=== PATIENT | female | born 1960 | race African-American/Black ===

== ENCOUNTER 2017-02-04 23:01 | Emergency (ER) | payer SELFPAY ==
[2017-02-04 23:57] LABS: #Eosinphils 0.3 thou/uL (0.0-0.7); #Monocytes 0.8 thou/uL (0.11-0.59); #Neutrophils 3.6 thou/uL (1.40-6.50); %Basophils 0.6 % (0.0-1.0); %Eosinophils 3.5 % (0.0-10.0); %Lymphocytes 38.4 % (21.0-51.0); %Monocytes 10.3 % (0.0-10.0); Mean Platelet Volume 7.1 fL (7.4-10.4); Red Blood Cell (RBC) Count 4.17 mill/uL (4.20-5.40); White Blood Cell (WBC) Count 7.7 thou/uL (4.8-10.8)
[2017-02-05] LABS: ALT (SGPT) 12 U/L (8-55); AST (SGOT) 11 U/L (5-34); Alkaline Phosphatase 71 U/L (40-150); Anion Gap 9 mmol/L (10-20); BUN (Urea Nitrogen) 7 mg/dL (9.8-20.1); Bilirubin, Total 0.2 mg/dL (0.2-1.2); Calc. Creatinine Clearance 0 mL/min (70-130); Calcium 9.9 mg/dL (7.8-10.44); Carbon Dioxide 29 mmol/L (22-29); Chloride 104 mmol/L (98-107); Estimated GFR-MDRD 73; Globulin 3.8 g/dL (2.4-3.5); Protein, Total 7.6 g/dL (6.0-8.3)
== END 2017-02-04 23:45 | disposition home or self-care (01) ==
LOC: ERS 23:01
DX: I10 Essential (primary) hypertension (principal); E78.5 Hyperlipidemia, unspecified; J44.9 Chronic obstructive pulmonary disease, unspecified; E11.9 Type 2 diabetes mellitus without complications; F25.0 Schizoaffective disorder, bipolar type; Z87.891 Personal history of nicotine dependence; Z79.82 Long term (current) use of aspirin; Z79.4 Long term (current) use of insulin; Z79.899 Other long term (current) drug therapy
CPT/HCPCS: 36415; 80053; 85025; 99283

== ENCOUNTER 2017-02-24 10:50 | Inpatient (IN) | payer OTHER, SELFPAY ==
[2017-02-24 11:37] LABS: Hematocrit 34.1 % (36.0-47.0); Mean Platelet Volume 7.1 fL (7.4-10.4); Red Blood Cell (RBC) Count 3.75 mill/uL (4.20-5.40); White Blood Cell (WBC) Count 8.3 thou/uL (4.8-10.8)
[2017-02-24 12:01] LABS: ALT (SGPT) 30 U/L (8-55); AST (SGOT) 27 U/L (5-34); Alkaline Phosphatase 70 U/L (40-150); Anion Gap 12 mmol/L (10-20); BUN (Urea Nitrogen) 9 mg/dL (9.8-20.1); Bilirubin, Total 0.6 mg/dL (0.2-1.2); Calc. Creatinine Clearance 0 mL/min (70-130); Calcium 9.9 mg/dL (7.8-10.44); Carbon Dioxide 24 mmol/L (22-29); Chloride 88 mmol/L (98-107); Estimated GFR-MDRD 83; Globulin 3.7 g/dL (2.4-3.5); Metamyelocyte 1 % (0-0); Neutrophil 51 % (42-75); Protein, Total 7.7 g/dL (6.0-8.3); Reactive Lymphocytes 1 % (0-10)
[2017-02-24 14:11] LABS: Bilirubin Negative (Negative); Blood, Urine Negative (Negative); Glucose, Urine (Dipstick) Negative (Negative); Ketone, Urine Negative (Negative); Nitrite Negative (Negative); Protein, Urine (Dipstick) Negative (Neg-Trace); Urobilinogen 0.2 mg/dL (0.2-1.0)
[2017-02-24 14:12] LABS: Bacteria/HPF Rare-Few HPF (None Seen); Hyaline Casts/LPF 0-3 HYALINE CAST LPF (0-3 Hyaline); RBC/HPF 0-3 HPF (0-3); Squamous Epithelial None Seen HPF (0-3); WBC/HPF None Seen HPF (0-3)
[2017-02-24] MEDS ORDERED: Dextrose 50% Abboject 50 ML SYRINGE SLOW IVP PRN (15:13)
[2017-02-24] MEDS ORDERED: Dextrose 5% in Water 1,000 ML IV PRN (15:13)
[2017-02-24] MEDS ORDERED: Sodium Chloride 0.9% 1,000 ML IV SCH (15:13)
[2017-02-24 15:38] LABS: Osmolality, Urine 149 mOsm/kg (300-900)
[2017-02-24 15:49] LABS: Sodium, Urine 32 mmol/L (Not Available); Urea Nitrogen, Random Urine 135 mg/dl
[2017-02-24 16:02] VITALS: BMI 36.4
[2017-02-24] MEDS: Atorvastatin Calcium 10 MG TAB PO SCH (16:26)
[2017-02-24] MEDS: Gabapentin 300 MG CAP PO SCH ×2 (16:27→20:40)
[2017-02-24] MEDS: cloNIDine 0.1 MG TAB PO SCH ×2 (16:27→20:40)
[2017-02-24] MEDS ORDERED: FLU VACC QS2017-18 36 mo. & older 0.5 ML SYRINGE IM ONE (17:00)
--- NOTE | 2017-02-24 17:22 | HP-2 ---
DATE OF SERVICE: 02/24/2017 TIME: 1400 hours. CODE STATUS: FULL. PRIMARY CARE PHYSICIAN: [facility]. ATTENDING PHYSICIAN: Armando Castro M.D. RESIDENT: Kervin Dash D.O. HISTORIAN: Patient. SPECIALIST: FADI. CHIEF COMPLAINT: Lightheadedness. HISTORY OF PRESENT ILLNESS: A 56-year-old female here with a complaint of dizziness that started this morning. She had similar symptoms in November where she was diagnosed with hyponatremia which was associated with hydrochlorothiazide. Since her previous discharge, she had been off of HCTZ; however, within the last week she was restarted on the medication by her PCP. In the emergency room, she has sodium of 120. Dr. Rosas was consulted in the emergency room and it was recommended that she will be started on 75 mL per hour normal saline and be admitted. PAST MEDICAL HISTORY: Hypertension, COPD, type 2 diabetes, bipolar disorder, and schizophrenia. PAST SURGICAL HISTORY: Bilateral knee replacement, right shoulder replacement, and hysterectomy. ALLERGIES: IODINE. MEDICATIONS: Lisinopril 40 mg daily, iron 325 mg daily, ASA 81 mg daily, folic acid 400 mcg daily, hydrochlorothiazide 25 mg daily, carvedilol 25 mg b.i.d., lovastatin 20 mg daily, gabapentin 300 mg 2 tabs t.i.d., amlodipine 50 mg daily , clonidine 0.1 mg t.i.d., amitriptyline 25 mg at bedtime p.r.n. for sleep, insulin 70/30, 30 units daily, and Invega Sustenna injection. FAMILY HISTORY: Maternal lung cancer, paternal CVA and CAD. SOCIAL HISTORY: Tobacco 2 packs per day. She quit within the last 10 years a 48-[id number]-gkfs history. ETOH: None. Drugs: None. REVIEW OF SYSTEMS: GENERAL: Denies fever, chills, change in appetite, weight loss, no night sweats , or fatigue. HEENT: Denies vision changes or eye pain. ENT: Nasal congestion or rhinorrhea. RESPIRATORY: Admits to cough at night and shortness of breath that she associates with COPD. CARDIOVASCULAR: Denies any chest pain, palpitations or edema. GASTROINTESTINAL: Denies any nausea, vomiting, or diarrhea. GENITOURINARY: Denies any dysuria or polyuria. SKIN: Denies any rashes or lesions. MUSCULOSKELETAL: Denies any pain or tenderness. NEUROLOGIC: Denies any weakness or numbness. Admits to presyncope. PSYCHIATRIC: Denies any anxiety or depression. PHYSICAL EXAMINATION: VITAL SIGNS: Blood pressure 136/91, pulse 79, respiratory rate 20, T-max 98.5, pulse oximetry 97% on room air, current weight is 90.72 kilograms. GENERAL: The patient is alert and oriented x3 in no apparent distress. HEENT: PERRLA, EOMI. NECK: Supple, without lymphadenopathy. CARDIAC: Regular rate and rhythm without murmur or gallops. RESPIRATORY: There is normal effort. CTA bilaterally. No retractions. SKIN: Warm and dry. ABDOMEN: Soft and nontender, bowel sounds in all 4 quadrants without mass or distention. EXTREMITIES: There is no cyanosis or edema. MUSCULOSKELETAL: Tone is within normal limits. NEUROLOGICAL: No focal neurological deficits and cranial nerves II-XII are grossly intact. LABORATORY DATA: CBC: Hemoglobin 11.9, hematocrit 34.1, white count 8.3, platelets 219, MCV is 91, 51% neutrophils. CMP: Sodium 120, potassium 4.4, chloride 88, bicarbonate 24, BUN is 9, creatinine is 0.85, glucose is 143, calcium is 9.9, total serum protein 7.7, albumin is 4.0. AST 27, ALT 30, alkaline phosphatase 70, total bilirubin 0.6, GFR is 83. EKG shows ST abnormalities in leads I, II, aVF, V5 and V6. These are consistent with previous EKG changes. ASSESSMENT AND PLAN: This is a 56-year-old female with symptomatic hyponatremia. 1. Hyponatremia, we will run normal saline at 75 mL per hour per Nephrology recommendations. We will do BMP q.2 x3 and then check BMP daily with a goal to raise sodium no more than 12 mL per liter within the first 24 hours. Stop hydrochlorothiazide. Monitor orthostatic vitals. 2. Anemia. The patient is asymptomatic. Hemoglobin is in a range that is normal for her. According to previous record, she is typically in the mid to high 11's, low to mid 13's. We will follow CBC and morning labs. 3. Hypertension. Restart lisinopril, Coreg, amlodipine, hold hydrochlorothiazide as above. 4. Chronic obstructive pulmonary disease. The patient currently does not have any increased O2 need and is satting well on room air. Monitor O2 sat with her finals and provide oxygen support p.r.n. 5. Type 2 diabetes. We will restart her home 70/30 and metformin. Accu-Cheks a.c. and at bedtime, consistent carb diet. 6. Bipolar disorder. The patient is stable. She is on Invega injection and is currently not due. 7. Schizophrenia, stable as above. 8. Tobacco use, counseled cessation of this. YUMIKOD
[2017-02-24] MEDS: HumaLOG 300 UNITS/3 ML VIAL SC PRN (17:26)
[2017-02-24 17:47] LABS: Anion Gap 13 mmol/L (10-20); BUN (Urea Nitrogen) 9 mg/dL (9.8-20.1); Calc. Creatinine Clearance 99 mL/min (70-130); Calcium 9.9 mg/dL (7.8-10.44); Carbon Dioxide 24 mmol/L (22-29); Chloride 91 mmol/L (98-107); Estimated GFR-MDRD 81
[2017-02-24] MEDS: Sodium Chloride 0.9% 1,000 ML IV SCH (18:57)
[2017-02-24 20:05] LABS: Anion Gap 10 mmol/L (10-20); BUN (Urea Nitrogen) 9 mg/dL (9.8-20.1); Calc. Creatinine Clearance 77 mL/min (70-130); Calcium 9.5 mg/dL (7.8-10.44); Carbon Dioxide 26 mmol/L (22-29); Chloride 92 mmol/L (98-107); Estimated GFR-MDRD 61
[2017-02-24] MEDS: Amitriptyline HCl 25 MG TAB PO SCH (20:40)
[2017-02-24] MEDS: Carvedilol 25 MG TAB PO SCH (20:40)
[2017-02-24] MEDS: Insulin NPH/Reg Insulin Hm 300 UNITS/3 ML VIAL SC SCH (20:41)
[2017-02-24] MEDS: HYDROcodone/Acetaminophen 10/325 mg Tablet PO PRN (22:04)
[2017-02-24 23:23] LABS: Anion Gap 9 mmol/L (10-20); BUN (Urea Nitrogen) 11 mg/dL (9.8-20.1); Calc. Creatinine Clearance 88 mL/min (70-130); Calcium 9.4 mg/dL (7.8-10.44); Carbon Dioxide 28 mmol/L (22-29); Chloride 93 mmol/L (98-107); Estimated GFR-MDRD 72
[2017-02-25 02:11] LABS: Hematocrit 33.3 % (36.0-47.0); Mean Platelet Volume 6.6 fL (7.4-10.4); Red Blood Cell (RBC) Count 3.66 mill/uL (4.20-5.40); White Blood Cell (WBC) Count 6.9 thou/uL (4.8-10.8)
[2017-02-25 02:24] LABS: Neutrophil 51 % (42-75)
[2017-02-25 02:39] LABS: Anion Gap 10 mmol/L (10-20); BUN (Urea Nitrogen) 13 mg/dL (9.8-20.1); Calc. Creatinine Clearance 79 mL/min (70-130); Calcium 9.2 mg/dL (7.8-10.44); Carbon Dioxide 26 mmol/L (22-29); Chloride 91 mmol/L (98-107); Estimated GFR-MDRD 63
[2017-02-25] MEDS: Sodium Chloride 0.9% 1,000 ML IV SCH ×2 (05:43→09:07)
--- NOTE | 2017-02-25 06:10 | CON ---
DATE OF CONSULTATION: 02/24/2017 CONSULTING PHYSICIAN: Dr. Castro. REASON FOR CONSULTATION: Hyponatremia. REASON FOR ADMISSION: Lightheadedness. HISTORY OF PRESENT ILLNESS: A 56-year-old female with history of hypertension, COPD, type 2 diabete s who came to the hospital with lightheadedness and was found to have a sodium level of 120. Carl aleman does have a history of hyponatremia, but sodium level was normal. The patient was recently restar yasmin on hydrochlorothiazide. No fever or chills, no nausea, vomiting, diarrhea reported. PAST MEDICAL HISTORY: Positive for hypertension, COPD, type 2 diabetes, bipolar disorder, schizophr enia. PAST SURGICAL HISTORY: Bilateral knee replacement, right shoulder repair, hysterectomy. HOME MEDICATIONS: Lisinopril, iron, aspirin, folic acid, hydrochlorothiazide, carvedilol, lovastati n, gabapentin, amlodipine, clonidine, amitriptyline, insulin 70/30, Invega. FAMILY HISTORY: No history of any kidney disease. SOCIAL HISTORY: Smokes 2 packs per day. No alcohol or illicit drug abuse. REVIEW OF SYSTEMS: The following complete review of systems was negative, unless otherwise mentione d in the HPI or below: Constitutional: Weight loss or gain, ability to conduct usual activities. Skin: Rash, itching. Eyes: Double vision, pain. ENT/Mouth: Nose bleeding, neck stiffness, pain, tenderness. Cardiovascular: Palpitations, dyspnea on exertion, orthopnea. Respiratory: Shortness of breath, wheezing, cough, hemoptysis, fever or night sweats. Gastrointestinal: Poor appetite, abdominal pain, heartburn, nausea, vomiting, constipation, or diar esperanza. Genitourinary: Urgency, frequency, dysuria, nocturia. Musculoskeletal: Pain, swelling. Neurologic/Psychiatric: Anxiety, depression. Allergy/Immunologic: Skin rash, bleeding tendency. ALLERGIES: IODINE. PHYSICAL EXAMINATION: GENERAL: Well-built female in no apparent distress. VITAL SIGNS: Temperature 98.2, pulse 82, respirations 20, blood pressure 137/76. HEENT: Atraumatic, normocephalic. Oral mucosa is moist. NECK: Supple, no masses. CARDIOVASCULAR: S1 and S2 heard. Rate and rhythm regular. RESPIRATORY: Clear. ABDOMEN: Soft. MUSCULOSKELETAL: No tenderness. No edema. DERMATOLOGIC: No skin rash. NEUROLOGIC: Alert, awake. PSYCHIATRIC: Mood and affect normal. LABORATORY DATA: Hemoglobin is 11.9, potassium is 4.2, BUN is 9, creatinine is 0.8, sodium is 124 f rom 120, it was 138 on 02/04/2017. ASSESSMENT AND PLAN: 1. Hyponatremia. Urine studies suggest possible volume depletion and sodium level is better with I V fluids. Patient was on normal saline at 75 mL per hour, reduced to 50 mL per hour. Check sodium q.6 hours x4 and orders placed. Hold IV fluids if sodium level more than 128 mEq not more nahomy n 18 in 48 hours. 2. Hypochloremia. 3. Hypertension. Hold hydrochlorothiazide for now and continue other medications and up titrate ot her medications. 4. History of bipolar disorder. Plan is to go on IV fluids, hold hydrochlorothiazide and monitor sodium closely and we will follow. Thank you for the consultation.
--- NOTE | 2017-02-25 08:55 | PDOC.FM ---
- Subjective Subjective: Patient reports that she is feeling a little bit better this AM. She does not have as much dizziness or lightheadedness. She does report that she is still feeling muscle aches/cramps and that her skin hurts. She denies any seizures, chest pain, SOB. She had some nausea after eating last night and reports that she has chronic constipation and has not had a BM in about 2 weeks. - Objective MAR Reviewed: Yes Vital Signs & Weight: Vital Signs (12 hours) Temp Pulse Resp BP Pulse Ox 02/25/17 04:00 98.5 F 80 16 109/56 L 95 02/25/17 00:00 75 16 101/51 L Weight Weight 87.362 kg I&O: 02/24/17 02/25/17 02/26/17 06:59 06:59 06:59 Intake Total 1739 Output Total 1900 Balance -161 Result Diagrams: 02/25/17 02:01 02/25/17 02:01 Phys Exam - Physical Examination Constitutional: NAD HEENT: moist MMs Respiratory: no wheezing, no rales, no rhonchi, clear to auscultation bilateral Cardiovascular: RRR, no significant murmur, no rub, gallop Gastrointestinal: soft, non-tender, positive bowel sounds Musculoskeletal: no edema, pulses present Neurological: non-focal, moves all 4 limbs Psychiatric: normal affect, A&O x 3 Dx/Plan (1) Hyponatremia with extracellular fluid depletion Code(s): E87.1 - HYPO-OSMOLALITY AND HYPONATREMIA Status: Acute Plan: Thiazide-induced hyponatremia, pt was restarted on her HCTZ about 6 days ago and has a history of thiazide induced hyponatremia about 2 months ago which resolved with discontinuation of the thiazide and light fluids. At the time she also had hyperkalemia, but she was also on spironolactone, so that was also discontinued. -d/c HCTZ -NS @ 50 mL/hr -Vasudev with Nephrology was consulted, appreciate recs -Monitor BMP, do not want Na to increase > 8-12 in 24 hours -Encourage PO intake (2) Diabetes mellitus Code(s): E11.9 - TYPE 2 DIABETES MELLITUS WITHOUT COMPLICATIONS Status: Chronic Qualifiers: Diabetes mellitus type: type 2 Diabetes mellitus complication status: with unspecified complications Diabetes mellitus termite control servicer insulin use: with termite control servicer use Qualified Code(s): E11.8 - Type 2 diabetes mellitus with unspecified complications; Z79.4 - [facility] (current) use of insulin; Z79.4 - ad terminal makeup operator ( current) use of insulin; Z79.4 - ad terminal makeup operator (current) use of insulin; Z79.4 - [facility] (current) use of insulin Plan: Pt on 70/30 at home for her diabetes -Diabetic diet -Accuchecks ACHS -70/30 BID -SSI (3) Hypertension Code(s): I10 - ESSENTIAL (PRIMARY) HYPERTENSION Status: Chronic Qualifiers: Hypertension type: essential hypertension Qualified Code(s): I10 - Essential (primary) hypertension Plan: Pt has HTN and is on several home medications. -Will continue all medications except HCTZ 2/2 hyponatremia (4) Constipation Code(s): K59.00 - CONSTIPATION, UNSPECIFIED Status: Acute Qualifiers: Constipation type: unspecified constipation type Qualified Code(s): K59.00 - Constipation, unspecified Plan: Pt has chronic constipation and has not had a BM in about 2-3 weeks. -Will give stool softener and laxative (5) COPD (chronic obstructive pulmonary disease) Status: Chronic Qualifiers: COPD type: unspecified COPD Plan: Patient has COPD, not in an acute exacerbation -Duonebs prn -O2 prn (6) Bipolar 1 disorder Code(s): F31.9 - BIPOLAR DISORDER, UNSPECIFIED Status: Chronic Plan: Stable, Pt gets Invega
[2017-02-25] MEDS ORDERED: Bisacodyl 5 MG TAB PO PRN (09:06)
[2017-02-25] MEDS ORDERED: Ondansetron ODT 8 MG TAB SL PRN (09:06)
--- NOTE | 2017-02-25 09:34 | PRG ---
DATE OF SERVICE: 02/25/2017 SUBJECTIVE: Patient was seen and examined at bedside and overnight events noted. Patient denies an y shortness of breath or chest pain or palpitation. No history of nausea or vomiting or diarrhea or fever or chills or cramps. OBJECTIVE: GENERAL: This is a well built female in no apparent distress. VITAL SIGNS: Temperature 98.5, pulse 80, respiratory rate 16, blood pressure 109/56. HEENT: Atraumatic, normocephalic. Oral mucosa is moist. NECK: Supple. CARDIOVASCULAR: S1 and S2 heard, rate and rhythm regular. RESPIRATORY: Clear to auscultation. GASTROINTESTINAL: Abdomen is soft. MUSCULOSKELETAL: No tenderness, no edema. DERMATOLOGIC: No skin rash. NEUROLOGIC: Alert and awake and oriented X3. No focal neurologic deficits. Moving all the extremi ties. PSYCHIATRIC: Mood and affect normal. LABORATORY DATA: Potassium is 3.9, sodium is 123, goes up to 126, BUN 13, creatinine is 1.08. ASSESSMENT AND PLAN: 1. Hyponatremia. Sodium level is better from admission. We will continue slow correction of sodiu m with close monitoring. We will continue on intravenous fluids for now. The patient is feeling be tter. 2. Acute kidney injury. Creatinine is also better with IV fluids. 3. Continue to hold hydrochlorothiazide. 4. Hypochloremia. 5. Hypertension, stable. 6. History of bipolar disorder. 7. Sodium is responding to IV fluids. We will continue slow correction with close monitoring of so dium. Plan is to check sodium at 3:00 p.m. and 8:00 p.m. today and then a.m. labs. We will also ch bg TSH and cortisol level in the a.m. We will follow.
[2017-02-25] MEDS ORDERED: Senokot S 8.6-50 MG TAB PO SCH ×3 (09:45→21:00)
[2017-02-25] MEDS: Gabapentin 300 MG CAP PO SCH ×3 (09:55→20:23)
[2017-02-25] MEDS: Aspirin 81 mg Enteric Coated Tablet PO SCH (09:55)
[2017-02-25] MEDS: Ferrous Sulfate 325 MG TAB PO SCH (09:55)
[2017-02-25] MEDS: Folic Acid 1 MG TAB PO SCH (09:56)
[2017-02-25] MEDS: Cyanocobalamin (Vitamin B-12) 1,000 MCG TAB PO SCH (09:56)
[2017-02-25] MEDS: Carvedilol 25 MG TAB PO SCH ×2 (09:56→20:24)
[2017-02-25] MEDS: Insulin NPH/Reg Insulin Hm 300 UNITS/3 ML VIAL SC SCH ×2 (09:57→20:22)
[2017-02-25] MEDS: Enoxaparin Sodium 40 MG/0.4 ML SYRINGE SC SCH (09:59)
[2017-02-25] MEDS: cloNIDine 0.1 MG TAB PO SCH ×3 (10:49→20:23)
[2017-02-25] MEDS: Lisinopril 20 MG TAB PO SCH (12:04)
[2017-02-25] MEDS: HumaLOG 300 UNITS/3 ML VIAL SC PRN (12:05)
--- NOTE | 2017-02-25 13:08 | ADD-PRG ---
ADDENDUM: To the note of Dr. Anjelica Starkey. Ms. Quinteros is a pleasant 56-year-old female patient who was restarted on hydrochlorothiazide diureti c for hypertension, which had previously been discontinued, because of hyponatremia. She presented feeling sort of lightheaded and dizzy, in the ER was noted to have a serum sodium level of 120. Her urine and serum osmolality studies and sodium studies are consistent with hyponatremia secondary to thiazide diuretic. Dr. Rosas has also been consulted and has started a saline drip, which is alr elise correcting her sodium level. This morning, she is awake, alert, in no distress, complaining on ly of some heartburn, which she has a long history. We will continue the saline infusion monitoring her BMPs.
[2017-02-25] MEDS: Atorvastatin Calcium 10 MG TAB PO SCH (18:16)
[2017-02-25] MEDS: HYDROcodone/Acetaminophen 10/325 mg Tablet PO PRN (18:16)
[2017-02-25] MEDS: Amitriptyline HCl 25 MG TAB PO SCH (20:23)
[2017-02-25] MEDS: Acetaminophen 325 MG TAB PO PRN (20:24)
[2017-02-26] MEDS: Sodium Chloride 0.9% 1,000 ML IV SCH (03:52)
[2017-02-26 05:35] LABS: Anion Gap 11 mmol/L (10-20); BUN (Urea Nitrogen) 16 mg/dL (9.8-20.1); Calc. Creatinine Clearance 86 mL/min (70-130); Calcium 9.4 mg/dL (7.8-10.44); Carbon Dioxide 25 mmol/L (22-29); Chloride 99 mmol/L (98-107); Estimated GFR-MDRD 70
[2017-02-26 05:41] LABS: Hematocrit 34.5 % (36.0-47.0); Mean Platelet Volume 7.6 fL (7.4-10.4); Red Blood Cell (RBC) Count 3.72 mill/uL (4.20-5.40); White Blood Cell (WBC) Count 5.4 thou/uL (4.8-10.8)
[2017-02-26 05:42] LABS: Band 4 % (5-11); Neutrophil 59 % (42-75)
--- NOTE | 2017-02-26 08:24 | PDOC.FM ---
- Subjective Subjective: The patient reports having 4 runny bowel movements yesterday after being given the laxative, but she states that her abdominal pain has improved since then and she is not having any more nausea or runny BM's. She reports that she felt really hot all over yesterday afternoon and achy. She denies any increased cough , SOB, sore throat, chest pain, abdominal pain. She does report a small amount of dysuria and states that she was recently treated for a UTI with abx. - Objective MAR Reviewed: Yes Vital Signs & Weight: Vital Signs (12 hours) Temp Pulse Resp BP BP Pulse Ox 02/26/17 04:00 100.2 F H 86 16 110/59 L 94 L 02/25/17 23:30 99.8 F H 02/25/17 20:23 135/62 Weight Weight 86.636 kg I&O: 02/25/17 02/26/17 02/27/17 06:59 06:59 06:59 Intake Total 1739 1495 Output Total 1900 Balance -161 1495 Result Diagrams: 02/26/17 04:31 02/26/17 04:31 Additional Labs: TSH 0.0091, Free T4 1.14, AM Cortisol 14.2 Fecal Lactoferrin negative, C. diff negative Phys Exam - Physical Examination Constitutional: NAD HEENT: moist MMs Respiratory: no wheezing, no rales, no rhonchi, clear to auscultation bilateral Cardiovascular: RRR, no significant murmur, no rub, gallop Gastrointestinal: soft, non-tender, no distention, positive bowel sounds Musculoskeletal: no edema, pulses present Neurological: non-focal, moves all 4 limbs Psychiatric: normal affect, A&O x 3 Dx/Plan (1) Hyponatremia with extracellular fluid depletion Code(s): E87.1 - HYPO-OSMOLALITY AND HYPONATREMIA Status: Acute Plan: Thiazide-induced hyponatremia, pt was restarted on her HCTZ about 6 days prior to admission and has a history of thiazide-induced hyponatremia about 2 months ago which resolved with discontinuation of the thiazide and light fluids. At the time she also had hyperkalemia, but she was also on spironolactone, so that was also discontinued. Na has improved from 120 to 131 over about 36 hours with light fluids -d/c HCTZ -Vasudev with Nephrology was consulted, appreciate recs -Monitor Na, do not want Na to increase > 8-12 in 24 hours -Encourage PO intake (2) Diabetes mellitus Code(s): E11.9 - TYPE 2 DIABETES MELLITUS WITHOUT COMPLICATIONS Status: Chronic Qualifiers: Diabetes mellitus type: type 2 Diabetes mellitus complication status: with unspecified complications Diabetes mellitus detention insulin use: with terminal operator use Qualified Code(s): E11.8 - Type 2 diabetes mellitus with unspecified complications; Z79.4 - long-term (current) use of insulin; Z79.4 - long-term ( current) use of insulin; Z79.4 - intermediate school teacher (current) use of insulin; Z79.4 - long-term (current) use of insulin Plan: Pt on 70/30 at home for her diabetes -Diabetic diet -Accuchecks ACHS -70/30 BID -SSI (3) Hypertension Code(s): I10 - ESSENTIAL (PRIMARY) HYPERTENSION Status: Chronic Qualifiers: Hypertension type: essential hypertension Qualified Code(s): I10 - Essential (primary) hypertension Plan: Pt has HTN and is on several home medications. -Will continue all medications except HCTZ 2/2 hyponatremia (4) Constipation Code(s): K59.00 - CONSTIPATION, UNSPECIFIED Status: Resolved Qualifiers: Constipation type: unspecified constipation type Qualified Code(s): K59.00 - Constipation, unspecified Plan: Pt has chronic constipation and has not had a BM in about 2-3 weeks. Gave stool softener and laxative - Pt had several BM's after this. She is now feeling much better from this standpoint. (5) COPD (chronic obstructive pulmonary disease) Status: Chronic Qualifiers: COPD type: unspecified COPD Plan: Patient has COPD, not in an acute exacerbation -Duonebs prn -O2 prn (6) Bipolar 1 disorder Code(s): F31.9 - BIPOLAR DISORDER, UNSPECIFIED Status: Chronic Plan: Stable, Pt gets Invega
[2017-02-26] MEDS: cloNIDine 0.1 MG TAB PO SCH ×3 (08:42→21:40)
[2017-02-26] MEDS: Cyanocobalamin (Vitamin B-12) 1,000 MCG TAB PO SCH (08:42)
[2017-02-26] MEDS: Acetaminophen 325 MG TAB PO PRN ×2 (08:42→16:45)
[2017-02-26] MEDS: Folic Acid 1 MG TAB PO SCH (08:42)
[2017-02-26] MEDS: Ferrous Sulfate 325 MG TAB PO SCH (08:42)
[2017-02-26] MEDS: Lisinopril 20 MG TAB PO SCH (08:42)
[2017-02-26] MEDS: Aspirin 81 mg Enteric Coated Tablet PO SCH (08:43)
[2017-02-26] MEDS: HumaLOG 300 UNITS/3 ML VIAL SC PRN ×2 (08:43→16:45)
[2017-02-26] MEDS: Insulin NPH/Reg Insulin Hm 300 UNITS/3 ML VIAL SC SCH ×2 (08:43→21:41)
[2017-02-26] MEDS: Gabapentin 300 MG CAP PO SCH ×3 (08:43→21:41)
[2017-02-26] MEDS: Carvedilol 25 MG TAB PO SCH ×2 (08:43→21:41)
[2017-02-26] MEDS: Enoxaparin Sodium 40 MG/0.4 ML SYRINGE SC SCH (08:44)
--- NOTE | 2017-02-26 11:18 | ADD-PRG ---
This is an addendum to the note of Dr. Anjelica Starkey. Ms. Quinteros feels fine this morning except for some vague nausea. She had a low grade fever last nig ht, but is currently afebrile other than nausea asymptomatic for illness. She was found to have a l ow TSH, but a normal free T4. This could represent euthyroid sick syndrome or an early subclinical hyperthyroidism. This needs to be followed as an outpatient. We will go ahead and order a TSH rece ptor antibody to consider the possibility of early Graves' disease. In the event, she has no sympto ms of hyperthyroidism and her free T4 is normal.
[2017-02-26 16:26] LABS: Hematocrit 37.1 % (36.0-47.0); Mean Platelet Volume 7.6 fL (7.4-10.4); Red Blood Cell (RBC) Count 4.01 mill/uL (4.20-5.40); White Blood Cell (WBC) Count 3.7 thou/uL (4.8-10.8)
[2017-02-26] MEDS: Atorvastatin Calcium 10 MG TAB PO SCH (16:45)
[2017-02-26 17:14] LABS: Band 5 % (5-11); Metamyelocyte 1 % (0-0); Myelocyte 1 % (0-0); Neutrophil 39 % (42-75); Ovalocytes SLIGHT = 2-5 cells (100X) (0-1/hpf); Polychromasia SLIGHT = 2-3 cells (100X) (0-2/hpf); Reactive Lymphocytes 3 % (0-10)
[2017-02-26] MEDS ORDERED: Sodium Chloride 0.9% 500 ML IV SCH (17:30)
--- NOTE | 2017-02-26 18:44 | RAD ---
TWO VIEW CHEST: 02/26/17 COMPARISON: 12/29/16 INDICATION: Fever, nocturnal cough. FINDINGS: There is extensive artifact overlying the chest limiting detail. No consolidation, effusion, or pneu mothorax. The cardiac silhouette is accentuated by portable technique. The convexity curvature cente red at the low thoracic spine. No additional significant interval change. IMPRESSION: No lobar consolidation. POS: [facility]
--- NOTE | 2017-02-26 19:46 | PRG ---
DATE OF SERVICE: 02/26/2017 SUBJECTIVE: Patient was seen and examined at bedside and overnight events noted. Patient denies an y shortness of breath or chest pain or palpitation. No history of nausea or vomiting or diarrhea or fever or chills or cramps. OBJECTIVE: GENERAL: This is a well-built female, in no apparent distress. VITAL SIGNS: Temperature . HEENT: Atraumatic, normocephalic, oral mucosa is moist. NECK: Supple. CARDIOVASCULAR: S1, S2 heard, rate and rhythm regular. RESPIRATORY: Clear to auscultation. GASTROINTESTINAL: Abdomen is soft. MUSCULOSKELETAL: No tenderness, no edema. DERMATOLOGIC: No skin rash. NEUROLOGIC: Alert and awake and oriented x3, no focal neurologic deficits. Moving all the extremit ies. PSYCHIATRIC: Mood and affect normal. LABORATORY DATA: Sodium is 131, BUN 16, creatinine 0.9. Cortisol is 14.2, TSH is 0.79. Free T3 an d T4 level is normal. ASSESSMENT AND PLAN: 1. Hyponatremia, most likely volume depletion. IV fluids. TSH level is low, but free T3 and T4 le mendy appears to be normal. 2. clinical. 3. Hypothyroidism. 4. Acute kidney injury, stable. 5. Continue to hold hydrochlorothiazide. 6. Hypertension, stable. 7. Bipolar disorder. After her blood pressure medicines as needed. Currently, blood pressure is stable and follow up thy roid studies and continue IV fluids as tolerated, we will follow. Sodium level is much better.
[2017-02-26 20:14] LABS: Bilirubin Negative (Negative); Blood, Urine Negative (Negative); Glucose, Urine (Dipstick) Negative (Negative); Ketone, Urine Negative (Negative); Nitrite Negative (Negative); Protein, Urine (Dipstick) Negative (Neg-Trace)
[2017-02-26 20:31] LABS: Bacteria/HPF None Seen HPF (None Seen); RBC/HPF 0-3 HPF (0-3); Squamous Epithelial 0-3 HPF (0-3)
[2017-02-26 20:32] LABS: Hyaline Casts/LPF NONE SEEN LPF (0-3 Hyaline)
[2017-02-26] MEDS: Amitriptyline HCl 25 MG TAB PO SCH (21:40)
[2017-02-27 05:31] LABS: Anion Gap 14 mmol/L (10-20); BUN (Urea Nitrogen) 16 mg/dL (9.8-20.1); Calc. Creatinine Clearance 90 mL/min (70-130); Carbon Dioxide 21 mmol/L (22-29); Chloride 105 mmol/L (98-107); Estimated GFR-MDRD 75
[2017-02-27 06:01] LABS: Band 2 % (5-11); Mean Platelet Volume 7.3 fL (7.4-10.4); Metamyelocyte 1 % (0-0); Neutrophil 37 % (42-75); Red Blood Cell (RBC) Count 3.79 mill/uL (4.20-5.40); White Blood Cell (WBC) Count 3.9 thou/uL (4.8-10.8)
--- NOTE | 2017-02-27 08:06 | PDOC.FM ---
- Subjective Subjective: The patient reports that she ate dinner last night and feels much better. She denies any fevers, chills, nausea, vomiting, diarrhea, constipation, abdominal pain, chest pain, SOB, dysuria. Her muscle cramps are better and her dizziness is gone. She overall is feeling back at her baseline and slept great last night. - Objective MAR Reviewed: Yes Vital Signs & Weight: Vital Signs (12 hours) Temp Pulse Resp BP BP Pulse Ox 02/27/17 04:00 99.5 F 69 18 107/56 L 93 L 02/27/17 00:00 98.4 F 02/26/17 21:40 121/58 L Weight Weight 85.094 kg I&O: 02/26/17 02/27/17 02/28/17 06:59 06:59 06:59 Intake Total 1495 1620 Output Total 1150 Balance 1495 470 Result Diagrams: 02/27/17 04:38 02/27/17 04:38 Phys Exam - Physical Examination Constitutional: NAD HEENT: moist MMs Respiratory: no wheezing, no rales, no rhonchi, clear to auscultation bilateral Cardiovascular: RRR, no significant murmur, no rub, gallop Gastrointestinal: soft, non-tender, no distention, positive bowel sounds Musculoskeletal: no edema, pulses present Neurological: non-focal, moves all 4 limbs Psychiatric: normal affect, A&O x 3 Dx/Plan (1) Hyponatremia with extracellular fluid depletion Code(s): E87.1 - HYPO-OSMOLALITY AND HYPONATREMIA Status: Resolved Plan: Thiazide-induced hyponatremia, pt was restarted on her HCTZ about 6 days prior to admission and has a history of thiazide-induced hyponatremia about 2 months ago which resolved with discontinuation of the thiazide and light fluids. At the time she also had hyperkalemia, but she was also on spironolactone, so that was also discontinued. Na has improved from 120 to 139 over 48 hours with light fluids -d/c HCTZ -Vasudev with Nephrology was consulted, appreciate recs -Encourage PO intake (2) Diabetes mellitus Code(s): E11.9 - TYPE 2 DIABETES MELLITUS WITHOUT COMPLICATIONS Status: Chronic Qualifiers: Diabetes mellitus type: type 2 Diabetes mellitus complication status: with unspecified complications Diabetes mellitus middle or intermediate school principal insulin use: with retirement use Qualified Code(s): E11.8 - Type 2 diabetes mellitus with unspecified complications; Z79.4 - longterm (current) use of insulin; Z79.4 - ferry terminal supervisor ( current) use of insulin; Z79.4 - ferry terminal supervisor (current) use of insulin; Z79.4 - ferry terminal supervisor (current) use of insulin Plan: Pt on 70/30 at home for her diabetes -Diabetic diet -Accuchecks ACHS -70/30 BID -SSI (3) Hypertension Code(s): I10 - ESSENTIAL (PRIMARY) HYPERTENSION Status: Chronic Qualifiers: Hypertension type: essential hypertension Qualified Code(s): I10 - Essential (primary) hypertension Plan: Pt has HTN and is on several home medications. Her BP dropped to 90/55 yesterday , gave her a 500mL bolus of NS, which improved her to 121/58. -Will continue all medications except HCTZ 2/2 hyponatremia (4) Constipation Code(s): K59.00 - CONSTIPATION, UNSPECIFIED Status: Resolved Qualifiers: Constipation type: unspecified constipation type Qualified Code(s): K59.00 - Constipation, unspecified Plan: Pt has chronic constipation and has not had a BM in about 2-3 weeks. Gave stool softener and laxative - Pt had several BM's after this. She is now feeling much better from this standpoint. (5) COPD (chronic obstructive pulmonary disease) Status: Chronic Qualifiers: COPD type: unspecified COPD Plan: Patient has COPD, not in an acute exacerbation -Duonebs prn -O2 prn (6) Bipolar 1 disorder Code(s): F31.9 - BIPOLAR DISORDER, UNSPECIFIED Status: Chronic Plan: Stable, Pt gets Invega
[2017-02-27] MEDS: Aspirin 81 mg Enteric Coated Tablet PO SCH (08:56)
[2017-02-27] MEDS: Cyanocobalamin (Vitamin B-12) 1,000 MCG TAB PO SCH (08:57)
[2017-02-27] MEDS: cloNIDine 0.1 MG TAB PO SCH (08:57)
[2017-02-27] MEDS: Carvedilol 25 MG TAB PO SCH (08:57)
[2017-02-27] MEDS: Folic Acid 1 MG TAB PO SCH (08:58)
[2017-02-27] MEDS: Ferrous Sulfate 325 MG TAB PO SCH (08:58)
[2017-02-27] MEDS: Enoxaparin Sodium 40 MG/0.4 ML SYRINGE SC SCH (08:58)
[2017-02-27] MEDS: Insulin NPH/Reg Insulin Hm 300 UNITS/3 ML VIAL SC SCH (08:59)
[2017-02-27] MEDS: Gabapentin 300 MG CAP PO SCH (08:59)
[2017-02-27] MEDS: Lisinopril 20 MG TAB PO SCH (09:01)
[2017-02-27 11:27] VITALS: BP 144/67; TEMP 98.7
--- NOTE | 2017-02-27 12:03 | ADD-PRG ---
DATE OF SERVICE: 02/27/2017 This is an addendum to the note of Dr. Anjelica Starkey. Ms. Quinteros feels much better this morning. She is normotensive with a blood pressure 120/60. Yeste rday she became slightly hypotensive, but responded well to a half liter bolus of normal saline. Sh e states she is feeling back to her baseline and is eating normally. Her sodium is now back up to 1 39. She has been instructed again to not take hydrochlorothiazide. She will be discharged today. We will continue her workup for possible subclinical hyperthyroidism or thyroiditis as an outpatient .
--- NOTE | 2017-02-27 15:00 | PRG ---
DATE OF SERVICE: 02/27/2017 SUBJECTIVE: Patient was seen and examined at bedside and overnight events noted. Patient denies an y shortness of breath or chest pain or palpitation. No history of nausea or vomiting or diarrhea or fever or chills or cramps. OBJECTIVE: GENERAL: This is a well-built female in no apparent distress. VITAL SIGNS: Temperature 97, pulse 73, respiratory rate 16, blood pressure 144/67. HEENT: Atraumatic, normocephalic. Oral mucosa is moist. NECK: Supple. CARDIOVASCULAR: S1 and S2 heard, rate and rhythm regular. RESPIRATORY: Clear to auscultation. GASTROINTESTINAL: Abdomen is soft. MUSCULOSKELETAL: No tenderness, no edema. DERMATOLOGIC: No skin rash. NEUROLOGIC: Alert and awake and oriented X3. No focal neurologic deficits. Moving all the extremi ties. PSYCHIATRIC: Mood and affect normal. LABORATORY DATA: Potassium is 4.0. Sodium is 136. Creatinine is 0.9. ASSESSMENT AND PLAN: 1. Hyponatremia, most likely volume depletion, much better. Sodium level is back to normal. 2. Acute kidney injury, stable. 3. Hypertension. 4. Bipolar disorder. 5. The patient was advised to follow up with clinic in 1 week. Okay to discharge home.
== END 2017-02-27 11:42 | disposition home or self-care (01) | DRG 641 ==
LOC: ERS 10:50 → 2NO 15:50
PROVIDERS: ADMIT Family Medicine; ATTEND Family Medicine
DX: E87.1 Hypo-osmolality and hyponatremia (principal); N17.9 Acute kidney failure, unspecified; E11.8 Type 2 diabetes mellitus with unspecified complications; F20.9 Schizophrenia, unspecified; D64.9 Anemia, unspecified; J44.9 Chronic obstructive pulmonary disease, unspecified; I10 Essential (primary) hypertension; Z79.4 Long term (current) use of insulin; F31.9 Bipolar disorder, unspecified; F17.210 Nicotine dependence, cigarettes, uncomplicated; Z23 Encounter for immunization; Z96.653 Presence of artificial knee joint, bilateral; Z96.611 Presence of right artificial shoulder joint; Z90.710 Acquired absence of both cervix and uterus; E86.9 Volume depletion, unspecified; E87.8 Other disorders of electrolyte and fluid balance, not elsewhere classified; T50.2X5A Adverse effect of carbonic-anhydrase inhibitors, benzothiadiazides and other diuretics, initial encounter; K59.00 Constipation, unspecified; Z88.8 Allergy status to other drugs, medicaments and biological substances
CPT/HCPCS: 36415; 36416; 71020; 80048; 80053; 81003; 81015; 82533; 82570; 83605; 83630; 83930; 83935; 84238; 84300; 84439; 84443; 84481; 84540; 85025; 87040; 87077; 87086; 87149; 87324; 87449; 90471; 90682; 90732; 93005; 96360; A4216; G0008; G0009; J1650; Q2036

== ENCOUNTER 2017-03-10 15:17 | Inpatient (IN) | payer OTHER, SELFPAY ==
[2017-03-10 17:28] LABS: #Basophils 0.1 thou/uL (0.0-0.2); #Eosinphils 0.4 thou/uL (0.0-0.7); #Lymphocytes 3.5 thou/uL (1.20-3.40); #Monocytes 1.1 thou/uL (0.11-0.59); #Neutrophils 5.8 thou/uL (1.40-6.50); %Basophils 0.8 % (0.0-1.0); %Eosinophils 3.3 % (0.0-10.0); %Lymphocytes 32.6 % (21.0-51.0); %Monocytes 9.7 % (0.0-10.0); Hematocrit 35.3 % (36.0-47.0); Mean Platelet Volume 6.6 fL (7.4-10.4); Red Blood Cell (RBC) Count 3.85 mill/uL (4.20-5.40); White Blood Cell (WBC) Count 10.8 thou/uL (4.8-10.8)
[2017-03-10 17:49] LABS: ALT (SGPT) 18 U/L (8-55); AST (SGOT) 18 U/L (5-34); Alkaline Phosphatase 64 U/L (40-150); Anion Gap 15 mmol/L (10-20); BUN (Urea Nitrogen) 9 mg/dL (9.8-20.1); Bilirubin, Total 0.4 mg/dL (0.2-1.2); CK (CPK) 85 U/L (29-168); Calc. Creatinine Clearance 0 mL/min (70-130); Calcium 9.3 mg/dL (7.8-10.44); Carbon Dioxide 21 mmol/L (22-29); Chloride 96 mmol/L (98-107); Estimated GFR-MDRD 89; Globulin 3.9 g/dL (2.4-3.5); Protein, Total 7.9 g/dL (6.0-8.3)
[2017-03-10 17:53] LABS: Troponin I Less than 0.010 ng/mL (< 0.028)
[2017-03-10] MEDS ORDERED: Sodium Chloride 0.9% 1,000 ML IV SCH (20:48)
[2017-03-10] MEDS ORDERED: Ondansetron HCl/PF 4 MG/2 ML Vial IVP PRN (21:02)
[2017-03-10] MEDS ORDERED: Ondansetron ODT 4 MG TAB SL PRN (21:02)
[2017-03-10] MEDS ORDERED: HYDROcodone/Acetaminophen 5/325 mg Tablet PO PRN ×2 (21:02)
[2017-03-10] MEDS ORDERED: Acetaminophen 325 MG TAB PO PRN (21:02)
[2017-03-10] MEDS ORDERED: Meclizine HCl 25 MG TAB PO PRN (21:55)
[2017-03-10] MEDS ORDERED: Insulin NPH/Reg Insulin Hm 300 UNITS/3 ML VIAL SC PRN (21:55)
[2017-03-10] MEDS ORDERED: HYDROcodone/Acetaminophen 10/325 mg Tablet PO PRN (21:55)
[2017-03-10] MEDS ORDERED: Dextrose 5% in Water 1,000 ML IV PRN (21:56)
[2017-03-10] MEDS ORDERED: Dextrose 50% Abboject 50 ML SYRINGE SLOW IVP PRN (21:56)
[2017-03-10] MEDS ORDERED: Insulin Regular 300 UNITS/3 ML VIAL SC PRN (21:56)
[2017-03-10 22:18] LABS: Bilirubin Negative (Negative); Blood, Urine Negative (Negative); Glucose, Urine (Dipstick) Negative (Negative); Ketone, Urine Negative (Negative); Nitrite Negative (Negative); Protein, Urine (Dipstick) Negative (Neg-Trace); Urobilinogen 0.2 mg/dL (0.2-1.0)
[2017-03-10 22:22] LABS: Bacteria/HPF None Seen HPF (None Seen); Hyaline Casts/LPF 0-3 HYALINE CAST LPF (0-3 Hyaline); RBC/HPF 0-3 HPF (0-3); Squamous Epithelial 0-3 HPF (0-3); WBC/HPF 0-3 HPF (0-3)
[2017-03-10 22:30] LABS: Osmolality, Urine 77 mOsm/kg (300-900)
[2017-03-10 22:58] LABS: Sodium, Urine 22 mmol/L (Not Available); Urea Nitrogen, Random Urine 71 mg/dl
[2017-03-10 23:02] LABS: Amphetamine Not Detected (NotDetected); Methadone Not Detected (NotDetected); Methamphetamine Not Detected (NotDetected)
[2017-03-10 23:08] LABS: Free T3 3.15 pg/mL (1.71-3.71)
[2017-03-10 23:18] LABS: IRF 0.356 Ratio (0.163-0.362); Reticulocyte Count 5.1 % (0.5-1.5)
[2017-03-10 23:31] LABS: Iron 61 ug/dL (50-170)
[2017-03-11 05:15] LABS: #Eosinphils 0.3 thou/uL (0.0-0.7); #Lymphocytes 2.9 thou/uL (1.20-3.40); #Neutrophils 5.5 thou/uL (1.40-6.50); %Basophils 0.4 % (0.0-1.0); %Eosinophils 2.8 % (0.0-10.0); %Lymphocytes 30.3 % (21.0-51.0); %Monocytes 9.9 % (0.0-10.0); Hematocrit 36.6 % (36.0-47.0); Mean Platelet Volume 7.1 fL (7.4-10.4); Red Blood Cell (RBC) Count 3.92 mill/uL (4.20-5.40); White Blood Cell (WBC) Count 9.7 thou/uL (4.8-10.8)
[2017-03-11 05:34] LABS: Anion Gap 12 mmol/L (10-20); BUN (Urea Nitrogen) 8 mg/dL (9.8-20.1); Calc. Creatinine Clearance 105 mL/min (70-130); Calcium 9.9 mg/dL (7.8-10.44); Carbon Dioxide 22 mmol/L (22-29); Chloride 105 mmol/L (98-107); Estimated GFR-MDRD 89
--- NOTE | 2017-03-11 06:58 | HP-2 ---
CODE STATUS: FULL. PRIMARY CARE PHYSICIAN: [facility] call. ATTENDING: Dr. Salvador Chavez RESIDENT: Sudhakar Steen M.D. HISTORIAN: The patient. CHIEF COMPLAINT: Dizziness and muscle cramps. HISTORY OF PRESENT ILLNESS: Jennifer Quinteros is a 56-year-old female with past medical history of rheu matoid arthritis, hypertension, COPD, type 2 diabetes, bipolar disorder, and schizophrenia who prese nts with dizziness and muscle cramps. She was recently admitted for hyponatremia. During her admis trini, her hydrochlorothiazide was discontinued and she states that she has not taken it since discha rge. She started experiencing the dizziness and full body cramps the day of admission at about 11:0 0 a.m. She states that this was the same feeling that she had before the last admission, so she deci ded to come to the ED. She also states that she has been drinking more water and urinating more nahomy n normal and also experiencing some dysuria. She denies any other new symptoms since discharge from previous admission. PAST MEDICAL HISTORY: 1. Hypertension. 2. Chronic obstructive pulmonary disease. 3. Type 2 diabetes. 4. Bipolar disorder. 5. Schizophrenia. PAST SURGICAL HISTORY: 1. Bilateral knee replacement. 2. Right shoulder replacement. 3. Hysterectomy. ALLERGIES: IODINE. MEDICATIONS: 1. Lisinopril 40 mg daily. 2. Amlodipine 5 mg p.o. daily. 3. Amitriptyline 50 mg p.o. at bedtime. 4. [place] 10/325 two p.o. b.i.d. p.r.n. 5. Gabapentin 600 mg p.o. t.i.d. 6. Folic acid 0.4 mg p.o. daily. 7. Vitamin B12 1000 mcg p.o. daily. 8. Carvedilol 25 mg p.o. b.i.d. 9. Aspirin 81 mg p.o. daily. 10. Ferrous sulfate 325 mg p.o. daily. 11. Pantoprazole 40 mg p.o. daily p.r.n. 12. Clonidine 0.1 mg p.o. t.i.d. 13. Lovastatin 20 mg p.o. at bedtime. 14. Meclizine 25 mg p.o. daily. 15. Novolin 70/30, 30 units b.i.d. SOCIAL HISTORY: The patient used to smoke 2 packs per day for 60 years, but quit smoking a year ago . She denies any alcohol or drug use. REVIEW OF SYSTEMS: Twelve point review of systems including general, eyes, ENT, respiratory, CV, GI , , skin, musculoskeletal, neuro and psych reviewed and were negative with the exception of dizzin ess and muscle cramps, dysuria and depression which is chronic. PHYSICAL EXAMINATION: VITAL SIGNS: Blood pressure 150/90, pulse 72, respiratory rate 20, T-max 98.5, pulse ox 98% on room air, current weight 87 kilograms. GENERAL: The patient is alert and oriented x4, in no acute distress, well-developed, well-nourished , and appropriately interactive. EYES: Pupils equal, round, reactive to light and accommodation. Extraocular muscles intact. Conju nctiva within normal limits. ENT: Tympanic membranes pearly baez without bulging or erythema. Nasal mucosa and oropharynx withi n normal limits. NECK: Supple, without lymphadenopathy or thyromegaly. CARDIOVASCULAR: Regular rate and rhythm. No murmurs or gallops. Radial pulses and pedal pulses pr esent and equal bilaterally. RESPIRATORY: Normal effort, no retractions. LUNGS: Clear to auscultation bilaterally. SKIN: Warm and dry without cyanosis or lesions. ABDOMEN: Soft, nontender. Bowel sounds x4. No mass or distention. EXTREMITIES: Club no clubbing, cyanosis or edema. MUSCULOSKELETAL: Structure and tone within normal limits. Full range of motion. NEUROLOGIC: No focal deficits. Sensation within normal limits. Cranial nerves II-XII grossly inta ct. PSYCHIATRIC: Appropriate. LABORATORY DATA: White blood cell count 10.8, hemoglobin 11.7, hematocrit 35.3, platelets 243. Sod ium 128, potassium 4.1, chloride 96, bicarbonate 21, BUN 9, creatinine 0.8, glucose 87, calcium 9.3, total protein 7.9, albumin 4.0, AST 18, ALT 18, alkaline phosphatase 64, total bilirubin 0.4, CK 85 , CK-MB 1.1, troponin less than 0.01. ASSESSMENT AND PLAN: A 56-year-old female with symptomatic hyponatremia. 1. Symptomatic hyponatremia. Hydrochlorothiazide was discontinued after last admission which was t hought to be the cause of the decreased sodium. Sodium today is 128. Recheck BMP in the morning. Continue home meds, continue to monitor sodium. Consider consulting Nephrology in the morning. [place] ck UDS, free T4, T3 and TSH. Check urine sodium osmolality and urine nitrogen. 2. Anemia. MCV of 91.7, hemoglobin of 11.7. The patient is asymptomatic. This seems to be a manager radio tahir anemia. Continue to monitor. Anemia could likely be worked up outpatient. 3. Hypertension. Continue home medications. 4. Chronic obstructive pulmonary disease, stable, not currently having any increased need for O2. 5. Type 2 diabetes. Restart home 70/30 and metformin. Accu-Cheks a.c. and at bedtime, consistent carbohydrate diet. 6. Bipolar and schizophrenia, stable. Continue home medications. 7. Prophylaxis. Lovenox. DISPOSITION AND LENGTH OF HOSPITAL STAY: 1-2 days. Symptomatic medications will be provided. History and physical exam as well as management discussed with Dr. Chavez.
--- NOTE | 2017-03-11 07:25 | HP ---
DATE OF ADMISSION: 03/10/2017 CHIEF COMPLAINT: Dizziness. HISTORY OF PRESENT ILLNESS: This is a 56-year-old female with multiple comorbidities, who presents with dizziness and unsteadiness that started around 1:00 this afternoon. She has recent admission for hyponatremia, which was felt to be due to hydrochlorothiazide and after giving saline and medications discontinued, her sodium was up to 136, upon which time she was discharged. She was normal until today when she had recurrence of symptoms including the dizziness and cramping and decided to come back in. In the ED, she was found to again be hyponatremic of 128, admitted to our service and bounce back. Other than that, she has stable musculoskeletal complaints from her multiple joint replacements. REVIEW OF SYSTEMS: Other systems reviewed and are negative. 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 PAST SURGICAL HISTORY: Bilateral knees, bilateral hips, and right shoulder repair, hysterectomy. HOME MEDICATIONS: Include amlodipine, amitriptyline, [place], gabapentin, folic acid, ferrous sulfate, vitamin B12, Coreg, aspirin, Novolin, meclizine, lovastatin, clonidine, pantoprazole, and lisinopril. ALLERGIES: She is allergic to IODINATED CONTRAST. SOCIAL HISTORY: History of tobacco use. Denies any history of ethanol or drug abuse. FAMILY HISTORY: Noncontributory. PHYSICAL EXAMINATION: VITAL SIGNS: Included temperature of 98.1, pulse 75, respirations 16, O2 sat 96 %, blood pressure 141/77. GENERAL: She is in no acute distress, resting comfortably in bed. She has eaten some tonight. HEENT: No icterus or injection. Pupils are equal, round, and reactive to light. Moist mucous membranes with poor dentition. Normal pinna. Patent nares. Unable to assess her left TM, was not able to find an otoscope at this time. CARDIOVASCULAR: Regular rate and rhythm. She has a 3/6 systolic ejection murmur that cannot radiate throughout the precordium, heard loudest in the right upper sternal border. LUNGS: Clear to auscultation bilaterally without wheeze, rales, rhonchi or increased work of breathing. ABDOMEN: Bowel sounds positive. Nontender to palpation. Unable to palpate any organomegaly limited by habitus. : Deferred. MUSCULOSKELETAL: No deformity or contracture seen. SKIN: No obvious skin lesion or wound. NEUROLOGIC: Cranial nerves II-XII intact and symmetric. Motor 5/5 throughout. Sensation intact to light touch in the upper and lower extremities. PSYCHIATRIC: Mood and affect are appropriate for current medical condition. Alert and oriented x3. No AVH, SIHI, or paranoid ideation. LABORATORY DATA: Significant for white count 2.8, hemoglobin 11.7, MCV 91, platelets 243. Sodium 128, potassium 4.1, chloride 96, bicarbonate 21, anion gap 15, BUN 9, creatinine 0.8. Last A1c in 2015, it was 6.1. Last TFTs included TSH of 0.0091, free T3 of 4.61, free T4 of 1.14. Fibrous effect to that was consistent with F2 to F4. IMAGING: None this admission. She does not have assessment of her liver in the past. ASSESSMENT AND PLAN: 1. Hyponatremia. I think this is multifactorial and hydrochlorothiazide easily could have been contributing, but she has a history of what sounds like hypothyroidism, which has not been rechecked and she had negative receptor antibodies, but she also has a history of cirrhosis by noninvasive testing. We will go ahead and order right upper quadrant ultrasound as this could be contributing to her hyponatremia. In light of her current status, we will hold fluids and continue to monitor. Repeat urine electrolytes, urine osm. Also could be a component of course of SIADH related to her amitriptyline or other medications. Rare case reports of lisinopril causing hyponatremia as well. 2. Heart murmur, I believe this is new. We will go ahead and order a TTE to evaluate as this could be contributing the cause of her hyponatremia, even though she appears to be clinically relatively euvolemic. 3. Anemia. This is stable. We will go ahead and send a workup for this. 4. Hyperglycemia. Repeat A1c and a lipid panel in the morning. Repeat a tox screen. Recheck sodium in 4-6 hours and we will discuss with Nephrology in the morning. 5. Deep venous thrombosis prophylaxis with Lovenox. 6. Gastrointestinal prophylaxis with diet. MTDD
--- NOTE | 2017-03-11 08:52 | ULT ---
RIGHT UPPER QUADRANT ULTRASOUND: Date: 03-11-17 Comparison: None. History: Hepatitis. Technique: Multiplanar grayscale sonographic imaging of the right upper quadrant obtained. FINDINGS: Imaged pancreatic parenchyma is unremarkable. The distal body and tail obscured by bowel gas. No focal liver lesion or intrahepatic biliary dilatation is seen. The CBD measures 2 mm, within norm al limits. No gallbladder wall thickening or pericholecystic fluid. No gallstones are seen. The sonographic reports a negative Mcdonald's sign. Left kidney measures 9 cm in craniocaudal dimension and demonstrates no evidence for stone, hydronep hrosis or mass lesion. IMPRESSION: Unremarkable right upper quadrant ultrasound. POS: [facility]
[2017-03-11] MEDS: Lisinopril 20 MG TAB PO SCH (09:01)
[2017-03-11] MEDS: Gabapentin 300 MG CAP PO SCH ×3 (09:01→20:40)
[2017-03-11] MEDS: Cyanocobalamin (Vitamin B-12) 1,000 MCG TAB PO SCH (09:01)
[2017-03-11] MEDS: Aspirin 81 mg Enteric Coated Tablet PO SCH (09:01)
[2017-03-11] MEDS: Carvedilol 25 MG TAB PO SCH ×2 (09:02→20:40)
[2017-03-11] MEDS: Ferrous Sulfate 325 MG TAB PO SCH (09:02)
[2017-03-11] MEDS: Amlodipine 5 MG TAB PO SCH (09:02)
[2017-03-11] MEDS: cloNIDine 0.1 MG TAB PO SCH ×3 (09:03→20:40)
--- NOTE | 2017-03-11 09:07 | PDOC.FM ---
- Subjective Subjective: No acute events overnight. Pt reports her dizziness and cramps have improved. Denies swelling, cp, sob, nvdc. Reports her fluid intake has been approx 7-8 bottles of water daily. H/o of hypothyroid, but tsh only slightly elevated compared to last visit. - Objective Vital Signs & Weight: Vital Signs (12 hours) Temp Pulse Resp BP BP Pulse Ox 03/11/17 09:03 170/77 H 03/11/17 09:02 85 170/77 H 03/11/17 09:01 170/77 H 03/11/17 04:00 98.5 F 85 16 164/78 H 96 Weight Weight 85.411 kg I&O: 03/10/17 03/11/17 03/12/17 06:59 06:59 06:59 Intake Total 390 Output Total 1350 Balance -960 Result Diagrams: 03/11/17 04:42 03/11/17 04:42 <Rafy Tolliver - Last Filed: 03/11/17 09:06> - Objective Vital Signs & Weight: Vital Signs (12 hours) Temp Pulse Resp BP BP BP BP 03/11/17 10:32 98.8 F 90 17 148/78 H 169/113 H 03/11/17 09:03 170/77 H 03/11/17 09:02 85 170/77 H 03/11/17 09:01 170/77 H 03/11/17 08:00 98.5 F 85 18 03/11/17 04:00 98.5 F 85 16 164/78 H BP Pulse Ox 03/11/17 10:32 125/71 96 03/11/17 09:03 03/11/17 09:02 03/11/17 09:01 03/11/17 08:00 03/11/17 04:00 96 Weight Weight 85.411 kg I&O: 03/10/17 03/11/17 03/12/17 06:59 06:59 06:59 Intake Total 390 Output Total 1350 Balance -960 Result Diagrams: 03/11/17 04:42 03/11/17 04:42 <Bakari Almazan - Last Filed: 03/11/17 11:54> Phys Exam - Physical Examination Constitutional: NAD HEENT: PERRLA, moist MMs, sclera anicteric, oral pharynx no lesions Neck: no nodes, no JVD Respiratory: no wheezing, no rales, no rhonchi, clear to auscultation bilateral Cardiovascular: RRR, no rub 1-2/6 NED Gastrointestinal: soft, non-tender, no distention, positive bowel sounds Musculoskeletal: no edema, pulses present Neurological: non-focal, normal sensation, moves all 4 limbs Psychiatric: normal affect Skin: no rash, normal turgor, cap refill <2 seconds <Rafy Tolliver - Last Filed: 03/11/17 09:06> Dx/Plan (1) Hyponatremia Code(s): E87.1 - HYPO-OSMOLALITY AND HYPONATREMIA Status: Acute (2) Diabetes mellitus Code(s): E11.9 - TYPE 2 DIABETES MELLITUS WITHOUT COMPLICATIONS Status: Chronic Qualifiers: Diabetes mellitus type: type 2 Diabetes mellitus complication status: with unspecified complications Diabetes mellitus manager terminal insulin use: with prison use Qualified Code(s): E11.8 - Type 2 diabetes mellitus with unspecified complications; Z79.4 - computer terminal operator (current) use of insulin; Z79.4 - computer terminal operator ( current) use of insulin; Z79.4 - computer terminal operator (current) use of insulin; Z79.4 - [facility] (current) use of insulin (3) Hyperlipidemia Code(s): E78.5 - HYPERLIPIDEMIA, UNSPECIFIED Status: Chronic Qualifiers: Hyperlipidemia type: unspecified Qualified Code(s): E78.5 - Hyperlipidemia , unspecified (4) Hypertension Code(s): I10 - ESSENTIAL (PRIMARY) HYPERTENSION Status: Chronic Qualifiers: Hypertension type: essential hypertension Qualified Code(s): I10 - Essential (primary) hypertension (5) Macrocytic anemia Code(s): D53.9 - NUTRITIONAL ANEMIA, UNSPECIFIED Status: Chronic - Plan Plan: pts sodium increased with IVF, recheck bmp q4-6 hrs will check orthostatics possibly hypovolemic hyponatremia; serum osmoles 258, urine osms 77, urine sodium 22 beer potomania, tea toast diet or mild hyovolemic hyponatremia remain possibility tsh mildly elevated, improved from prior visit pt has ned 2/6 tte ordered, results pending anemia, normocytic iron studies normal continue home medications for DMII, htn, hld apparent h/o of cirrhosis, no evidence of acute disease on RUQ US <Rafy Tolliver - Last Filed: 03/11/17 09:06> Attending Addendum - Attending Addendum I personally evaluated the patient and discussed the management with Dr. Tolliver. I agree with the History, Examination, Assessment and Plan documented above with any addition or exceptions noted below. Patients symptoms resolved after correction of her sodium level. It is now currently within normal range, obtained after 1 L NS infusion. She has history of medication induced hypoNa, and we will evaluate her med list thoroughly to ensure that is not continuing. Her serum and urine labs seem more consistent with polydipsia vs. potomania vs. poor dietary intake. Will mildly fluid restrict and monitor values to ensure it stays at normal range. Counselling on need to decrease free water intake if not eating much solid food throughout the day. <Bakari Almazan - Last Filed: 03/11/17 11:54>
[2017-03-11] MEDS: Folic Acid 1 MG TAB PO SCH (11:28)
[2017-03-11 16:34] LABS: Anion Gap 13 mmol/L (10-20); BUN (Urea Nitrogen) 11 mg/dL (9.8-20.1); Calc. Creatinine Clearance 72 mL/min (70-130); Calcium 9.8 mg/dL (7.8-10.44); Carbon Dioxide 25 mmol/L (22-29); Chloride 103 mmol/L (98-107); Estimated GFR-MDRD 58
[2017-03-11] MEDS ORDERED: Amitriptyline HCl 25 MG TAB PO SCH (21:00)
[2017-03-11] MEDS ORDERED: Lovastatin 20 MG TAB PO SCH (21:00)
[2017-03-12 05:34] LABS: Anion Gap 13 mmol/L (10-20); BUN (Urea Nitrogen) 21 mg/dL (9.8-20.1); Calc. Creatinine Clearance 50 mL/min (70-130); Calcium 9.3 mg/dL (7.8-10.44); Carbon Dioxide 23 mmol/L (22-29); Chloride 103 mmol/L (98-107); Estimated GFR-MDRD 38
[2017-03-12 05:57] VITALS: BMI 35.9
[2017-03-12] MEDS ORDERED: Sodium Chloride 0.9% 1,000 ML IV SCH (07:15)
[2017-03-12] MEDS: Gabapentin 300 MG CAP PO SCH ×2 (08:26→16:00)
[2017-03-12] MEDS: Folic Acid 1 MG TAB PO SCH (08:26)
[2017-03-12] MEDS: Cyanocobalamin (Vitamin B-12) 1,000 MCG TAB PO SCH (08:27)
[2017-03-12] MEDS: Ferrous Sulfate 325 MG TAB PO SCH (08:27)
[2017-03-12] MEDS: Carvedilol 25 MG TAB PO SCH (08:27)
[2017-03-12] MEDS: Aspirin 81 mg Enteric Coated Tablet PO SCH (08:28)
[2017-03-12] MEDS: Amlodipine 5 MG TAB PO SCH (08:28)
[2017-03-12] MEDS: Lisinopril 20 MG TAB PO SCH (08:28)
[2017-03-12] MEDS: cloNIDine 0.1 MG TAB PO SCH ×2 (08:28→16:01)
--- NOTE | 2017-03-12 08:42 | PDOC.FM ---
- Subjective Subjective: No acute events overnight. Pt reports she is feeling better and denies dizziness , lightheadedness, NVDC, CP, SOB. - Objective Vital Signs & Weight: Vital Signs (12 hours) Temp Pulse Resp BP BP BP Pulse Ox 03/12/17 08:28 75 140/73 03/12/17 07:39 97.6 F 75 16 94 L 03/12/17 07:00 97.6 F 75 16 140/73 94 L 03/12/17 04:42 97.7 F 59 L 20 115/64 93 L 03/12/17 00:00 98.1 F 75 20 120/65 92 L Weight Weight 86.409 kg I&O: 03/11/17 03/12/17 03/13/17 06:59 06:59 06:59 Intake Total 390 620 Output Total 1350 Balance -960 620 Result Diagrams: 03/11/17 04:42 03/12/17 04:44 <Rafy Tolliver - Last Filed: 03/12/17 08:40> - Objective Vital Signs & Weight: Vital Signs (12 hours) Temp Pulse Resp BP BP BP Pulse Ox 03/12/17 08:28 75 140/73 03/12/17 07:39 97.6 F 75 16 94 L 03/12/17 07:00 97.6 F 75 16 140/73 94 L 03/12/17 04:42 97.7 F 59 L 20 115/64 93 L Weight Weight 86.409 kg I&O: 03/11/17 03/12/17 03/13/17 06:59 06:59 06:59 Intake Total 390 620 Output Total 1350 Balance -960 620 Result Diagrams: 03/11/17 04:42 03/12/17 10:00 <Bakari Almazan - Last Filed: 03/12/17 15:30> Phys Exam - Physical Examination Constitutional: NAD HEENT: PERRLA, sclera anicteric Neck: no nodes, no JVD Respiratory: no wheezing, no rales, no rhonchi, clear to auscultation bilateral Cardiovascular: RRR, no rub 2/6 NED Gastrointestinal: soft, non-tender, no distention, positive bowel sounds Musculoskeletal: no edema, pulses present Neurological: non-focal, normal sensation <Rafy Tolliver - Last Filed: 03/12/17 08:40> Dx/Plan (1) Hyponatremia Code(s): E87.1 - HYPO-OSMOLALITY AND HYPONATREMIA Status: Acute (2) Diabetes mellitus Code(s): E11.9 - TYPE 2 DIABETES MELLITUS WITHOUT COMPLICATIONS Status: Chronic QualifierTitle: Diabetes mellitus type: type 2 Diabetes mellitus complication status: with unspecified complications Diabetes mellitus long-term insulin use: with terminal supervisor use Qualified Code(s): E11.8 - Type 2 diabetes mellitus with unspecified complications; Z79.4 - buttermaker (current) use of insulin; Z79.4 - jail (current) use of insulin; Z79.4 - jail ( current) use of insulin; Z79.4 - jail (current) use of insulin (3) Hyperlipidemia Code(s): E78.5 - HYPERLIPIDEMIA, UNSPECIFIED Status: Chronic QualifierTitle: Hyperlipidemia type: unspecified Qualified Code(s): E78.5 - Hyperlipidemia, unspecified (4) Hypertension Code(s): I10 - ESSENTIAL (PRIMARY) HYPERTENSION Status: Chronic QualifierTitle: Hypertension type: essential hypertension Qualified Code( s): I10 - Essential (primary) hypertension (5) Macrocytic anemia Code(s): D53.9 - NUTRITIONAL ANEMIA, UNSPECIFIED Status: Chronic - Plan Plan: hyponatremia improved, slight increase in bun creatinine will start gentle IVF hydration with NS @ 75mls/hr VSS urine Na <40 and urine osms <100, likely mild hypovolemia with elevated bun/cr, vs decreased po salt intake latest Na 134 repeat bmp, dc today <Rafy Tolliver - Last Filed: 03/12/17 08:40> Attending Addendum - Attending Addendum I personally evaluated the patient and discussed the management with Dr. Tolliver. I agree with the History, Examination, Assessment and Plan documented above with any addition or exceptions noted below. Patient back to baseline and reports no symptoms. Her Na level has corrected nicely with NS infusion as well as decrease in free water intake. It is likely her issue was caused by combination of decreased dietary intake, and mild polydipsia. She has been counselled on eating regularly and decreasing her water intake specifically. Ok to discharge home, will need outpatient follow up on Na levels in 1-2 weeks. <Bakari Almazan - Last Filed: 03/12/17 15:30>
[2017-03-12 11:54] LABS: Anion Gap 12 mmol/L (10-20); BUN (Urea Nitrogen) 20 mg/dL (9.8-20.1); Calc. Creatinine Clearance 62 mL/min (70-130); Calcium 9.1 mg/dL (7.8-10.44); Carbon Dioxide 25 mmol/L (22-29); Chloride 102 mmol/L (98-107); Estimated GFR-MDRD 48
[2017-03-12 14:25] LABS: Folate,Hemolysate 584.6 ng/mL (Not Estab.); Hematocrit 32.9 % (34.0-46.6); RBC Folate Test Component 1777 ng/mL (>498)
[2017-03-12 16:01] VITALS: BP 99/57
[2017-03-12 16:11] VITALS: TEMP 98.3
[2017-03-12] MEDS ORDERED: Clopidogrel Bisulfate 75 MG TAB ONE (16:36)
--- NOTE | 2017-03-14 10:27 | DIS-2 ---
DATE OF ADMISSION: 03/10/2017 DATE OF DISCHARGE: 03/12/2017 LOCATION: [facility] in [place], [place]. DATE OF DISCHARGE: 03/12/2017 COSIGNER: Bakari Almazan M.D. ADMITTING ATTENDING: Salvador Chavez MD DISCHARGE ATTENDING: Bakari Almazan MD RESIDENT: Rafy Tolliver DO CONSULTS: None. PROCEDURES: Abdominal ultrasound on 03/11/2017 showed unremarkable right upper quadrant ultrasound. PRIMARY DIAGNOSIS: Hyponatremia. SECONDARY DIAGNOSES: 1. Hypertension. 2. COPD. 3. Type 2 diabetes. 4. Bipolar disorder. 5. Schizophrenia. DISCHARGE MEDICATIONS: 1. Coreg 25 mg b.i.d. 2. Aspirin 81 mg daily. 3. Amlodipine 5 mg daily. 4. Amitriptyline 50 mg nightly. 5. Clonidine 0.1 mg t.i.d. 6. Protonix 40 mg daily. 7. Meclizine 25 mg daily. 8. Lovastatin 20 mg nightly. 9. Lisinopril 40 mg daily. 10. Insulin Novolin 70/30, 30 units subcu b.i.d. 11. [place] 10/325 two tabs each p.o. b.i.d. 12. Gabapentin 600 mg t.i.d. 13. Folic acid 0.4 mg p.o. daily. 14. Ferrous sulfate 325 mg p.o. daily. 15. Vitamin B12 1000 mcg daily. DISCONTINUED MEDICATIONS: None. HISTORY OF PRESENT ILLNESS/HOSPITAL COURSE: The patient is a 56-year-old female with past medical history of rheumatoid arthritis, hypertension, COPD, type 2 diabetes, and schizophrenia, who presented with dizziness and muscle cramps. She was recently admitted for hyponatremia and after the last admission , her hydrochlorothiazide was discontinued, said she has not been taking it since. She stated that the dizziness and full body cramps started the day prior to admission and that she had the same feeling the last time she was admitted for hyponatremia. She also states that she has been drinking more water and urinating more than normal, also experiencing some dysuria. The patient was placed on fluid restriction. I's and O's were monitored and her sodium continued to improve. She was also given normal saline infusion in addition to the decreased free water intake. It was thought that her issue was caused by a a combination of decreased dietary intake as well as mild polydipsia. She was counseled on eating a regular diet or more consistent regular diet and additionally to decrease her free water intake. Her sodium on admission was 128, which subsequently corrected after the previously stated interventions to 136 and stayed between 134-136. Discharge sodium level was 135. The patient's urine osmolality was 77, urine sodium was 22, urine urea nitrogen was 71. Creatinine on admission was 0.80 and creatinine on discharge was 1.27. Serum osmolality on admission was 263. DISPOSITION: 1. The patient left the hospital in stable condition. 2. Location: The patient was discharged to home. 3. Diet: The patient was placed on a fluid restriction diet. 4. Activity: Ad sivakumar. 4. Followup: Follow up in 1-2 weeks with primary care physician with a repeat basic metabolic profile to be drawn to recheck sodium. CHUCK
--- NOTE | 2017-04-18 16:05 | EKG ---
Test Reason : DIZZINESS Blood Pressure : / mmHG Vent. Rate : 068 BPM Atrial Rate : 068 BPM P-R Int : 168 ms QRS Dur : 086 ms QT Int : 400 ms P-R-T Axes : 061 036 049 degrees QTc Int : 425 ms Normal sinus rhythm Nonspecific ST changes Normal ECG Confirmed by LILLIE GORE MD ([id number]), electronic news gathering editor CYNDI VERMA ([id number]) on 04/18/2017 4:05:05 PM Referred By: Confirmed By:LILLIE GORE MD
== END 2017-03-12 17:31 | disposition home or self-care (01) | DRG 641 ==
LOC: ERS 15:17 → 2NO 19:10
PROVIDERS: ADMIT Emergency Medicine; ATTEND Emergency Medicine
DX: E87.1 Hypo-osmolality and hyponatremia (principal); K74.60 Unspecified cirrhosis of liver; E11.65 Type 2 diabetes mellitus with hyperglycemia; I10 Essential (primary) hypertension; D53.9 Nutritional anemia, unspecified; E03.9 Hypothyroidism, unspecified; E78.5 Hyperlipidemia, unspecified; E86.1 Hypovolemia; J44.9 Chronic obstructive pulmonary disease, unspecified; E66.9 Obesity, unspecified; Z68.35 Body mass index [BMI] 35.0-35.9, adult; F31.9 Bipolar disorder, unspecified; F20.9 Schizophrenia, unspecified; Z87.891 Personal history of nicotine dependence; R01.1 Cardiac murmur, unspecified; M06.9 Rheumatoid arthritis, unspecified
CPT/HCPCS: 36415; 36416; 76705; 80048; 80053; 80306; 81001; 82553; 82607; 82728; 82747; 83540; 83550; 83930; 83935; 84300; 84439; 84443; 84481; 84484; 84540; 85025; 85046; 93005; A4216; J1815

== ENCOUNTER 2017-04-30 19:59 | Emergency (ER) | payer OTHER, SELFPAY ==
[2017-04-30 22:34] LABS: #Basophils 0.1 thou/uL (0.0-0.2); #Eosinphils 0.3 thou/uL (0.0-0.7); #Monocytes 1.1 thou/uL (0.11-0.59); #Neutrophils 7.8 thou/uL (1.40-6.50); %Basophils 0.5 % (0.0-1.0); %Eosinophils 2.5 % (0.0-10.0); %Lymphocytes 24.5 % (21.0-51.0); %Monocytes 9.2 % (0.0-10.0); %Neutrophils 63.3 % (42.0-75.0); Hemoglobin 11.7 g/dL (12.0-16.0); Mean Corpuscular HGB CONC 33.1 g/dL (32.0-36.0); Mean Corpuscular Hemoglobin 30.5 pg (27.0-31.0); Mean Corpuscular Volume 91.9 fl (81.0-99.0); Mean Platelet Volume 7.2 fL (7.4-10.4); Platelet Count 220 thou/uL (130-400); RBC Distribution Width 12.3 % (11.5-14.5); Red Blood Cell (RBC) Count 3.83 mill/uL (4.20-5.40); White Blood Cell (WBC) Count 12.4 thou/uL (4.8-10.8)
[2017-04-30 22:55] LABS: ALT (SGPT) 15 U/L (8-55); AST (SGOT) 13 U/L (5-34); Albumin 3.9 g/dL (3.5-5.0); Alkaline Phosphatase 67 U/L (40-150); Anion Gap 12 mmol/L (10-20); BUN (Urea Nitrogen) 11 mg/dL (9.8-20.1); Bilirubin, Total 0.2 mg/dL (0.2-1.2); Calc. Creatinine Clearance 0 mL/min (70-130); Calcium 9.8 mg/dL (7.8-10.44); Carbon Dioxide 26 mmol/L (22-29); Chloride 102 mmol/L (98-107); Estimated GFR-MDRD 78; Globulin 3.6 g/dL (2.4-3.5); Glucose 106 mg/dL (70-105); Potassium 3.8 mmol/L (3.5-5.1); Protein, Total 7.5 g/dL (6.0-8.3); Sodium 136 mmol/L (136-145)
[2017-04-30 22:59] LABS: CKMB 1.2 ng/mL (0-6.6); Troponin I Less than 0.010 ng/mL (< 0.028)
== END 2017-04-30 23:11 | disposition home or self-care (01) ==
LOC: ERS 19:59
DX: I10 Essential (primary) hypertension (principal); E78.5 Hyperlipidemia, unspecified; Z86.73 Personal history of transient ischemic attack (TIA), and cerebral infarction without residual deficits; J44.9 Chronic obstructive pulmonary disease, unspecified; J45.909 Unspecified asthma, uncomplicated; Z87.891 Personal history of nicotine dependence; F31.9 Bipolar disorder, unspecified; E11.9 Type 2 diabetes mellitus without complications; F90.9 Attention-deficit hyperactivity disorder, unspecified type; Z79.4 Long term (current) use of insulin; F25.9 Schizoaffective disorder, unspecified
CPT/HCPCS: 36415; 80053; 82553; 84484; 85025; 93005

== ENCOUNTER 2017-11-18 09:29 | Emergency (ER) | payer SELFPAY ==
[2017-11-18 10:32] LABS: #Eosinphils 0.1 thou/uL (0.0-0.7); #Lymphocytes 1.4 thou/uL (1.20-3.40); #Monocytes 0.6 thou/uL (0.11-0.59); #Neutrophils 5.2 thou/uL (1.40-6.50); %Basophils 0.6 % (0.0-1.0); %Eosinophils 1.2 % (0.0-10.0); %Lymphocytes 18.7 % (21.0-51.0); %Monocytes 8.4 % (0.0-10.0); %Neutrophils 71.1 % (42.0-75.0); Hemoglobin 13.6 g/dL (12.0-16.0); Mean Corpuscular HGB CONC 34.2 g/dL (32.0-36.0); Mean Corpuscular Volume 90.7 fL (78.0-98.0); Mean Platelet Volume 7.2 fL (7.4-10.4); Platelet Count 205 thou/uL (130-400); RBC Distribution Width 12.1 % (11.5-14.5); White Blood Cell (WBC) Count 7.4 thou/uL (4.8-10.8)
[2017-11-18 10:43] LABS: BHCG - Serum Negative (NEGATIVE); Pregs Control Background? CLEAR/WHITE (CLR/WHITE); Pregs Control Bar Appear? YES (CONTROL BAR)
[2017-11-18 10:52] LABS: ALT (SGPT) 17 U/L (8-55); AST (SGOT) 13 U/L (5-34); Albumin 4.4 g/dL (3.5-5.0); Alkaline Phosphatase 73 U/L (40-150); Anion Gap 12 mmol/L (10-20); BUN (Urea Nitrogen) 17 mg/dL (9.8-20.1); Bilirubin, Total 0.2 mg/dL (0.2-1.2); CK (CPK) 67 U/L (29-168); Calc. Creatinine Clearance 0 mL/min (70-130); Calcium 9.5 mg/dL (7.8-10.44); Carbon Dioxide 21 mmol/L (22-29); Chloride 108 mmol/L (98-107); Estimated GFR-MDRD 66; Globulin 3.8 g/dL (2.4-3.5); Glucose 75 mg/dL (70-105); Potassium 4.2 mmol/L (3.5-5.1); Protein, Total 8.2 g/dL (6.0-8.3); Sodium 137 mmol/L (136-145)
--- NOTE | 2017-11-18 12:14 | RAD ---
PORTABLE AP CHEST X-RAY: 11/18/2017 HISTORY: Weakness. Patient found unresponsive by family. Snoring. Diaphragmatic. COMPARISON: 02/26/2017 FINDINGS: The cardiac silhouette and pulmonary vasculature are within normal limits. Increased density at the left lung base is likely related to overlying soft tissue density. The lungs are otherwise clear. V ascular calcifications are seen in the thoracic aorta. A right humeral prosthesis is again noted in place. IMPRESSION: No acute cardiopulmonary process. POS: ELIZABETH
== END 2017-11-18 14:06 | disposition home or self-care (01) ==
LOC: ERS 09:29
DX: E11.649 Type 2 diabetes mellitus with hypoglycemia without coma (principal); E78.5 Hyperlipidemia, unspecified; I10 Essential (primary) hypertension; Z86.73 Personal history of transient ischemic attack (TIA), and cerebral infarction without residual deficits; J44.9 Chronic obstructive pulmonary disease, unspecified; F31.9 Bipolar disorder, unspecified; F25.9 Schizoaffective disorder, unspecified; Z87.891 Personal history of nicotine dependence; Z79.4 Long term (current) use of insulin
CPT/HCPCS: 36415; 36416; 71045; 80053; 82550; 83605; 84703; 85025

== ENCOUNTER 2018-02-16 13:06 | Outpatient (CLI) | payer OTHER ==
--- NOTE | 2018-02-16 20:16 | HP ---
DATE OF SERVICE: 02/16/2018 HISTORY OF PRESENT ILLNESS: Ms. Jennifer Quinteros is a very pleasant 57-year-old who presents to the [facility] for evaluation of an ulceration of the plantar surface of the right medial great toe. The patient states that the ulceration has been present for over 6 weeks. She states that she was seen b y Dr. Craig on 02/09/2018 at which time the ulceration was debrided. She states that at the time o f her visit with Dr. Craig she was referred to the Wound Center for further evaluation and treatmen t. PAST MEDICAL HISTORY: 1. Rheumatoid arthritis. 2. TIA x2. 3. Hypertension. 4. Gastroesophageal reflux disease. 5. Asthma. 6. Diabetes mellitus. 7. Fibromyalgia. 8. History of hepatitis C. 9. Osteoporosis. 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 11. Anemia. PAST SURGICAL HISTORY: 1. Right total knee arthroplasty. 2. x2. 3. Left total hip replacement. 4. PRICE/BSO. 5. Right total hip replacement. 6. Left open cubital tunnel release. 7. Right shoulder surgery. 8. Excision of left postauricular lipoma. 9. Left total knee arthroplasty. 10. Left foot surgery. MEDICATIONS: The patient does not have a list of her medications with her today. She states that he r medications; however, include lisinopril, simvastatin, NovoLog 70/30, metformin, multivitamin and i robb. ALLERGIES: IODINATED CONTRAST. SOCIAL HISTORY: Significant for tobacco use of 2 packs of cigarettes per day beginning at age 14. T he patient states that she stopped smoking 2 years ago. The patient also admits to the heavy consump tion of alcohol in the past. She states that she now only consumes alcohol on an occasional basis. FAMILY HISTORY: Significant for diabetes mellitus. The patient's mother was diagnosed with diabetes mellitus. Family history is also significant for coronary artery disease. The patient's mother and father were both diagnosed with coronary artery disease. PHYSICAL EXAMINATION: VITAL SIGNS: Temperature 97.9, pulse 77, respirations 20, blood pressure 122/80. Accu-Chek 144. GENERAL: A 57-year-old female sitting on chair in examination room in no acute distress. HEENT: Normocephalic, atraumatic. NECK: No nuchal rigidity. CHEST: Clear to auscultation. CARDIAC: Regular rate and rhythm. ABDOMEN: Soft. EXTREMITIES: An ulceration of the plantar surface of the right great toe over the medial toe is pres ent. The dimensions of the wound are approximately 1.2 x 1.0 cm. No purulent drainage is associated with the wound. No erythema of the skin surrounding the wound is present. No maceration of the ski n of the periwound is noted. A dorsalis pedis pulse or a posterior tibial pulse is not palpable on t he right. No significant edema of the right foot or right great toe is present on exam today. ASSESSMENT AND PLAN: 1. Ulceration of plantar surface of right great toe over the medial toe as described above. Dressin g changes of Medihoney, 4 x 4s and Coban will be initiated today. These dressing changes are to be p erformed on a daily basis after cleansing and irrigation. The patient will be performing her own silke ssing changes. No antibiotics will be prescribed today based upon the appearance of the wound. I wi ll see Ms. Quinteros again in two weeks. 2. Rheumatoid arthritis. 3. TIA x2. 4. Hypertension. 5. Gastroesophageal reflux disease. 6. Asthma. 7. Diabetes mellitus. The patient's Accu-Chek in clinic today is 144. The patient has been told th at for optimal wound healing, her blood glucoses should remain below 150. 8. Fibromyalgia. 9. History of hepatitis C. The patient states that she completed treatment for hepatitis C 5-6 year s ago. 10. Osteoporosis. 11. COPD/emphysema. 12. Anemia.
== END 2018-02-16 13:07 | disposition home or self-care (01) ==
LOC: WCC 13:06
PROVIDERS: ATTEND Family Medicine
DX: E11.621 Type 2 diabetes mellitus with foot ulcer (principal); L97.519 Non-pressure chronic ulcer of other part of right foot with unspecified severity; J45.909 Unspecified asthma, uncomplicated; K21.9 Gastro-esophageal reflux disease without esophagitis; I10 Essential (primary) hypertension; M06.9 Rheumatoid arthritis, unspecified; M79.7 Fibromyalgia; M81.0 Age-related osteoporosis without current pathological fracture; D64.9 Anemia, unspecified; J43.9 Emphysema, unspecified; Z98.890 Other specified postprocedural states; Z96.643 Presence of artificial hip joint, bilateral; Z79.4 Long term (current) use of insulin; Z79.899 Other long term (current) drug therapy; Z87.891 Personal history of nicotine dependence

== ENCOUNTER 2018-02-26 14:21 | Outpatient (CLI) | payer OTHER ==
[~2018-02-26 14:21] MED LIST: Sodium Chloride 0.9% 15 ML NEB ONE
--- NOTE | 2018-02-26 17:18 | PRG ---
DATE OF SERVICE: 02/26/2018 SUBJECTIVE: Ms. Jennifer Quinteros is a very pleasant 57-year-old who presents to the Wound Center for ev aluation of an ulceration of the plantar surface of the right medial great toe. [facility], the patient stated that the ulceration had been pr esent for over 6 weeks. She stated that she had been seen by Dr. Craig on 02/09/2018, at which vance e the ulceration was debrided. She stated that at the time of her visit with Dr. Craig, she was re ferred to the Wound Center for further evaluation and treatment. After being seen in the Wound [facility], dressing changes of Medihoney were initiated. The patient states that she was seen at [facility] and placed on p.o. antibiotics for an infectious process associated with her wound. OBJECTIVE: VITAL SIGNS: Pulse 73, respirations 19, blood pressure 135/64. EXTREMITIES: The ulceration of the plantar surface of the right great toe over the medial toe has in creased in its dimensions since the patient's last visit. The dimensions today are approximately 1.5 x 1.5 cm. The dimensions of the wound at the time of the patient's visit on 02/16/2018 were approxi mately 1.2 x 1.0 cm. No purulent drainage is associated with the wound. No erythema of the skin ronna rounding the wound is present. No maceration of the skin of the periwound is noted. A dorsalis pedi s pulse or posterior tibial pulse is not palpable on the right. No significant edema of the right fo ot or right great toe is present on exam today. ASSESSMENT AND PLAN: 1. Ulceration of plantar surface of right great toe over the medial toe as described above. Dressin g changes of Medihoney, 4 x 4s and Coban will be continued on a daily basis after cleansing and irrig ation. The patient will continue to perform her own dressing changes. I will see Ms. Quinteros again i n two weeks. 2. Rheumatoid arthritis. 3. Transient ischemic attack x2. 4. Hypertension. 5. Gastroesophageal reflux disease. 6. Asthma. 7. Diabetes mellitus. Accu-Cheks will be obtained at the time of the patient's clinic visits. The patient has been reminded that for optimal wound healing, her blood glucoses should remain below 150. 8. Fibromyalgia. 9. History of hepatitis C. The patient stated that she completed treatment for hepatitis C 5-6 year s ago. 10. Osteoporosis. 11. Chronic obstructive pulmonary disease/emphysema. 12. Anemia.
== END 2018-02-26 14:22 | disposition home or self-care (01) ==
LOC: WCC 14:21
PROVIDERS: ATTEND Family Medicine
DX: E11.621 Type 2 diabetes mellitus with foot ulcer (principal); L97.419 Non-pressure chronic ulcer of right heel and midfoot with unspecified severity; M06.9 Rheumatoid arthritis, unspecified; I10 Essential (primary) hypertension; J45.909 Unspecified asthma, uncomplicated; K21.9 Gastro-esophageal reflux disease without esophagitis; M79.7 Fibromyalgia; G45.9 Transient cerebral ischemic attack, unspecified; K64.9 Unspecified hemorrhoids; M19.90 Unspecified osteoarthritis, unspecified site; J44.9 Chronic obstructive pulmonary disease, unspecified; Z86.19 Personal history of other infectious and parasitic diseases
CPT/HCPCS: 97602; A4218

== ENCOUNTER 2018-03-12 14:23 | Outpatient (CLI) | payer OTHER ==
--- NOTE | 2018-03-12 16:44 | PRG ---
DATE OF SERVICE 03/12/2018 HISTORY: Ms. Jennifer Quinteros is a very pleasant 57-year-old who presents to the Wound Center for evalu ation of an ulceration of the plantar surface of the right medial great toe. At the time of the jyothi ent's initial presentation to the Wound Center, the patient stated that the ulceration had been prese nt for over 6 weeks. She stated that she has been seen by Dr. Craig on 02/09/2018, at which time t he ulceration was debrided. She stated that at the time of her visit with Dr. Craig, she was refer red to the Wound Center for further evaluation and treatment. After being seen in the Wound Center, dressing changes with Troy were initiated. The patient previously stated that she was seen at [facility] and placed on p.o. antibiotics for an infectious process associated with her wound. PHYSICAL EXAMINATION: VITAL SIGNS: Temperature 97.6, pulse 88, respirations 17, blood pressure 142/67. Accu-Chek 126. EXTREMITIES: The ulceration of the plantar surface of the right great toe over the medial toe measur es approximately 1.2 x 1.1 cm. The dimensions of the wound at the time of the patient's visit on 04/2017 were approximately 1.5 x 1.5 cm. Granulation tissue is present within the wound margins. No purulent drainage is associated with the wound. No erythema of the skin surrounding the wound is pr esent. No maceration of the skin of the periwound is noted. No significant edema of the right foot or great toe is present on exam today. ASSESSMENT AND PLAN: 1. Ulceration of plantar surface of right great toe over the medial toe as described above. Dressin g changes of Medihoney, gauze, and Coban will be continued on a daily basis after cleansing and irrig ation. The patient will continue to perform her own dressing changes. I will see Ms. Quinteros again i n two weeks. 2. Rheumatoid arthritis. 3. Transient ischemic attack x2. 4. Hypertension. 5. Gastroesophageal reflux disease. 6. Asthma. 7. Diabetes mellitus. The patient's Accu-Chek in clinic today is 126. The patient has been reminde d that for optimal wound healing, her blood glucoses should remain below 150. 8. Fibromyalgia. 9. History of hepatitis C. The patient stated that she completed treatment for hepatitis C 5-6 year s ago. 10. Osteoporosis. 11. Chronic obstructive pulmonary disease/emphysema. 12. Anemia.
[2018-03-12] MEDS ORDERED: Sodium Chloride 0.9% 15 ML NEB ONE (18:00)
== END 2018-03-12 14:24 | disposition home or self-care (01) ==
LOC: WCC 14:23
PROVIDERS: ATTEND Family Medicine
DX: E11.621 Type 2 diabetes mellitus with foot ulcer (principal); L97.519 Non-pressure chronic ulcer of other part of right foot with unspecified severity; M06.9 Rheumatoid arthritis, unspecified; G45.9 Transient cerebral ischemic attack, unspecified; I10 Essential (primary) hypertension; J45.909 Unspecified asthma, uncomplicated; K21.9 Gastro-esophageal reflux disease without esophagitis; M79.7 Fibromyalgia; M81.0 Age-related osteoporosis without current pathological fracture; J43.9 Emphysema, unspecified; D64.9 Anemia, unspecified; Z86.19 Personal history of other infectious and parasitic diseases
CPT/HCPCS: 97602; A4218

== ENCOUNTER 2018-03-26 15:01 | Outpatient (CLI) | payer OTHER ==
--- NOTE | 2018-03-26 19:56 | PRG ---
DATE OF SERVICE: 03/26/2018 HISTORY: Ms. Jennifer Quinteros is a very pleasant 57-year-old, who presents to the Wound Center for evaluation of an ulceration of the plantar surface of the right medial great toe. At the time of the patient's initial presentation to the Wound Center, the patient stated that the ulceration had been present for over 6 weeks. She stated that she had been seen by Dr. Craig on 02/09/2018. At which time, the ulceration was debrided. She stated that at the time of her visit with Dr. Craig, she was referred to the Wound Center for further evaluation and treatment. After being seen in the Wound Center, dressing changes with Medihoeduard were initiated. The patient previously stated that she was seen at [facility] and placed on p.o. antibiotics for an infectious process associated with her wound. PHYSICAL EXAMINATION: VITAL SIGNS: Temperature 98.1, pulse 83, respirations 16, blood pressure 138/71. Accu-Chek 201. EXTREMITIES: The ulceration of the plantar surface of the right great toe over the medial toe measures approximately 1.0 x 0.6 cm. The dimensions of the wound at the time of the patient's visit on 03/12/2018 were approximately 1.2 x 1.1 cm. Granulation tissue is present within the wound margins. No purulent drainage is associated with the wound. No erythema of the skin surrounding the wound is present. No maceration of the skin of the periwound is noted. No significant edema of the right foot or great toe is present on exam today. ASSESSMENT AND PLAN: 1. Ulceration of plantar surface of the right great toe over the medial toe as described above. Dressing changes of Medihoney, gauze, and Coban will be continued on a daily basis after cleansing and irrigation. The patient will continue to perform her own dressing changes. I will see Ms. Quinteros again in 2 weeks. 2. Rheumatoid arthritis. 3. Transient ischemic attack x2. 4. Hypertension. 5. Gastroesophageal reflux disease. 6. Asthma. 7. Diabetes mellitus. The patient's Accu-Chek in clinic today is 201. The patient has been reminded that for optimal wound healing, her blood glucoses should remain below 150. 8. Fibromyalgia. 9. History of hepatitis C. The patient stated previously that she completed treatment for hepatitis C, 5 to 6 years ago. 10. Osteoporosis. 11. Chronic obstructive pulmonary disease/emphysema. 12. Anemia. Job ID: [id number]
== END 2018-03-26 15:02 | disposition home or self-care (01) ==
LOC: WCC 15:01
PROVIDERS: ATTEND Family Medicine
DX: E11.621 Type 2 diabetes mellitus with foot ulcer (principal); L97.519 Non-pressure chronic ulcer of other part of right foot with unspecified severity; M06.9 Rheumatoid arthritis, unspecified; G45.9 Transient cerebral ischemic attack, unspecified; I10 Essential (primary) hypertension; K21.9 Gastro-esophageal reflux disease without esophagitis; J45.909 Unspecified asthma, uncomplicated; M79.7 Fibromyalgia; M81.0 Age-related osteoporosis without current pathological fracture; J43.9 Emphysema, unspecified; D64.9 Anemia, unspecified; Z86.19 Personal history of other infectious and parasitic diseases
CPT/HCPCS: A4218

== ENCOUNTER 2018-04-09 12:55 | Outpatient (CLI) | payer OTHER ==
--- NOTE | 2018-04-09 14:36 | PRG ---
DATE OF SERVICE: 04/09/2018 HISTORY: Ms. Jennifer Quinteros is a very pleasant 57-year-old who presents to the Wound Center for evaluation of an ulceration of the plantar surface of the right medial great toe. At the time of the patient's initial presentation to the Wound Center, the patient stated that the ulceration had been present for over 6 weeks. She stated that she had been seen by Dr. Craig on 02/09/2018. At which time, the ulcer was debrided. She stated that at the time of her visit with Dr. Craig, she was referred to the Wound Center for further evaluation and treatment. After being seen in the Wound Center, dressing changes of Medihoney were initiated. The patient previously stated that she was seen at [facility] and placed on p.o. antibiotics for an infectious process associated with her wound. PHYSICAL EXAMINATION: VITAL SIGNS: Temperature 98.9, pulse 95, respirations 17, and blood pressure 132/78. Accu-Chek 158. EXTREMITIES: The ulceration of the plantar surface of the right great toe over the medial toe measures approximately 0.9 x 0.6 cm. The dimensions of the wound at the time of the patient's visit on 03/26/2018 were approximately 1.0 x 0.6 cm. Granulation tissue was present within the wound margins. No purulent drainage is associated with the wound. No erythema of the skin surrounding the wound is present. No maceration of the skin of the periwound is noted. No significant edema of the right foot or great toe is present on exam today. ASSESSMENT AND PLAN: 1. Ulceration of plantar surface of the right great toe over the medial toe as described above. The patient reports pain associated with the application of Medihoney to her ulceration; therefore, dressing changes of Xeroform gauze and Coban are to be performed on a daily basis after cleansing and irrigation. The patient will continue to perform her own dressing changes. I will see Ms. Quinteros again in 2 weeks. 2. Rheumatoid arthritis. 3. Transient ischemic attack x2. 4. Hypertension. 5. Gastroesophageal reflux disease. 6. Asthma. 7. Diabetes mellitus. The patient's Accu-Chek in clinic today is 158. The patient has been reminded that for optimal wound healing, her blood glucoses should remain below 150. 8. Fibromyalgia. 9. History of hepatitis C. The patient stated previously, that she completed treatment for hepatitis C 5 to 6 years ago. 10. Osteoporosis. 11. Chronic obstructive pulmonary disease/emphysema. 12. Anemia. Job ID: [id number]
== END 2018-04-09 12:56 | disposition home or self-care (01) ==
LOC: WCC 12:55
PROVIDERS: ATTEND Family Medicine
DX: E11.621 Type 2 diabetes mellitus with foot ulcer (principal); L97.519 Non-pressure chronic ulcer of other part of right foot with unspecified severity; M06.9 Rheumatoid arthritis, unspecified; G45.9 Transient cerebral ischemic attack, unspecified; I10 Essential (primary) hypertension; K21.9 Gastro-esophageal reflux disease without esophagitis; J45.909 Unspecified asthma, uncomplicated; M79.7 Fibromyalgia; M81.0 Age-related osteoporosis without current pathological fracture; J43.9 Emphysema, unspecified; D64.9 Anemia, unspecified; Z86.19 Personal history of other infectious and parasitic diseases
CPT/HCPCS: A4218

== ENCOUNTER 2018-04-23 13:02 | Outpatient (CLI) | payer OTHER ==
--- NOTE | 2018-04-23 13:56 | PRG ---
DATE OF SERVICE: 04/23/2018 HISTORY: Ms. Jennifer Quinteros is a very pleasant 57-year-old who presents to the Wound Center for evaluation of an ulceration of the plantar surface of the right medial great toe. At the time of the patient's initial presentation to the Wound Center, the patient stated that the ulceration has been present for over 6 weeks. She stated that she had been seen by Dr. Craig on 02/09/2018. At which time, the ulcer was debrided. She stated that, at the time of her visit with Dr. Craig, she was referred to the Wound Center for further evaluation and treatment. After being seen in the Wound Center, dressing changes of Medihoney were initiated. The patient previously stated that she was seen at [facility] and placed on p.o. antibiotics for an infectious process associated with her wound. Since the patient's last visit, Ms. Quinteros has been performing dressing changes of Xeroform gauze and Coban on a daily basis after cleansing and irrigation. PHYSICAL EXAMINATION: VITAL SIGNS: Temperature 97.8, pulse 82, respirations 17, blood pressure 109/62. Accu-Chek 170. EXTREMITIES: The ulceration of the plantar surface of the right great toe over the medial toe measures approximately 1.0 x 0.5 cm. The dimensions of the wound at the time of the patient's visit on 04/09/2018 were approximately 0.9 x 0.6 cm. Granulation tissue is present within the wound margins. No purulent drainage is associated with the wound. No erythema of the skin surrounding the wound is present. No maceration of the skin of the periwound is noted. No significant edema of the right foot or right great toe is present on exam today. ASSESSMENT AND PLAN: 1. Ulceration of plantar surface of the right great toe over the medial toe as described above. Dressing changes of Xeroform gauze and Coban will be continued on a daily basis after cleansing and irrigation. The patient will continue to perform her own dressing changes. I have asked the patient to return to clinic in 2 weeks. 2. Rheumatoid arthritis. 3. Transient ischemic attack x2. 4. Hypertension. 5. Gastroesophageal reflux disease. 6. Asthma. 7. Diabetes mellitus. The patient's Accu-Chek in clinic today is 170. The patient has been reminded that, for optimal wound healing, her blood glucoses should remain below 150. 8. Fibromyalgia. 9. History of hepatitis C. The patient previously stated that she completed treatment for hepatitis C 5 to 6 years ago. 10. Osteoporosis. 11. Chronic obstructive pulmonary disease/emphysema. 12. Anemia. Job ID: [id number]
[2018-04-23] MEDS ORDERED: Lidocaine 2% PF 100 mg/5 ml Syringe ONE (15:00)
[2018-04-23] MEDS ORDERED: Sodium Chloride 0.9% 15 ML NEB ONE (15:00)
== END 2018-04-23 13:03 | disposition home or self-care (01) ==
LOC: WCC 13:02
PROVIDERS: ATTEND Family Medicine
DX: L97.519 Non-pressure chronic ulcer of other part of right foot with unspecified severity (principal); M06.9 Rheumatoid arthritis, unspecified; G45.9 Transient cerebral ischemic attack, unspecified; I10 Essential (primary) hypertension; K21.9 Gastro-esophageal reflux disease without esophagitis; J45.909 Unspecified asthma, uncomplicated; E11.9 Type 2 diabetes mellitus without complications; M79.7 Fibromyalgia; M81.0 Age-related osteoporosis without current pathological fracture; J43.9 Emphysema, unspecified; D64.9 Anemia, unspecified; Z86.19 Personal history of other infectious and parasitic diseases
CPT/HCPCS: 97602; A4218; J2001

== ENCOUNTER 2018-05-18 14:07 | Outpatient (CLI) | payer OTHER ==
[~2018-05-18 14:07] MED LIST changes: +Lidocaine 2% PF 100 mg/5 ml Syringe ONE
--- NOTE | 2018-05-18 15:39 | PRG ---
DATE OF SERVICE: 05/18/2018 HISTORY: Ms. Jennifer Quinteros is a very pleasant 57-year-old, who presents to the Wound Center for evaluation of an ulceration of the plantar surface of the right medial great toe. At the time of the patient's initial presentation to the Wound Center, the patient stated that the ulceration had been present for over 6 weeks. She stated that she had been seen by Dr. Craig on 02/09/2018; at which time, the ulcer was debrided. She stated that, at the time of her visit with Dr. Craig, she was referred to the Wound Center for further evaluation and treatment. After being seen in the Wound Center, dressing changes of Medihoney were initiated. The patient previously stated that she was seen at [facility] and placed on p.o. antibiotics for an infectious process associated with her wound. Since the patient's last visit, Ms. Quinteros has been performing dressing changes of Xeroform gauze and Coban on a daily basis after cleansing and irrigation. PHYSICAL EXAMINATION: VITAL SIGNS: Temperature 97.4, pulse 85, respirations 20, and blood pressure 134/73. Accu-Chek 160. EXTREMITIES: The ulceration of the plantar surface of the right great toe over the medial toe measures approximately 0.8 x 0.2 cm. The dimensions of the wound at the time of the patient's visit on 04/23/2018 were approximately 1.0 x 0.5 cm. Granulation tissue is present within the wound margins. No purulent drainage is associated with the wound. No erythema of the skin surrounding the wound is present. No maceration of the skin of the periwound is noted. No significant edema of the right foot or right great toe is present on exam today. ASSESSMENT AND PLAN: 1. Ulceration of plantar surface of the right great toe over the medial toe as described above. Dressing changes of Xeroform gauze and Coban will be continued on a daily basis after cleansing and irrigation. The patient will continue to perform her own dressing changes. I will see Ms. Quinteros again in 2 weeks. 2. Rheumatoid arthritis. 3. Transient ischemic attack x2. 4. Hypertension. 5. Gastroesophageal reflux disease. 6. Asthma. 7. Diabetes mellitus. The patient's Accu-Chek in clinic today is 160. The patient has been reminded that for optimal wound healing, her blood glucoses should remain below 150. 8. Fibromyalgia. 9. History of hepatitis C. The patient previously stated that she completed treatment for hepatitis C 5 to 6 years ago. 10. Osteoporosis. 11. Chronic obstructive pulmonary disease/emphysema. 12. Anemia. Job ID: [id number]
== END 2018-05-18 14:08 | disposition home or self-care (01) ==
LOC: WCC 14:07
PROVIDERS: ATTEND Family Medicine
DX: E11.621 Type 2 diabetes mellitus with foot ulcer (principal); L97.519 Non-pressure chronic ulcer of other part of right foot with unspecified severity; M06.9 Rheumatoid arthritis, unspecified; G45.9 Transient cerebral ischemic attack, unspecified; I10 Essential (primary) hypertension; K21.9 Gastro-esophageal reflux disease without esophagitis; J45.909 Unspecified asthma, uncomplicated; M79.7 Fibromyalgia; M81.0 Age-related osteoporosis without current pathological fracture; J43.9 Emphysema, unspecified; D64.9 Anemia, unspecified; Z86.19 Personal history of other infectious and parasitic diseases
CPT/HCPCS: 97602; A4218; J2001

== ENCOUNTER 2018-06-03 13:19 | Outpatient (CLI) | payer OTHER ==
--- NOTE | 2018-06-03 13:54 | PRG ---
DATE OF SERVICE: 06/03/2018 HISTORY: Ms. Jennifer Quinteros is a very pleasant 57-year-old, who presents to the Wound Center for evaluation of an ulceration of the plantar surface of the right great toe. At the time of the patient's initial presentation to the Wound Center, the patient stated that the ulceration had been present for over 6 weeks. She stated that she had been seen by Dr. Craig on 02/09/2018, at which time the ulcer was debrided. She stated that at the time of her visit with Dr. Craig, she was referred to the Wound Center for further evaluation and treatment. After being seen in the Wound Center, dressing changes of Medihoney were initiated. The patient previously stated that she was seen at [facility] and placed on p.o. antibiotics for an infectious process associated with her wound. Since the patient's last visit, Ms. Quinteros has been performing dressing changes of Xeroform gauze and Coban on a daily basis after cleansing and irrigation for the right great toe wound. PHYSICAL EXAMINATION: VITAL SIGNS: Temperature 98.0, pulse 78, respirations 16, blood pressure 128/62. Accu-Chek 138. EXTREMITIES: The ulceration of the plantar surface of the right great toe measures approximately 0.3 x 0.1 cm. The dimensions of the wound at the time of the patient's visit on 05/18/2018 were approximately 0.8 x 0.2 cm. Granulation tissue is present within the wound margins. No purulent drainage is associated with the wound. No erythema of the skin surrounding the wound is present. No maceration of the skin of the periwound is noted. No significant edema of the right foot or right great toe is present on exam today. ASSESSMENT AND PLAN: 1. Ulceration of plantar surface of the right great toe as described above. Dressing changes of Xeroform gauze and Coban will be continued on a daily basis after cleansing and irrigation. The patient will continue to perform her own dressing changes. I will see Ms. Quinteros again in 2 weeks. 2. Rheumatoid arthritis. 3. Transient ischemic attack x2. 4. Hypertension. 5. Gastroesophageal reflux disease. 6. Asthma. 7. Diabetes mellitus. The patient's Accu-Chek in clinic today is 138. The patient has been reminded that for optimal wound healing, her blood glucoses should remain below 150. 8. Fibromyalgia. 9. History of hepatitis C. The patient previously stated that she completed treatment for hepatitis C 5 to 6 years ago. 10. Osteoporosis. 11. Chronic obstructive pulmonary disease/emphysema. 12. Anemia. Job ID: [id number]
== END 2018-06-03 13:20 | disposition home or self-care (01) ==
LOC: WCC 13:19
PROVIDERS: ATTEND Family Medicine
DX: E11.621 Type 2 diabetes mellitus with foot ulcer (principal); L97.519 Non-pressure chronic ulcer of other part of right foot with unspecified severity; M06.9 Rheumatoid arthritis, unspecified; K21.9 Gastro-esophageal reflux disease without esophagitis; G45.9 Transient cerebral ischemic attack, unspecified; M79.7 Fibromyalgia; D64.9 Anemia, unspecified; M81.0 Age-related osteoporosis without current pathological fracture; J43.9 Emphysema, unspecified; J45.909 Unspecified asthma, uncomplicated; Z86.19 Personal history of other infectious and parasitic diseases
CPT/HCPCS: 97602; A4218; J2001

== ENCOUNTER 2018-06-24 15:42 | Outpatient (CLI) | payer OTHER ==
--- NOTE | 2018-06-24 16:47 | PRG ---
DATE OF SERVICE: 06/24/2018 HISTORY: Ms. Jennifer Quinteros is a very pleasant 58-year-old, who presents to the wound center for evaluation of an ulceration of the plantar surface of the right great toe. At the time of the patient's initial presentation to the wound center, the patient stated that the ulceration had been present for over 6 weeks. She stated that she had been seen by Dr. Craig on 02/09/2018 at which time the ulcer was debrided. She stated that at the time of her visit with Dr. Craig, she was referred to the wound center for further evaluation and treatment. After being seen in the wound center, dressing changes of Medihoney were initiated. The patient previously stated that she was seen at [facility] and placed on p.o. antibiotics for an infectious process associated with her wound. Since the patient's last visit, Ms. Quinteros has been performing dressing changes of Xeroform gauze on a daily basis after cleansing and irrigation for the right great toe wound. PHYSICAL EXAMINATION: VITAL SIGNS: Temperature 98.1, pulse 78, respirations 19, blood pressure 145/79. Accu-Chek 120. EXTREMITIES: The ulceration of the plantar surface of the right great toe measures approximately 0.5 x 0.1 cm. The dimensions of the wound at the time of the patient's visit on 06/03/2018 were approximately 0.3 x 0.1 cm. Granulation tissue is present within the wound margins. No purulent drainage is associated with the wound. No erythema of the skin surrounding the wound is present. No maceration of the skin of the periwound is noted. No significant edema of the right foot or right great toe is present on exam today. ASSESSMENT AND PLAN: 1. Ulceration of plantar surface of the right great toe as described above. Dressing changes of Xeroform will be continued on a daily basis after cleansing and irrigation. The patient will continue to perform her own dressing changes. I will see Ms. Quinteros again in 3 weeks. 2. Rheumatoid arthritis. 3. Transient ischemic attack x2. 4. Hypertension. 5. Gastroesophageal reflux disease. 6. Asthma. 7. Diabetes mellitus. The patient's Accu-Chek in clinic today is 120. The patient has been reminded that for optimal wound healing her blood glucoses should remain below 150. 8. Fibromyalgia. 9. History of hepatitis C. The patient previously stated that she completed treatment for hepatitis C 5 to 6 years ago. 10. Osteoporosis. 11. Chronic obstructive pulmonary disease/emphysema. 12. Anemia. Job ID: [id number]
== END 2018-06-24 15:43 | disposition home or self-care (01) ==
LOC: WCC 15:42
PROVIDERS: ATTEND Family Medicine
DX: E11.621 Type 2 diabetes mellitus with foot ulcer (principal); L97.519 Non-pressure chronic ulcer of other part of right foot with unspecified severity; I10 Essential (primary) hypertension; G45.9 Transient cerebral ischemic attack, unspecified; M06.9 Rheumatoid arthritis, unspecified; K21.9 Gastro-esophageal reflux disease without esophagitis; J45.909 Unspecified asthma, uncomplicated; M79.7 Fibromyalgia; M81.0 Age-related osteoporosis without current pathological fracture; D64.9 Anemia, unspecified; J43.9 Emphysema, unspecified; Z86.19 Personal history of other infectious and parasitic diseases

== ENCOUNTER 2018-07-15 15:14 | Outpatient (CLI) | payer OTHER ==
--- NOTE | 2018-07-15 13:52 | PRG ---
DATE OF SERVICE: 07/15/2018 SUBJECTIVE: Ms. Jennifer Quinteros is a very pleasant 58-year-old who presents to the Wound Center for evaluation of an ulceration of a plantar surface of the right great toe. At the time of the patient's initial presentation to the Wound Center, the patient stated that the ulceration had been present for over 6 weeks. She stated that she had been seen by Dr. Craig on 02/09/2018 at which time the ulcer was debrided. She stated that at the time of her visit with Dr. Craig, she was referred to the Wound Center for further evaluation and treatment. After being seen in the Wound Center, dressing changes of Medihoney were initiated. The patient previously stated that she was seen at [facility] and placed on p.o. antibiotics for an infectious process associated with her wound. Since the patient's last visit, Ms. Quinteros has been performing dressing changes with Xeroform gauze on a daily basis after cleansing and irrigation for her right great toe wound. OBJECTIVE: VITAL SIGNS: Temperature 97.9, pulse 85, respirations 18, blood pressure 118/73. Accu-Chek 150. EXTREMITIES: The ulceration of the plantar surface of the right great toe measures approximately 0.2 x 0.1 cm. The dimensions of the wound at the time of the patient's visit on 06/24/2018, were approximately 0.5 x 0.1 cm. Granulation tissue was present within the wound margins. No purulent drainage was associated with the wound. No erythema of the skin surrounding the wound is present. No maceration of the skin of the periwound is noted. No significant edema of the right foot or right great toe is present on today's exam. ASSESSMENT AND PLAN: 1. Ulceration of plantar surface of the right great toe as described above. 2. Dressing changes of Xeroform gauze and Coban are to be performed on a daily basis after cleansing and irrigation. The patient will continue to perform her own dressing changes. I will see Ms. Quinteros again in 3 weeks. 3. Rheumatoid arthritis. 4. Transient ischemic attack x2. 5. Hypertension. 6. Gastroesophageal reflux disease. 7. Asthma. 8. Diabetes mellitus. The patient's Accu-Chek in clinic today is 150. The patient has been reminded that for optimal wound healing her blood glucoses should remain below 150. 9. Fibromyalgia. 10. History of hepatitis C. The patient previously stated that she completed treatment for hepatitis C 5 to 6 years ago. 11. Osteoporosis. 12. Chronic obstructive pulmonary disease/emphysema. 13. Anemia. Job ID: [id number]
== END 2018-07-15 15:15 | disposition home or self-care (01) ==
LOC: WCC 15:14
PROVIDERS: ATTEND Family Medicine
DX: E11.621 Type 2 diabetes mellitus with foot ulcer (principal); L97.519 Non-pressure chronic ulcer of other part of right foot with unspecified severity; M06.9 Rheumatoid arthritis, unspecified; G45.9 Transient cerebral ischemic attack, unspecified; I10 Essential (primary) hypertension; K21.9 Gastro-esophageal reflux disease without esophagitis; J45.909 Unspecified asthma, uncomplicated; M79.7 Fibromyalgia; M81.0 Age-related osteoporosis without current pathological fracture; J43.9 Emphysema, unspecified; D64.9 Anemia, unspecified; Z86.19 Personal history of other infectious and parasitic diseases

== ENCOUNTER 2018-08-19 14:05 | Outpatient (CLI) | payer OTHER ==
--- NOTE | 2018-08-19 14:07 | PRG ---
DATE OF SERVICE: 08/19/2018 HISTORY: Ms. Jennifer Quinteros is a very pleasant 58-year-old, who presents to the Wound Center for evaluation of an ulceration of the plantar surface of the right great toe. At the time of the patient's initial presentation to the Wound Center, the patient stated that the ulceration had been present for over 6 weeks. She stated that she had been seen by Dr. Craig on 02/09/2018 at which time the ulcer was debrided. She stated that at the time of her visit with Dr. Craig, she was referred to the Wound Center for further evaluation and treatment. After being seen in the Wound Center, dressing changes of Medihoney were initiated. The patient previously stated that she was seen at [facility] and placed on p.o. antibiotics for an infectious process associated with her wound. Since the patient's last visit, Ms. Quinteros has been performing dressing changes of Xeroform gauze on a daily basis after cleansing and irrigation for her right great toe wound. PHYSICAL EXAMINATION: VITAL SIGNS: Temperature 97.7, pulse 91, and blood pressure 174/93. Accu-Chek 136. EXTREMITIES: The ulceration of the plantar surface of the right great toe measures approximately 0.3 x 0.1 cm. The dimensions of the wound at the time of the patient's visit on 07/15/2018 were approximately 0.2 x 0.1 cm. The depth of the wound is approximately 0.3 cm. Granulation tissue is present within the wound margins. No purulent drainage is associated with the wound. No erythema of the skin surrounding the wound is present. No maceration of the skin of the periwound is noted. No significant edema of the right foot or right great toe is present on exam today. ASSESSMENT AND PLAN: 1. Ulceration of plantar surface of the right great toe as described above. Dressing changes of Xeroform gauze and Coban will be discontinued. Dressing changes of Promogran will be initiated today. These dressing changes are to be performed on a daily basis after cleansing and irrigation. The patient will continue to perform her own dressing changes. I will see Ms. Quinteros again in 3 weeks. 2. Rheumatoid arthritis. 3. Transient ischemic attack x2. 4. Hypertension. 5. Gastroesophageal reflux disease. 6. Asthma. 7. Diabetes mellitus. The patient's Accu-Chek in clinic today is 136. The patient has been reminded that for optimal wound healing, her blood glucoses should remain below 150. 8. Fibromyalgia. 9. History of hepatitis C. The patient previously stated that she completed treatment for hepatitis C, 5 to 6 years ago. 10. Osteoporosis. 11. Chronic obstructive pulmonary disease/emphysema. 12. Anemia. Job ID: [id number]
[2018-08-19] MEDS ORDERED: Sodium Chloride 0.9% 15 ML NEB ONE (15:08)
[2018-08-19] MEDS ORDERED: Lidocaine 2% Jelly 5 ML TUBE ONE (15:08)
== END 2018-08-19 14:06 | disposition home or self-care (01) ==
LOC: WCC 14:05
PROVIDERS: ATTEND Family Medicine
DX: E11.621 Type 2 diabetes mellitus with foot ulcer (principal); L97.519 Non-pressure chronic ulcer of other part of right foot with unspecified severity; M06.9 Rheumatoid arthritis, unspecified; G45.9 Transient cerebral ischemic attack, unspecified; I10 Essential (primary) hypertension; K21.9 Gastro-esophageal reflux disease without esophagitis; J45.909 Unspecified asthma, uncomplicated; M79.7 Fibromyalgia; M81.0 Age-related osteoporosis without current pathological fracture; J44.9 Chronic obstructive pulmonary disease, unspecified; D64.9 Anemia, unspecified; Z86.19 Personal history of other infectious and parasitic diseases
CPT/HCPCS: 97602; A4218

== ENCOUNTER 2018-09-09 13:48 | Outpatient (CLI) | payer OTHER ==
--- NOTE | 2018-09-09 14:02 | PRG ---
DATE OF SERVICE: 09/09/2018 HISTORY: Ms. Jennifer Quinteros is a very pleasant 58-year-old, who presents to the Wound Center for evaluation of an ulceration of the plantar surface of the right great toe. Since the patient's last visit, Ms. Quinteros states the ulceration had healed completely after performing dressing changes of Promogran as prescribed. She states that the ulceration, however, recurred. The patient today complains of pain associated with the ulceration of her right great toe. The patient has no other complaints today. She denies any fever or chills. PHYSICAL EXAMINATION: VITAL SIGNS: Temperature 98.1, pulse 80, respirations 16, and blood pressure 121/70. Accu-Chek 145. EXTREMITIES: The ulceration of the plantar surface of the right great toe measures approximately 0.2 x 0.2 cm. The dimensions of the wound at the time of the patient's visit on 08/19/2018, were approximately 0.3 x 0.1 cm. The depth of the wound is approximately 0.5 cm. Granulation tissue is present within the wound margins. No purulent drainage is associated with the wound. No erythema of the skin surrounding the wound is present. No maceration of the skin of the periwound is noted. No significant edema of the right foot or right great toe is present on exam today. ASSESSMENT AND PLAN: 1. Ulceration of plantar surface of the right great toe as described above. Dressing changes of Promogran will be discontinued. Dressing changes of Xeroform gauze will be resumed. These dressing changes are to be performed on a daily basis after cleansing and irrigation. The patient will continue to perform her own dressing changes Coban or Bordered gauze will be utilized as a secondary dressing. I will see Ms. Quinteros again in 3 weeks. I have recommended the plain films of the right foot to Ms. Quinteros. She states she will consider her options in regard to obtaining a plain film of the right foot. 2. Rheumatoid arthritis. 3. Transient ischemic attack x2. 4. Hypertension. 5. Gastroesophageal reflux disease. 6. Asthma. 7. Diabetes mellitus. The patient's Accu-Chek in clinic today is 145. The patient has been reminded that for optimal wound healing, her blood glucoses should remain below 150. 8. Fibromyalgia. 9. History of hepatitis C. The patient previously stated that she completed treatment for hepatitis C, 5 to 6 years ago. 10. Osteoporosis. 11. Chronic obstructive pulmonary disease/emphysema. 12. Anemia. Job ID: [id number]
[2018-09-09] MEDS ORDERED: Sodium Chloride 0.9% 15 ML NEB ONE (18:00)
== END 2018-09-09 13:49 | disposition home or self-care (01) ==
LOC: WCC 13:48
PROVIDERS: ATTEND Family Medicine
DX: E11.621 Type 2 diabetes mellitus with foot ulcer (principal); L97.519 Non-pressure chronic ulcer of other part of right foot with unspecified severity; M06.9 Rheumatoid arthritis, unspecified; I10 Essential (primary) hypertension; G45.9 Transient cerebral ischemic attack, unspecified; K21.9 Gastro-esophageal reflux disease without esophagitis; J45.909 Unspecified asthma, uncomplicated; M81.0 Age-related osteoporosis without current pathological fracture; D64.9 Anemia, unspecified; M79.7 Fibromyalgia; J43.9 Emphysema, unspecified; Z86.19 Personal history of other infectious and parasitic diseases
CPT/HCPCS: 97602; A4218

== ENCOUNTER 2018-11-18 09:03 | Outpatient (CLI) | payer OTHER ==
--- NOTE | 2018-11-18 13:39 | NM ---
WHOLE BODY BONE SCAN WITH TRIPLE PHASE IMAGING THROUGH THE PELVIS: 11/18/18 HISTORY: Total replacement of right hip joint. Presence of right artificial hip joint. Right hip pain. RADIOPHARMACEUTICAL: 33 millicuries technetium 99m-MDP injected intravenously. FINDINGS: No increase or asymmetric of blood flow is seen to either hip. No abnormal blood pooling is noted. De layed images demonstrate changes of bilateral hip and knee replacements. No abnormal tracer localizat ion is seen in either hip joint. There is increased uptake in the shoulders, ankles, feet, and the lower lumbar spine on the right. Th alvino findings are consistent with degenerative changes. Mild increased uptake in the left knee is like ly due to postop change. Tracer excretion through the kidneys is within normal limits. IMPRESSION: No evidence of infection or loosening in the hip prostheses. POS: OFF
== END 2018-11-18 09:04 | disposition home or self-care (01) ==
LOC: NM 09:03
PROVIDERS: ATTEND Orthopaedic Surgery
DX: Z47.1 Aftercare following joint replacement surgery (principal); Z96.641 Presence of right artificial hip joint
CPT/HCPCS: 78315; A9503

== ENCOUNTER 2018-11-30 11:37 | Emergency (ER) | payer OTHER, SELFPAY ==
[2018-11-30 12:53] LABS: #Eosinphils 0.3 thou/uL (0.0-0.7); #Lymphocytes 2.2 thou/uL (1.20-3.40); #Monocytes 0.7 thou/uL (0.11-0.59); %Basophils 0.7 % (0.0-1.0); %Eosinophils 3.5 % (0.0-10.0); %Lymphocytes 30.9 % (21.0-51.0); %Monocytes 9.8 % (0.0-10.0); %Neutrophils 55.1 % (42.0-75.0); Hemoglobin 12.5 g/dL (12.0-16.0); Mean Corpuscular HGB CONC 33.6 g/dL (32.0-36.0); Mean Corpuscular Volume 95.2 fL (78.0-98.0); Mean Platelet Volume 7.5 fL (7.4-10.4); Platelet Count 190 thou/uL (130-400); RBC Distribution Width 11.9 % (11.5-14.5); Red Blood Cell (RBC) Count 3.91 mill/uL (4.20-5.40); White Blood Cell (WBC) Count 7.2 thou/uL (4.8-10.8)
[2018-11-30 13:17] LABS: ALT (SGPT) 14 U/L (8-55); AST (SGOT) 15 U/L (5-34); Alkaline Phosphatase 48 U/L (40-150); Anion Gap 12 mmol/L (10-20); BUN (Urea Nitrogen) 13 mg/dL (9.8-20.1); Bilirubin, Total 0.3 mg/dL (0.2-1.2); Calc. Creatinine Clearance 0 mL/min (70-130); Calcium 9.7 mg/dL (7.8-10.44); Carbon Dioxide 22 mmol/L (22-29); Chloride 106 mmol/L (98-107); Estimated GFR-MDRD 73; Globulin 3.1 g/dL (2.4-3.5); Glucose 124 mg/dL (70-105); Potassium 4.6 mmol/L (3.5-5.1); Protein, Total 7.1 g/dL (6.0-8.3); Sodium 135 mmol/L (136-145)
--- NOTE | 2018-11-30 13:18 | RAD ---
Exam: Right foot 3 views: HISTORY: Diabetes mellitus, right toe wound COMPARISON: 01/28/2018 FINDINGS: Extensive stable bone infarcts including the distal tibia, calcaneus, talus, navicular, and the media l cuneiform and base of the first metatarsal. There appears to be some partial collapse of the navicular although stable. No acute fracture or dislocation. Arthrosis and degenerative changes. Bony demineralization. IMPRESSION: Extensive but overall stable appearing areas of osteonecrosis. Severe bony demineralization and arthr osis and degenerative change. No significant acute process.
== END 2018-11-30 13:47 | disposition home or self-care (01) ==
LOC: ERS 11:37
DX: S91.101A Unspecified open wound of right great toe without damage to nail, initial encounter (principal); E11.9 Type 2 diabetes mellitus without complications; I10 Essential (primary) hypertension; E78.5 Hyperlipidemia, unspecified; M06.9 Rheumatoid arthritis, unspecified; J44.9 Chronic obstructive pulmonary disease, unspecified; F31.9 Bipolar disorder, unspecified; F25.9 Schizoaffective disorder, unspecified; Z79.899 Other long term (current) drug therapy; Z86.73 Personal history of transient ischemic attack (TIA), and cerebral infarction without residual deficits; Z79.4 Long term (current) use of insulin; X58.XXXA Exposure to other specified factors, initial encounter
CPT/HCPCS: 36415; 80053; 85025; 85652; 86140

== ENCOUNTER 2018-12-24 10:22 | Outpatient (CLI) | payer OTHER ==
--- NOTE | 2018-12-24 10:23 | PRG ---
DATE OF SERVICE: 12/24/2018 HISTORY: Ms. Jennifer Quinteros is a very pleasant 58-year-old, who presents to the wound center for evaluation of an ulceration of the plantar surface of the right great toe. At the time of the patient's last visit, the patient stated that the ulceration had healed completely. She stated that she developed a callus associated with the healed ulceration, which she trimmed on her own with a razor. The patient also stated that she had been seen in the Emergency Department here at [facility], where plain films of the right foot were obtained, which showed no evidence of bone infection. Since the patient's last visit, Ms. Quinteros has been performing dressing changes of Medihoney alginate on a daily basis after cleansing and irrigation. The patient has no other complaints today. She denies any fever or chills. PHYSICAL EXAMINATION: VITAL SIGNS: Temperature 97.2, pulse 80, respirations 18, and blood pressure 166/95. Accu-Chek 121. EXTREMITIES: An ulceration of the plantar surface of the right great toe is present, which measures approximately 0.4 x 0.3 cm. Granulation tissue is present within the wound margins. Callus and desiccated tissue at the periphery of the wound were eliminated with the use of scissors. No purulent drainage is associated with the wound. No erythema of the skin surrounding the wound is present. No maceration of the skin of the periwound is noted. No significant edema of the right foot or right great toe is present on exam today. ASSESSMENT AND PLAN: 1. Ulceration of plantar surface of the right great toe as described above. Dressing changes of Medihoney alginate will be continued on a daily basis after cleansing and irrigation. The patient will continue to perform her own dressing changes. Coban or gauze and tape will be utilized as secondary dressings. I will see Ms. Quinteros again in 3 weeks. The patient has been reassured that the wound has improved in its appearance since the patient's last visit. 2. Rheumatoid arthritis. 3. Transient ischemic attack x2. 4. Hypertension. 5. Gastroesophageal reflux disease. 6. Asthma. 7. Diabetes mellitus. The patient's Accu-Chek in clinic today is 121. The patient has been reminded that for optimal wound healing her blood glucoses should remain below 150. 8. Fibromyalgia. 9. History of hepatitis C. The patient previously stated that she completed treatment for hepatitis C, 5 to 6 years ago. 10. Osteoporosis. 11. Chronic obstructive pulmonary disease/emphysema. 12. Anemia. Job ID: [id number]
== END 2018-12-24 10:23 | disposition home or self-care (01) ==
LOC: WCC 10:22
PROVIDERS: ATTEND Family Medicine
DX: E11.621 Type 2 diabetes mellitus with foot ulcer (principal); L97.512 Non-pressure chronic ulcer of other part of right foot with fat layer exposed; G45.9 Transient cerebral ischemic attack, unspecified; M06.9 Rheumatoid arthritis, unspecified; I10 Essential (primary) hypertension; K21.9 Gastro-esophageal reflux disease without esophagitis; J45.909 Unspecified asthma, uncomplicated; M79.7 Fibromyalgia; M81.0 Age-related osteoporosis without current pathological fracture; D64.9 Anemia, unspecified; Z86.19 Personal history of other infectious and parasitic diseases
CPT/HCPCS: 36416; 97602; A4218; J2001

== ENCOUNTER 2019-01-27 10:42 | Outpatient (CLI) | payer OTHER ==
--- NOTE | 2019-01-27 09:51 | PRG ---
DATE OF SERVICE: 01/27/2019 HISTORY: Ms. Jennifer Quinteros is a very pleasant 58-year-old, who presents to the Wound Center for evaluation of an ulceration of the plantar surface of the right great toe. At the time of the previous visit, the patient stated that the ulceration had healed completely. She stated that she developed a callus associated with the healed ulceration, which she trimmed on her own with a razor. The patient also stated that she had been seen in the emergency department here at [facility], where plain films of the right foot were obtained, which showed no evidence of bone infection. Since the patient's last visit, Ms. Quinteros has been performing dressing changes of Medihoney alginate for her ulceration. The patient has no other complaints today. She denies any fever or chills. PHYSICAL EXAMINATION: VITAL SIGNS: Temperature 98.0, pulse 92, respirations 16, and blood pressure 170/82. Accu-Chek 133. EXTREMITIES: An ulceration of the plantar surface of the right great toe is present, which measures approximately 0.5 x 0.3 cm. Granulation tissue is present within the wound margins. Callus desiccated tissue and undermining at the periphery of the wound were eliminated with the use of scissors. Nonviable tissue present within the wound margins was debrided with an excisional full-thickness debridement with the use of a curette. No purulent drainage is associated with the wound. No erythema of the skin surrounding the wound is present. No maceration of the skin of the periwound is noted. No significant edema of the right foot or right great toe is present on exam today. ASSESSMENT AND PLAN: 1. Ulceration of plantar surface of right great toe as described above. Dressing changes of Multidex powder will be initiated today. These dressing changes are to be performed on a daily basis after cleansing and irrigation. The patient will continue to perform her own dressing changes. Gauze will be utilized as a secondary dressing. I will see Ms. Quinteros again in 3 weeks. The importance of offloading and achieving the healing of the ulceration has been discussed at length with Ms. Quinteros today. She states that she is unable to obtain a knee scooter for more optimal offloading. 2. Rheumatoid arthritis. 3. Transient ischemic attack x2. 4. Hypertension. 5. Gastroesophageal reflux disease. 6. Asthma. 7. Diabetes mellitus. The patient's Accu-Chek in clinic today is 133. The patient has been reminded that for optimal wound healing, her blood glucoses should remain below 150. 8. Fibromyalgia. 9. History of hepatitis C. The patient previously stated that she completed treatment for hepatitis C, 5 to 6 years ago. 10. Osteoporosis. 11. Chronic obstructive pulmonary disease/emphysema. 12. Anemia. Job ID: [id number]
[2019-01-27] MEDS ORDERED: Lidocaine 2% PF 100 mg/5 ml Syringe ONE (15:00)
[2019-01-27] MEDS ORDERED: Sodium Chloride 0.9% 15 ML NEB ONE (15:00)
== END 2019-01-27 10:43 | disposition home or self-care (01) ==
LOC: WCC 10:42
PROVIDERS: ATTEND Family Medicine
DX: E11.621 Type 2 diabetes mellitus with foot ulcer (principal); L97.519 Non-pressure chronic ulcer of other part of right foot with unspecified severity; M06.9 Rheumatoid arthritis, unspecified; J43.9 Emphysema, unspecified; I10 Essential (primary) hypertension; K21.9 Gastro-esophageal reflux disease without esophagitis; G45.9 Transient cerebral ischemic attack, unspecified; J45.909 Unspecified asthma, uncomplicated; M81.0 Age-related osteoporosis without current pathological fracture; D64.9 Anemia, unspecified; Z86.19 Personal history of other infectious and parasitic diseases
CPT/HCPCS: 36416; 97602; A4218; J2001

== ENCOUNTER 2019-02-17 13:00 | Outpatient (CLI) | payer OTHER ==
--- NOTE | 2019-02-17 09:22 | PRG ---
DATE OF SERVICE: 02/17/2019 SUBJECTIVE HISTORY: Ms. Jennifer Quinteros is a very pleasant 58-year-old, who presents to the Wound Center for evaluation of an ulceration of the plantar surface of the right great toe. At the time of a previous visit, the patient stated that the ulceration had healed completely. She stated that she developed a callus associated with the healed ulceration, which she trimmed on her own with a razor. The patient also stated that she had been seen in the emergency department here at [facility] where plain films of the right foot were obtained, which showed no evidence of bone infection. Since the patient's last visit, Ms. Quinteros has been performing dressing changes of Multidex powder for her ulceration. The patient has no other complaints today. She denies any fever or chills. PHYSICAL EXAMINATION: VITAL SIGNS: Temperature 97.8, pulse 79, respirations 16, and blood pressure 140/64. EXTREMITIES: An ulceration of the plantar surface of the right great toe is present, which measures approximately 0.8 x 0.4 cm. Granulation tissue is present within the wound margins. Callus desiccated tissue and undermining at the periphery of the wound were eliminated with the use of scissors. No purulent drainage is associated with the wound. No erythema of the skin surrounding the wound is present. No maceration of the skin of the periwound is noted. No significant edema of the right foot or right great toe is present on exam today. ASSESSMENT AND PLAN: 1. Ulceration of plantar surface of right great toe as described above. Dressing changes of Multidex powder will be continued on a daily basis after cleansing and irrigation. The patient will continue to perform her own dressing changes. Gauze will be utilized as the secondary dressing. I will see Ms. Quinteros again in 3 weeks. 2. Rheumatoid arthritis. 3. Transient ischemic attack x2. 4. Hypertension. 5. Gastroesophageal reflux disease. 6. Asthma. 7. Diabetes mellitus. Accu-Cheks will be obtained at the time of the patient's clinic visits. The patient has been reminded that for optimal wound healing, her blood glucoses should remain below 150. 8. Fibromyalgia. 9. History of hepatitis C. The patient previously stated that she completed treatment for hepatitis C, 5 to 6 years ago. 10. Osteoporosis. 11. Chronic obstructive pulmonary disease/emphysema. 12. Anemia. Job ID: [id number]
[~2019-02-17 13:00] MED LIST changes: -Lidocaine 2% PF 100 mg/5 ml Syringe ONE
== END 2019-02-17 13:01 | disposition home or self-care (01) ==
LOC: WCC 13:00
PROVIDERS: ATTEND Family Medicine
DX: E11.621 Type 2 diabetes mellitus with foot ulcer (principal); L97.519 Non-pressure chronic ulcer of other part of right foot with unspecified severity; M06.9 Rheumatoid arthritis, unspecified; G45.9 Transient cerebral ischemic attack, unspecified; I10 Essential (primary) hypertension; K21.9 Gastro-esophageal reflux disease without esophagitis; M79.7 Fibromyalgia; M81.0 Age-related osteoporosis without current pathological fracture; D64.9 Anemia, unspecified; J43.9 Emphysema, unspecified; Z86.19 Personal history of other infectious and parasitic diseases
CPT/HCPCS: A4218

== ENCOUNTER 2019-03-10 13:16 | Outpatient (CLI) | payer OTHER ==
--- NOTE | 2019-03-10 09:33 | PRG ---
DATE OF SERVICE: 03/10/2019 HISTORY: Ms. Jennifer Quinteros is a very pleasant 58-year-old, who presents to the Wound Center for evaluation of an ulceration at the plantar surface of the right great toe. At the time of the previous visit, the patient stated that the ulceration had healed completely. She stated that she developed a callus associated with the healed ulceration, which she trimmed on her own with a razor. The patient also stated that she had been seen in the emergency department here at [facility] where plain films of the right foot were obtained, which showed no evidence of bone infection. Since the patient's last visit, Ms. Quinteros has been performing dressing changes of Multidex powder for her ulceration. The patient has no other complaints today. She denies any fever or chills. PHYSICAL EXAMINATION: VITAL SIGNS: Temperature 97.8, pulse 80, respirations 18, blood pressure 191/80. Accu-Chek 136. EXTREMITIES: An ulceration of the plantar surface of the right great toe is present, which measures approximately 0.7 x 0.4 cm. The dimensions of the wound at the time of the patient's last visit were approximately 0.8 x 0.4 cm. Granulation tissue is present within the wound margins. Callus, desiccated tissue and undermining at the periphery of the wound were eliminated with the use of scissors. No purulent drainage is associated with the wound. No erythema of the skin surrounding the wound is present. No maceration of the skin of the periwound is noted. No significant edema of the right foot or right great toe is present on exam today. ASSESSMENT AND PLAN: 1. Ulceration of plantar surface of right great toe as described above. Dressing changes of Multidex powder will be continued on a daily basis after cleansing and irrigation. The patient will continue to perform her own dressing changes. Gauze will be utilized as a secondary dressing. The importance of offloading and achieving the healing of the ulceration has been discussed with Ms. Quinteros. I will see the patient again in 3 weeks. 2. Rheumatoid arthritis. 3. Transient ischemic attack x2. 4. Hypertension. 5. Gastroesophageal reflux disease. 6. Asthma. 7. Diabetes mellitus. The patient's Accu-Chek in clinic today is 136. The patient has been reminded that for optimal wound healing, her blood glucoses should remain below 150. 8. Fibromyalgia. 9. History of hepatitis C. The patient previously stated that she completed treatment for hepatitis C, 5 to 6 years ago. 10. Osteoporosis. 11. Chronic obstructive pulmonary disease/emphysema. 12. Anemia. Job ID: [id number]
[~2019-03-10 13:16] MED LIST changes: +Lidocaine 2% PF 100 mg/5 ml Syringe ONE
== END 2019-03-10 13:17 | disposition home or self-care (01) ==
LOC: WCC 13:16
PROVIDERS: ATTEND Family Medicine
DX: E11.621 Type 2 diabetes mellitus with foot ulcer (principal); L97.519 Non-pressure chronic ulcer of other part of right foot with unspecified severity; M06.9 Rheumatoid arthritis, unspecified; J45.909 Unspecified asthma, uncomplicated; I10 Essential (primary) hypertension; Z86.73 Personal history of transient ischemic attack (TIA), and cerebral infarction without residual deficits; K21.9 Gastro-esophageal reflux disease without esophagitis; M81.0 Age-related osteoporosis without current pathological fracture; J44.9 Chronic obstructive pulmonary disease, unspecified; M79.7 Fibromyalgia; Z86.19 Personal history of other infectious and parasitic diseases
CPT/HCPCS: 36416; 97602; A4218; J2001

== ENCOUNTER 2019-03-26 12:48 | Emergency (ER) | payer OTHER | END 2019-03-26 14:30 | disposition home or self-care (01) | LOC: ERS 12:48 | DX: J11.1 Influenza due to unidentified influenza virus with other respiratory manifestations (principal); E11.9 Type 2 diabetes mellitus without complications; E78.5 Hyperlipidemia, unspecified; E78.00 Pure hypercholesterolemia, unspecified; I10 Essential (primary) hypertension; J44.9 Chronic obstructive pulmonary disease, unspecified; F31.9 Bipolar disorder, unspecified; F25.9 Schizoaffective disorder, unspecified; Z87.891 Personal history of nicotine dependence; Z79.84 Long term (current) use of oral hypoglycemic drugs; Z79.899 Other long term (current) drug therapy | CPT/HCPCS: 87804; 99283 ==

== ENCOUNTER 2019-04-18 11:35 | Inpatient (IN) | payer OTHER, SELFPAY ==
--- NOTE | 2019-04-18 12:37 | RAD ---
EXAM: XR Foot Rt 3 View STANDARD PROVIDED CLINICAL HISTORY: Open wound COMPARISON: 11/30/2018 FINDINGS: Interval development of poorly marginated lytic changes at the medial aspects of the great toe proxim al phalanx distally and great toe distal phalanx proximally. Associated soft tissue gas is suspected. Postoperative changes involving the first metatarsal related to prior bunionectomy and first metatars al osteotomy are redemonstrated, stable. Extensive areas of bone infarction are again seen involving the hindfoot and lesser extent midfoot. Alignment appears anatomic. Joint spaces appear pre served. IMPRESSION: Lytic changes involving the great toe, compatible with osteomyelitis in the appropriate clinical sett ing.
[2019-04-18 12:43] LABS: #Basophils 0.1 thou/uL (0.0-0.2); #Eosinphils 0.1 thou/uL (0.0-0.7); #Lymphocytes 2.3 thou/uL (1.20-3.40); #Monocytes 1.5 thou/uL (0.11-0.59); #Neutrophils 7.8 thou/uL (1.40-6.50); %Basophils 0.5 % (0.0-1.0); %Eosinophils 1.3 % (0.0-10.0); %Lymphocytes 19.4 % (21.0-51.0); %Monocytes 12.6 % (0.0-10.0); %Neutrophils 66.1 % (42.0-75.0); Hemoglobin 12.5 g/dL (12.0-16.0); Mean Corpuscular HGB CONC 34.2 g/dL (32.0-36.0); Mean Corpuscular Hemoglobin 31.8 pg (27.0-31.0); Mean Platelet Volume 6.9 fL (7.4-10.4); Platelet Count 272 thou/uL (130-400); RBC Distribution Width 11.1 % (11.5-14.5); Red Blood Cell (RBC) Count 3.93 mill/uL (4.20-5.40); White Blood Cell (WBC) Count 11.7 thou/uL (4.8-10.8)
[2019-04-18 13:01] LABS: ALT (SGPT) 13 U/L (8-55); AST (SGOT) 12 U/L (5-34); Albumin 3.7 g/dL (3.5-5.0); Alkaline Phosphatase 57 U/L (40-110); Anion Gap 17 mmol/L (10-20); BUN (Urea Nitrogen) 5 mg/dL (9.8-20.1); Bilirubin, Total 0.3 mg/dL (0.2-1.2); Calc. Creatinine Clearance 0 mL/min (70-130); Calcium 9.8 mg/dL (7.8-10.44); Carbon Dioxide 19 mmol/L (22-29); Chloride 106 mmol/L (98-107); Estimated GFR-MDRD Greater than 90; Globulin 4.2 g/dL (2.4-3.5); Glucose 144 mg/dL (70-105); Potassium 3.6 mmol/L (3.5-5.1); Protein, Total 7.9 g/dL (6.0-8.3); Sodium 138 mmol/L (136-145)
[2019-04-18] MEDS ORDERED: MEROPENEM 1 GM/50 ML 1 GM in Premix Bag 1 BAG IVPB SCH ×2 (13:45→22:00)
[2019-04-18 13:59] LABS: Bilirubin Negative (Negative); Blood, Urine Negative (Negative); Clarity Clear (Clear); Glucose, Urine (Dipstick) Normal (Negative); Leukocyte Negative Leu/uL (Negative); Nitrite Negative (Negative); Protein, Urine (Dipstick) Negative (Neg-Trace); Urobilinogen Normal mg/dL (Less than 2)
[2019-04-18] MEDS ORDERED: Ondansetron PF 4 MG/2 ML Vial IVP PRN ×2 (15:24→15:40)
[2019-04-18] MEDS ORDERED: Ondansetron ODT 4 MG TAB SL PRN (15:24)
[2019-04-18] MEDS ORDERED: Sodium Chloride 0.9% 1,000 ML IV SCH (15:24)
[2019-04-18] MEDS ORDERED: Insulin Regular 300 UNITS/3 ML VIAL SC PRN (15:34)
[2019-04-18] MEDS ORDERED: Dextrose 5% in Water 1,000 ML IV PRN (15:34)
[2019-04-18] MEDS ORDERED: Dextrose 50% Abboject 50 ML SYRINGE SLOW IVP PRN (15:34)
[2019-04-18] MEDS ORDERED: Acetaminophen 325 MG TAB PO PRN (15:40)
[2019-04-18] MEDS ORDERED: Ondansetron ODT 4 MG TAB PO PRN (15:40)
[2019-04-18] MEDS ORDERED: Calcium Carbonate 500 MG ChewTAB PO PRN (15:40)
[2019-04-18] MEDS ORDERED: cloNIDine 0.1 MG TAB PO PRN (15:42)
[2019-04-18] MEDS ORDERED: Vancomycin HCl 1 GM in Premix Bag 1 BAG IVPB SCH (15:45)
[2019-04-18 16:01] VITALS: BMI 31.4
--- NOTE | 2019-04-18 16:02 | HP ---
PRIMARY CARE PHYSICIAN: [facility]. CHIEF COMPLAINT: Drainage from the foot ulcer. HISTORY OF PRESENT ILLNESS: The patient is a 58-year-old female with diabetes mellitus type 2 with chronic diabetic foot ulcer, followed by wound care, presented to the hospital with above complaints. The patient is followed by Dr. Yoon every three weeks. The patient missed her appointment three weeks ago. Last time, she was evaluated by Dr. Yoon was approximately six weeks. Over the past 1 to 2 weeks, the patient noticed increased purulent discharge along with pain, swelling, and redness of the right foot around the great toe. The pain was moderate to severe in intensity. It was worse on movement. The purulent discharge was malodorous. She denies any injury. No fever, chills, nausea, vomiting reported. PAST MEDICAL HISTORY: 1. Diabetes mellitus, type 2. 2. Hypertension. 3. Bipolar disorder. 4. Schizophrenia. 5. Chronic obstructive pulmonary disease. 6. Fibromyalgia. 7. History of hepatitis C. 8. History of TIA on aspirin. 9. Rheumatoid arthritis. 10. Mild intermittent asthma. PAST SURGICAL HISTORY: 1. Left total hip replacement. 2. Total abdominal hysterectomy and bilateral salpingo-oophorectomy. 3. Right total knee arthroplasty. 4. . 5. Right total hip replacement. 6. Left carpal tunnel release. 7. Right shoulder surgery. 8. Lipoma excision. 9. Left total knee arthroplasty. 10. Left foot surgery. ALLERGIES: THE PATIENT IS ALLERGIC TO IODINE. CURRENT HOME MEDICATIONS: The patient did not bring any of her medications today. She is unable to recall all the medications. She has not taken insulin recently per patient report. SOCIAL HISTORY: The patient currently lives at home with her family. She drinks alcohol socially. She quit smoking in the last 1 to 2 years. She has more than [id number] smoking history. FAMILY HISTORY: Positive for diabetes mellitus type 2. REVIEW OF SYSTEMS: All other review of systems was reviewed and were found negative. PHYSICAL EXAMINATION: VITAL SIGNS: Temperature 98.7, respirations 18, pulse of 91 with blood pressure 164/80 with O2 saturation 96% on room air. GENERAL: A 58-year-old female in mild distress due to pain. HEENT: Head, atraumatic and normocephalic. Sclerae anicteric. Moist mucous membranes. No oral lesion. NECK: Supple. No JVD appreciated. No carotid bruit. LUNGS: Clear to auscultation bilaterally. No wheezing, rales, rhonchi. HEART: S1, S2 present. Regular rate and rhythm. No rubs or gallops. ABDOMEN: Soft, nontender. Bowel sounds present. EXTREMITIES: There is no calf tenderness. There is significant swelling around the right toe with ulcer over the medial aspect of the greater toe approximately 1 cm in diameter with raised edges. It was warm to touch. There was purulent discharge. SKIN: As discussed above. LYMPH NODES: No palpable lymph nodes in the neck. PERIPHERAL VASCULAR: Radial pulses were palpable bilaterally. Dorsalis pedis pulses were diminished in the right lower extremity. NEUROLOGIC: Grossly nonfocal. Moves all 4 extremities. PSYCHIATRY: Alert, awake, and oriented x3. LABORATORY FINDINGS: WBC 11.7 with hemoglobin 12.5, hematocrit 36.5, platelet 272. Chemistry showed sodium 138, potassium 3.6, chloride 106, bicarb 19, BUN 5, creatinine 0.75, glucose of 144. LFTs in normal range. CRP 12.2. Lactic acid 2.5. Urinalysis was negative. Blood cultures have been obtained. X-ray of the foot by my review was negative for subcutaneous gas. There were lytic changes involving the great toe compatible with osteomyelitis. IMPRESSION: 1. Sepsis secondary to diabetic foot infection with right great toe osteomyelitis. 2. Diabetes mellitus type 2. 3. Lactic acidosis secondary to sepsis. 4. Hypertension. 5. Schizophrenia/bipolar disorder. 6. Chronic obstructive pulmonary disease. 7. Gastroesophageal reflux disease. 8. Fibromyalgia. 9. History of chronic hepatitis C. 10. Former smoker. 11. Suspected peripheral vascular disease. 12. History of transient ischemic attack on aspirin. 13. History of rheumatoid arthritis. 14. Diabetic neuropathy. PLAN: The patient will be monitored on the medical floor. Infectious Disease will be consulted. We will start her on vancomycin and Zosyn for empiric coverage. We will check hemoglobin A1c. Monitor vancomycin level. Repeat lactic acid. Insulin sliding scale. We will resume home medications once verified. Resume low-dose aspirin. Plan of care was discussed with the patient in detail. She stated understanding. Job ID: [id number]
[2019-04-18 16:46] LABS: Lactic Acid 1.3 mmol/L (0.5-2.2)
[2019-04-18] MEDS: Sodium Chloride 0.9% 1,000 ML IV SCH (16:52)
[2019-04-18] MEDS: HYDROcodone/Acetaminophen 5/325 mg Tablet PO PRN ×2 (16:53→20:39)
[2019-04-18] MEDS: Piperacillin/Tazobactam 3.375 GM in Sodium Chloride 0.9% 100 ML IVPB SCH (16:55)
[2019-04-18] MEDS: Carvedilol 6.25 MG TAB PO SCH (16:57)
--- NOTE | 2019-04-18 20:07 | ULT ---
BILATERAL LOWER EXTREMITY ARTERIAL DOPPLER EXAM: History: Right toe ulcer, absent pulses. FINDINGS: RIGHT: Common femoral artery peak systolic velocity 91 cm/sec, profunda femoral 54, proximal superficial fem oral 117, mid 79, distal 90, popliteal 71, anterior tibial 32, posterior tibial 46, and dorsalis pedi s 53. LEFT: Common femoral artery peak systolic velocity 200 cm/sec, profunda femoral 86, proximal superficial fe moral 141, mid 127, distal 138, popliteal 101, anterior tibial 125, posterior tibial 90, and dorsalis pedis 33. Monophasic waveform pattern, especially on the right. Biphasic waveform pattern within the thigh alexei on on the left and monophasic distal. IMPRESSION: 1.Mildly reduced velocities of the right common femoral artery with areas suggesting mild narrowing a long the course of the superficial femoral artery. 2. Elevated velocities of the left common femoral artery suggesting a moderate proximal stenosis, gen eralized elevated velocities are seen throughout the left leg. Further evaluation of these findings with CT angiography may be beneficial. POS: NIMESH
[2019-04-18] MEDS: Famotidine 20 MG TAB PO SCH (20:39)
[2019-04-18] MEDS: Senokot S 8.6-50 MG TAB PO SCH (20:39)
--- NOTE | 2019-04-18 21:40 | CON ---
DATE OF CONSULTATION: 04/18/2019 REASON FOR CONSULTATION: Right first toe infection. HISTORY OF PRESENT ILLNESS: A 58-year-old with history of type 2 diabetes, hypertension, chronic smoking, moderate obstructive lung disease, who developed an ulcer at the bottom aspect of the right hallux about a year before admission. She was managed by Wound Care. The last progress note from Dr. Yoon is from February of this year and no major abnormalities were found other than the ulcerated area without evidence of bone infection. The patient had a bone scan done in October of this year, which did not show any evidence of significant deep inflammatory process. Unfortunately, the patient noticed worsening of the drainage with odor, and x- rays demonstrated osteolysis of the proximal phalanx and distal phalanx, and she was admitted for management. Currently, she is awake. Denies any headaches, visual symptoms, sore throat, odynophagia, or dysphagia. No cough, sputum production, or chest pain. No back pain. No abdominal pain or diarrhea. Voiding without difficulty. No joint symptoms outside the involved area. No neurological symptoms. PAST MEDICAL HISTORY: Type 2 diabetes, prior chronic smoking, hyperlipidemia, neuropathy, chronic ulcer of right hallux, rheumatoid arthritis, CVA without deficits, COPD, [id number], and treated hepatitis C. SOCIAL HISTORY: Works with home health. Quit smoking two years ago. No drug use or alcoholic beverage use. There is a history of schizoaffective disorder. ALLERGIES: IODINE COMPOUNDS. FAMILY HISTORY: Diabetes type 2. CURRENT MEDICATIONS: P.r.n. medications; 1. Coreg. 2. Catapres. 3. Lovenox. 4. Pepcid. 5. Glucagon. 6. Insulin. 7. Meropenem. 8. Zosyn. 9. Vancomycin. PHYSICAL EXAMINATION: VITAL SIGNS: Temperature max 99.5, BP 150/84, pulse 89, respirations 16. SKIN: The patient has an ulcer in the medial aspect of the proximal right DIP skin site. The ulcer is kind of oval shaped, measuring 0.6 cm in length and 2 mm in diameter. I was able to touch bone with Q-tip, so there is bone exposure at the bottom of the ulcer. The base of the ulcer is mostly white tissue. There is odor associated with it. There is erythema surrounding the area all the way to the middle of the metatarsal. No lymphadenopathy. HEENT: Ocular movements conjugate. Sclerae white. Pupils are equal. Conjunctivae normal. Nasal passages patent. Oral cavity with quite a few missing teeth. Dental plates. Oral mucosa normal. NECK: Supple. No jugular vein distention or carotid bruits. No thyromegaly. LUNGS: Symmetric, clear breath sounds. HEART: S1 and S2, regular rate. No S3 or S4. ABDOMEN: Soft. Not distended or tender. No ascites. No bladder distention. EXTREMITIES: No joint inflammatory activity outside the involved area. I could not feel any popliteal or dorsalis pedis pulses on the right side. Left-sided DP is 1+. Cap refill appears to be around 3 to 4 seconds. NEUROLOGIC: No focal weakness. Cognitive function appears to be stable. Oriented. Follows commands. Speech is normal. LABORATORY DATA: Urinalysis normal. White cell count 11.7, hemoglobin 12.5, platelets 272 with 66% neutrophils. Creatinine 0.75. Liver profile normal. CRP 12.22, albumin 3.7. No culture data available at this time except there was influenza antigen, which was positive for influenza A from March 26, so this is a resolved case of influenza. ASSESSMENT AND PLAN: Peripheral vascular disease associated with type 2 diabetes and a chronic ulcer in the medial aspect of the right hallux associated with osteomyelitis, both by clinical exam as well as by radiology study. The area is located in the distal proximal phalanx and proximal distal phalanx. DISCUSSION: Initially, we will order an arterial US R lower extremity Continue broad-spectrum coverage, and once the ultrasound is available and she has adequate blood supply identified, then the surgical intervention would be recommended. The procedure could be either an amputation of the toe or limited debridement of the bone involved with the intention of preserving the toe followed by antimicrobial therapy for protracted periods of time. Usually, in this location, the surgical option is amputation if the arterial supply is adequate. If she does not have adequate arterial supply, then she would need a vascular evaluation to see should if she would be amenable to revascularization of the site to avoid the higher levels of amputation from failure of wound healing. Job ID: [id number] [facility]
[2019-04-19] MEDS: Piperacillin/Tazobactam 3.375 GM in Sodium Chloride 0.9% 100 ML IVPB SCH ×4 (00:37→18:28)
[2019-04-19] MEDS ORDERED: Vancomycin HCl 1.25 GM in Sodium Chloride 0.9% 250 ML 250 ML IVPB SCH (03:00)
[2019-04-19] MEDS: Sodium Chloride 0.9% 1,000 ML IV SCH ×2 (05:50→18:30)
[2019-04-19] MEDS: HYDROcodone/Acetaminophen 5/325 mg Tablet PO PRN ×3 (05:50→18:42)
[2019-04-19 06:12] LABS: Anion Gap 12 mmol/L (10-20); BUN (Urea Nitrogen) 6 mg/dL (9.8-20.1); Calc. Creatinine Clearance 104 mL/min (70-130); Calcium 8.5 mg/dL (7.8-10.44); Carbon Dioxide 20 mmol/L (22-29); Chloride 110 mmol/L (98-107); Estimated GFR-MDRD Greater than 90; Glucose 105 mg/dL (70-105); Magnesium 1.6 mg/dL (1.6-2.6); Potassium 3.6 mmol/L (3.5-5.1); Sodium 138 mmol/L (136-145)
[2019-04-19 06:21] LABS: Band 2 % (5-11); Eosinophils 1 % (0-10); Hemoglobin 10.8 g/dL (12.0-16.0); Lymphocytes 19 % (21-51); MDiff Complete? YES; Mean Corpuscular HGB CONC 33.1 g/dL (32.0-36.0); Mean Corpuscular Hemoglobin 31.2 pg (27.0-31.0); Mean Corpuscular Volume 94.2 fL (78.0-98.0); Mean Platelet Volume 7.2 fL (7.4-10.4); Monocytes 10 % (0-10); Neutrophil 68 % (42-75); Platelet Count 249 thou/uL (130-400); RBC Distribution Width 11.1 % (11.5-14.5); Red Blood Cell (RBC) Count 3.47 mill/uL (4.20-5.40); White Blood Cell (WBC) Count 8.9 thou/uL (4.8-10.8)
[2019-04-19] MEDS ORDERED: Magnesium 2 GM/50 ML 2 GM in Premix Bag 1 BAG IVPB SCH (08:15)
[2019-04-19] MEDS: Carvedilol 6.25 MG TAB PO SCH ×2 (08:35→18:29)
[2019-04-19] MEDS: Saccharomyces boulardii 250 MG CAP PO SCH (08:35)
[2019-04-19] MEDS: Senokot S 8.6-50 MG TAB PO SCH ×2 (08:35→21:10)
[2019-04-19] MEDS: Famotidine 20 MG TAB PO SCH ×2 (08:35→21:09)
[2019-04-19] MEDS: Enoxaparin Sodium 40 MG/0.4 ML SYRINGE SC SCH (08:36)
[2019-04-19] MEDS: Aspirin 81 mg Enteric Coated Tablet PO SCH (08:36)
[2019-04-20] MEDS: Sodium Chloride 0.9% 1,000 ML IV SCH (00:39)
[2019-04-20] MEDS: Piperacillin/Tazobactam 3.375 GM in Sodium Chloride 0.9% 100 ML IVPB SCH ×5 (00:39→23:43)
--- NOTE | 2019-04-20 07:34 | PDOC.HOSPP ---
- Subjective Encounter Date: 04/19/19 Encounter Time: 09:00 Subjective: Patient seen and examined for Osteomyelitis. Pain controlled. No new complaints. No overnight events - Objective Vital Signs & Weight: Vital Signs (12 hours) Temp Pulse Resp BP Pulse Ox 04/19/19 21:00 98.6 F 80 18 117/72 95 04/19/19 20:00 95 Weight Admit Weight 166 lb 3.2 oz Weight 166 lb 3.2 oz I&O: 04/19/19 04/20/19 04/21/19 06:59 06:59 06:59 Intake Total 1620 Balance 1620 Result Diagrams: 04/19/19 05:36 04/19/19 05:36 Additional Labs: Accuchecks 04/20/19 04/19/19 04/19/19 05:44 21:18 16:22 POC Glucose 114 H 159 H 115 H 04/19/19 12:17 POC Glucose 167 H Microbiology 04/18/19 13:33 Venous blood - Right Arm Blood Culture - Preliminary Specimen has been received and culture in progress. No Growth to date. 04/18/19 13:33 Venous blood - Left Hand Blood Culture - Preliminary Gram Positive Cocci Radiology Reviewed by me: Yes (XR - Osteo, Doppler - PVD) Hospitalist ROS - Review of Systems Respiratory: denies: cough, dry, shortness of breath, hemoptysis, SOB with excertion, pleuritic pain, sputum, wheezing, other Cardiovascular: denies: chest pain, palpitations, orthopnea, paroxysmal noc. dyspnea, edema, light headedness, other Gastrointestinal: denies: nausea, vomiting, abdominal pain, diarrhea, constipation, melena, hematochezia, other - Medication Medications: Active Medications Generic Name Dose Route Start Last Admin Trade Name Freq PRN Reason Stop Dose Admin Acetaminophen 650 mg 04/18/19 15:40 04/18/19 19:08 Tylenol PO 650 mg Q4H PRN Administration Headache/Fever/Mild Pain (1-3) Hydrocodone Bitart/Acetaminophen 1 tab 04/18/19 15:40 04/19/19 18:42 [place] 5/325 PO 1 tab Q4H PRN Administration Moderate Pain (4-6) Aspirin 81 mg 04/19/19 09:00 04/19/19 08:36 Ecotrin PO 81 mg DAILY VINCE Administration Carvedilol 12.5 mg 04/18/19 17:00 04/19/19 18:29 Coreg PO 12.5 mg BID-WM VINCE Administration Enoxaparin Sodium 40 mg 04/19/19 09:00 04/19/19 08:36 Lovenox SC 40 mg 0900 VINCE Administration Famotidine 20 mg 04/18/19 21:00 04/19/19 21:09 Pepcid PO 20 mg BID VINCE Administration Sodium Chloride 1,000 mls @ 75 mls/hr 04/18/19 15:45 04/20/19 00:39 Normal Saline 0.9% IV 1,000 mls .[id number] VINCE Administration Piperacillin Sod/Tazobactam 100 mls @ 200 mls/hr 04/18/19 18:00 04/20/19 05: 37 Sod 3.375 gm/ Sodium Chloride IVPB 100 mls Q6HR VINCE Administration Saccharomyces Boulardii 250 mg 04/19/19 09:00 04/19/19 08:35 Florastor PO 250 mg DAILY VINCE Administration Senna/Docusate Sodium 1 tab 04/18/19 21:00 04/19/19 21:10 Senokot S PO Not Given BID VINCE - Exam General Appearance: NAD Heart: RRR, no murmur, no gallops, no rubs Respiratory: CTAB, no rales, no ronchi, normal chest expansion Gastrointestinal: soft, non-tender, non-distended, normal bowel sounds Extremities: no edema Extremities - other findings: wound dressing + Psychiatric: normal affect, A&O x 3 Hosp A/P - Plan 1. Sepsis secondary to diabetic foot infection with right great toe osteomyelitis/GPC bacteremia. 2. Diabetes mellitus type 2. 3. Lactic acidosis secondary to sepsis. 4. Hypertension. 5. Hypomagnesaemia. 6. PVD. 7. GERD. 8. Fibromyalgia. 9. History of chronic hepatitis C. 10. Former smoker. 11. Schizophrenia/bipolar disorder. 12. History of transient ischemic attack on aspirin. 13. History of rheumatoid arthritis. 14. Diabetic neuropathy. PLAN: Replace Magnesium Cont IV Zosyn Restart Vancomycin ID input appreciated Cont other meds Further Atbx recs per ID
[2019-04-20] MEDS: Senokot S 8.6-50 MG TAB PO SCH ×2 (08:24→20:09)
[2019-04-20] MEDS: Enoxaparin Sodium 40 MG/0.4 ML SYRINGE SC SCH (08:24)
[2019-04-20] MEDS: HYDROcodone/Acetaminophen 5/325 mg Tablet PO PRN ×2 (08:25→17:38)
[2019-04-20] MEDS: Carvedilol 6.25 MG TAB PO SCH ×2 (08:25→17:38)
[2019-04-20] MEDS: Famotidine 20 MG TAB PO SCH ×2 (08:25→20:08)
[2019-04-20] MEDS: Saccharomyces boulardii 250 MG CAP PO SCH (08:25)
[2019-04-20] MEDS: Aspirin 81 mg Enteric Coated Tablet PO SCH (08:25)
[2019-04-20] MEDS ORDERED: Sodium Chloride 0.9% 1,000 ML IV SCH (14:34)
--- NOTE | 2019-04-20 18:46 | PDOC.HOSPP ---
- Subjective Encounter Date: 04/20/19 Encounter Time: 16:30 Subjective: Patient seen and examined for Sepsis. No fever or chills. No new complaints. No overnight events - Objective Vital Signs & Weight: Vital Signs (12 hours) Temp Pulse Resp BP BP Pulse Ox 04/20/19 17:38 125/83 04/20/19 17:37 99.4 F 90 20 125/83 96 04/20/19 08:25 153/82 H 04/20/19 08:21 97 04/20/19 07:59 99.2 F 75 18 153/82 H 97 Weight Admit Weight 166 lb 3.2 oz Weight 166 lb 3.2 oz I&O: 04/19/19 04/20/19 04/21/19 06:59 06:59 06:59 Intake Total 1620 1999 Output Total 1999 Balance 1620 0 Result Diagrams: 04/19/19 05:36 04/19/19 05:36 Additional Labs: Accuchecks 04/20/19 04/20/19 04/20/19 15:58 11:44 05:44 POC Glucose 118 H 166 H 114 H 04/19/19 21:18 POC Glucose 159 H Hospitalist ROS - Review of Systems Respiratory: denies: cough, dry, shortness of breath, hemoptysis, SOB with excertion, pleuritic pain, sputum, wheezing, other Cardiovascular: denies: chest pain, palpitations, orthopnea, paroxysmal noc. dyspnea, edema, light headedness, other - Medication Medications: Active Medications Generic Name Dose Route Start Last Admin Trade Name Freq PRN Reason Stop Dose Admin Acetaminophen 650 mg 04/18/19 15:40 04/18/19 19:08 Tylenol PO 650 mg Q4H PRN Administration Headache/Fever/Mild Pain (1-3) Hydrocodone Bitart/Acetaminophen 1 tab 04/18/19 15:40 04/20/19 17:38 [place] 5/325 PO 1 tab Q4H PRN Administration Moderate Pain (4-6) Aspirin 81 mg 04/19/19 09:00 04/20/19 08:25 Ecotrin PO 81 mg DAILY VINCE Administration Carvedilol 12.5 mg 04/18/19 17:00 04/20/19 17:38 Coreg PO 12.5 mg BID-WM VINCE Administration Enoxaparin Sodium 40 mg 04/19/19 09:00 04/20/19 08:24 Lovenox SC 40 mg 0900 VINCE Administration Famotidine 20 mg 04/18/19 21:00 04/20/19 08:25 Pepcid PO 20 mg BID VINCE Administration Piperacillin Sod/Tazobactam 100 mls @ 200 mls/hr 04/18/19 18:00 04/20/19 17: 37 Sod 3.375 gm/ Sodium Chloride IVPB 100 mls Q6HR VINCE Administration Sodium Chloride 1,000 mls @ 50 mls/hr 04/20/19 14:34 04/20/19 14:46 Normal Saline 0.9% IV 04/21/19 06:00 1,000 mls .Q20H VINCE Administration Saccharomyces Boulardii 250 mg 04/19/19 09:00 04/20/19 08:25 Florastor PO 250 mg DAILY VINCE Administration Senna/Docusate Sodium 1 tab 04/18/19 21:00 04/20/19 08:24 Senokot S PO Not Given BID VINCE - Exam General Appearance: NAD Neck: supple, no JVD Heart: RRR, no gallops Respiratory: no wheezes, no rales Gastrointestinal: soft, non-tender, normal bowel sounds Extremities: no cyanosis Extremities - other findings: improving erythema Hosp A/P - Plan DVT proph w/lovenox Sepsis secondary to diabetic foot infection with right great toe osteomyelitis. Diabetes mellitus type 2. Lactic acidosis secondary to sepsis. Hypertension. Hypomagnesaemia. PVD. GERD. Fibromyalgia. History of chronic hepatitis C. Former smoker. Schizophrenia/bipolar disorder. History of transient ischemic attack on aspirin. History of rheumatoid arthritis. Diabetic neuropathy. PLAN: Cont IV Zosyn Vancomycin dced per ID Cont wound care Await Podiatry input Cont other meds DC IVF after this bag
[2019-04-21] MEDS: Piperacillin/Tazobactam 3.375 GM in Sodium Chloride 0.9% 100 ML IVPB SCH ×4 (05:19→23:24)
[2019-04-21] MEDS: Senokot S 8.6-50 MG TAB PO SCH (08:30)
[2019-04-21] MEDS: Carvedilol 6.25 MG TAB PO SCH ×2 (08:30→16:08)
[2019-04-21] MEDS: Famotidine 20 MG TAB PO SCH ×2 (08:30→20:20)
[2019-04-21] MEDS: Aspirin 81 mg Enteric Coated Tablet PO SCH (08:30)
[2019-04-21] MEDS: Enoxaparin Sodium 40 MG/0.4 ML SYRINGE SC SCH (08:30)
[2019-04-21] MEDS: Saccharomyces boulardii 250 MG CAP PO SCH (08:30)
[2019-04-21] MEDS: HYDROcodone/Acetaminophen 5/325 mg Tablet PO PRN ×2 (10:14→20:20)
[2019-04-21] MEDS: Insulin Regular 300 UNITS/3 ML VIAL SC PRN (13:01)
[2019-04-21] MEDS ORDERED: cloNIDine 0.1 MG TAB PO PRN (16:21)
[2019-04-21] MEDS ORDERED: Polyethylene Glycol 3350 17 GM Packet PO PRN (16:22)
--- NOTE | 2019-04-21 16:24 | PDOC.HOSPP ---
- Subjective Encounter Date: 04/21/19 Encounter Time: 10:45 Subjective: Patient seen and examined for diabetic foot infection. No fever or chills. No new complaints. No overnight events - Objective Vital Signs & Weight: Vital Signs (12 hours) Temp Pulse Resp BP BP BP Pulse Ox 04/21/19 16:08 98.3 F 91 20 154/86 H 154/86 H 95 04/21/19 08:30 167/96 H 04/21/19 08:28 98 04/21/19 07:45 99 F 77 19 167/96 H 98 Weight Admit Weight 166 lb 3.2 oz Weight 166 lb 3.2 oz I&O: 04/20/19 04/21/19 04/22/19 06:59 06:59 06:59 Intake Total 2910 Output Total 1999 Balance 910 Result Diagrams: 04/19/19 05:36 04/19/19 05:36 Additional Labs: Accuchecks 04/21/19 04/21/19 04/20/19 11:56 05:15 19:53 POC Glucose 195 H 126 H 138 H Hospitalist ROS - Review of Systems Respiratory: denies: cough, dry, shortness of breath, hemoptysis, SOB with excertion, pleuritic pain, sputum, wheezing, other Cardiovascular: denies: chest pain, palpitations, orthopnea, paroxysmal noc. dyspnea, edema, light headedness, other - Medication Medications: Active Medications Generic Name Dose Route Start Last Admin Trade Name Freq PRN Reason Stop Dose Admin Acetaminophen 650 mg 04/18/19 15:40 04/18/19 19:08 Tylenol PO 650 mg Q4H PRN Administration Headache/Fever/Mild Pain (1-3) Hydrocodone Bitart/Acetaminophen 1 tab 04/18/19 15:40 04/21/19 10:14 [place] 5/325 PO 1 tab Q4H PRN Administration Moderate Pain (4-6) Aspirin 81 mg 04/19/19 09:00 04/21/19 08:30 Ecotrin PO 81 mg DAILY VINCE Administration Carvedilol 12.5 mg 04/18/19 17:00 04/21/19 16:08 Coreg PO 12.5 mg BID-WM VINCE Administration Enoxaparin Sodium 40 mg 04/19/19 09:00 04/21/19 08:30 Lovenox SC 40 mg 0900 VINCE Administration Famotidine 20 mg 04/18/19 21:00 04/21/19 08:30 Pepcid PO 20 mg BID VINCE Administration Piperacillin Sod/Tazobactam 100 mls @ 200 mls/hr 04/18/19 18:00 04/21/19 11: 44 Sod 3.375 gm/ Sodium Chloride IVPB 100 mls Q6HR VINCE Administration Insulin Human Regular 0 units 04/18/19 15:34 04/21/19 13:01 Humulin R SC 2 unit .MODERATE SLIDING SC PRN Administration Moderate Correctional Scale Saccharomyces Boulardii 250 mg 04/19/19 09:00 04/21/19 08:30 Florastor PO 250 mg DAILY VINCE Administration - Exam General Appearance: NAD Heart: RRR, no gallops Respiratory: CTAB, no rales Gastrointestinal: soft, non-tender, normal bowel sounds Extremities: no cyanosis, no clubbing Extremities - other findings: dressing + Hosp A/P - Plan DVT proph w/SCDs Sepsis secondary to diabetic foot infection with right great toe osteomyelitis. Diabetes mellitus type 2. Lactic acidosis secondary to sepsis. Hypertension. Hypomagnesaemia. PVD. GERD. Fibromyalgia. History of chronic hepatitis C. Former smoker. Schizophrenia/bipolar disorder. History of transient ischemic attack on aspirin. History of rheumatoid arthritis. Diabetic neuropathy. PLAN: Cont IV Zosyn with wound care Cont ASA/Coreg Await Podiatry input Cont other meds
[2019-04-21] MEDS: metFORMIN 500 MG TAB PO SCH (17:12)
[2019-04-22] MEDS: Piperacillin/Tazobactam 3.375 GM in Sodium Chloride 0.9% 100 ML IVPB SCH ×3 (05:43→18:10)
[2019-04-22 06:36] LABS: #Basophils 0.1 thou/uL (0.0-0.2); #Eosinphils 0.3 thou/uL (0.0-0.7); #Lymphocytes 2.1 thou/uL (1.20-3.40); %Basophils 0.8 % (0.0-1.0); %Eosinophils 3.3 % (0.0-10.0); %Monocytes 12.2 % (0.0-10.0); %Neutrophils 58.7 % (42.0-75.0); Hemoglobin 11.8 g/dL (12.0-16.0); Mean Corpuscular HGB CONC 33.4 g/dL (32.0-36.0); Mean Corpuscular Hemoglobin 30.8 pg (27.0-31.0); Mean Corpuscular Volume 92.3 fL (78.0-98.0); Mean Platelet Volume 6.6 fL (7.4-10.4); Platelet Count 305 thou/uL (130-400); RBC Distribution Width 11.1 % (11.5-14.5); Red Blood Cell (RBC) Count 3.83 mill/uL (4.20-5.40); White Blood Cell (WBC) Count 8.5 thou/uL (4.8-10.8)
[2019-04-22 06:56] LABS: Anion Gap 12 mmol/L (10-20); BUN (Urea Nitrogen) 10 mg/dL (9.8-20.1); Calc. Creatinine Clearance 97 mL/min (70-130); Calcium 9.6 mg/dL (7.8-10.44); Carbon Dioxide 26 mmol/L (22-29); Chloride 108 mmol/L (98-107); Estimated GFR-MDRD Greater than 90; Glucose 123 mg/dL (70-105); Potassium 3.7 mmol/L (3.5-5.1); Sodium 142 mmol/L (136-145)
[2019-04-22] MEDS: Aspirin 81 mg Enteric Coated Tablet PO SCH (08:38)
[2019-04-22] MEDS: Carvedilol 6.25 MG TAB PO SCH ×2 (08:38→18:09)
[2019-04-22] MEDS: Saccharomyces boulardii 250 MG CAP PO SCH (08:38)
[2019-04-22] MEDS: Famotidine 20 MG TAB PO SCH ×2 (08:38→20:39)
[2019-04-22] MEDS: metFORMIN 500 MG TAB PO SCH ×2 (08:38→18:10)
[2019-04-22] MEDS: Enoxaparin Sodium 40 MG/0.4 ML SYRINGE SC SCH ×2 (08:39→12:28)
[2019-04-22] MEDS: HYDROcodone/Acetaminophen 5/325 mg Tablet PO PRN ×3 (08:41→20:37)
--- NOTE | 2019-04-22 14:40 | PRG ---
DATE OF SERVICE: 04/22/2019 SUBJECTIVE: Denies any headaches. No dyspnea or shortness of breath. No diarrhea. No abdominal pain. The right foot area of inflammatory changes has improved. OBJECTIVE: VITAL SIGNS: She has been afebrile. T-max 99.2, BP 150/90, pulse 68, respirations 18, O2 saturation 94% to 96%. LUNGS: Clear. HEART: S1, S2, regular rate. ABDOMEN: Soft. Not distended. EXTREMITIES: Right foot inflammatory changes have improved markedly, but there is obvious abscess within the hallux and the ulcer is still there. There is an area, where it is bulging in the medial aspect of the right first toe with an obvious fluid collection under the skin. IMAGING DATA: The arterial ultrasound demonstrated mildly reduced velocities in the right common femoral artery and then elevated velocities in the left common femoral artery, and there is evidence of monophasic waveform, especially on the right. CT angiography was recommended. ASSESSMENT AND DISCUSSION: Peripheral vascular disease with below trifurcation disease, which is quite significant associated with osteomyelitis of the right first toe. There is likely an abscess within it as well. Although the inflammatory changes have improved, the patient needs amputation of the toe and will need a vascular study to see, if she would be amenable to some sort of revascularization of below the trifurcation, so a CT angio would be advisable. Continuation of antimicrobial therapy as currently. Job ID: [id number]
--- NOTE | 2019-04-22 16:08 | CON ---
DATE OF CONSULTATION: 04/22/2019 HISTORY OF PRESENT ILLNESS: Ms. Quinteros is a 58-year-old woman, who presents with right toe draining area of wet gangrene. She was noted on her examination that she did not have pulses in her right foot, but have a warm right foot. She had ultrasound performed, which showed some SFA disease. I have been asked to see her for vascular evaluation. Currently, she is resting comfortably in bed. She says she does have some claudication in her right calf with ambulation. PAST MEDICAL HISTORY: 1. Schizophrenia. 2. Iodine allergy. 3. Diabetes mellitus. 4. History of tobacco abuse in the past. 5. Dyslipidemia. 6. History of CVA in the past. 7. COPD. 8. Treated hepatitis C. SOCIAL HISTORY: She quit smoking 2 years ago. She does not use other drugs or alcohol. She works with [employer]. MEDICATIONS: Noted. ALLERGIES: IODINE CONTRAST. PHYSICAL EXAMINATION: LUNGS: Clear bilaterally. HEART: Rhythm is regular. ABDOMEN: Soft and nontender. EXTREMITIES: She has her right great toe wrapped. VASCULAR: She has palpable left femoral, dorsalis pedis, and posterior tibial pulses. On the right, she has a monophasic Doppler signal only in her dorsalis pedis and posterior tibial area. I cannot palpate a femoral pulse on the right either. ASSESSMENT AND PLAN: Probably inflow disease. I will plan for angiograms tomorrow with the left groin access initially, but she may need bilateral groin accesses. Risks, benefits, and options have been outlined with the patient. She is agreeable to proceed. Job ID: [id number]
--- NOTE | 2019-04-22 21:42 | PDOC.HOSPP ---
- Subjective Encounter Date: 04/22/19 Encounter Time: 11:00 Subjective: Patient seen and examined for Osteomyelitis. Pain controlled. No fever. No new complaints. No overnight events - Objective Vital Signs & Weight: Vital Signs (12 hours) Temp Pulse Resp BP BP Pulse Ox 04/22/19 20:04 98.6 F 74 18 156/92 H 97 04/22/19 16:13 98.9 F 67 18 172/96 H 94 L 04/22/19 11:27 98.4 F 68 18 150/90 H 94 L Weight Admit Weight 166 lb 3.2 oz Weight 166 lb 3.2 oz I&O: 04/21/19 04/22/19 04/23/19 06:59 06:59 06:59 Intake Total 2910 1930 Output Total 2000 1500 Balance 910 430 Result Diagrams: 04/22/19 06:17 04/22/19 06:17 Additional Labs: Accuchecks 04/22/19 04/22/19 04/22/19 20:04 16:20 11:33 POC Glucose 108 125 H 127 H 04/22/19 04:50 POC Glucose 121 H Hospitalist ROS - Review of Systems Respiratory: denies: cough, dry, shortness of breath, hemoptysis, SOB with excertion, pleuritic pain, sputum, wheezing, other Cardiovascular: denies: chest pain, palpitations, orthopnea, paroxysmal noc. dyspnea, edema, light headedness, other - Medication Medications: Active Medications Generic Name Dose Route Start Last Admin Trade Name Freq PRN Reason Stop Dose Admin Acetaminophen 650 mg 04/18/19 15:40 04/18/19 19:08 Tylenol PO 650 mg Q4H PRN Administration Headache/Fever/Mild Pain (1-3) Hydrocodone Bitart/Acetaminophen 1 tab 04/18/19 15:40 04/22/19 20:37 [place] 5/325 PO 1 tab Q4H PRN Administration Moderate Pain (4-6) Aspirin 81 mg 04/19/19 09:00 04/22/19 08:38 Ecotrin PO 81 mg DAILY VINCE Administration Carvedilol 12.5 mg 04/18/19 17:00 04/22/19 18:09 Coreg PO 12.5 mg BID-WM VINCE Administration Enoxaparin Sodium 40 mg 04/19/19 09:00 04/22/19 12:28 Lovenox SC 40 mg 0900 VINCE Administration Famotidine 20 mg 04/18/19 21:00 04/22/19 20:39 Pepcid PO 20 mg BID VINCE Administration Piperacillin Sod/Tazobactam 100 mls @ 200 mls/hr 04/18/19 18:00 04/22/19 18: 10 Sod 3.375 gm/ Sodium Chloride IVPB 100 mls Q6HR VINCE Administration Insulin Human Regular 0 units 04/18/19 15:34 04/21/19 13:01 Humulin R SC 2 unit .MODERATE SLIDING SC PRN Administration Moderate Correctional Scale Metformin HCl 500 mg 04/21/19 17:00 04/22/19 18:10 Glucophage PO 500 mg BID-WM VINCE Administration Saccharomyces Boulardii 250 mg 04/19/19 09:00 04/22/19 08:38 Florastor PO 250 mg DAILY VINCE Administration - Exam General Appearance: NAD Heart: RRR, no gallops Respiratory: CTAB, no rales, no ronchi Gastrointestinal: soft, non-tender, non-distended Extremities: no edema Extremities - other findings: Rt foot dressing + Hosp A/P - Plan DVT proph w/lovenox Sepsis secondary to diabetic foot infection with right great toe osteomyelitis. Diabetes mellitus type 2. Lactic acidosis secondary to sepsis. Hypertension. Hypomagnesaemia. PVD. GERD. Fibromyalgia. History of chronic hepatitis C. Former smoker. Schizophrenia/bipolar disorder. History of transient ischemic attack on aspirin. History of rheumatoid arthritis. Diabetic neuropathy. PLAN: Cont IV Zosyn with wound care Cont ASA/Coreg Consult CV per ID Cont other meds
[2019-04-23] MEDS: Piperacillin/Tazobactam 3.375 GM in Sodium Chloride 0.9% 100 ML IVPB SCH ×4 (00:08→17:12)
[2019-04-23] MEDS: diphenhydrAMINE 25 MG CAP PO SCH ×3 (05:58→17:16)
[2019-04-23] MEDS: predniSONE 5 MG TAB PO SCH ×2 (05:58→12:51)
[2019-04-23] MEDS: Saccharomyces boulardii 250 MG CAP PO SCH (08:15)
[2019-04-23] MEDS: Famotidine 20 MG TAB PO SCH ×2 (08:15→20:41)
[2019-04-23] MEDS: Aspirin 81 mg Enteric Coated Tablet PO SCH (08:15)
[2019-04-23] MEDS: Carvedilol 6.25 MG TAB PO SCH ×2 (08:16→17:10)
[2019-04-23] MEDS: HYDROcodone/Acetaminophen 5/325 mg Tablet PO PRN ×4 (08:22→22:00)
[2019-04-23] MEDS: Enoxaparin Sodium 40 MG/0.4 ML SYRINGE SC SCH (10:39)
[2019-04-23] MEDS ORDERED: Iopamidol 370 76% 50 ML VIAL FS ONE (11:50)
[2019-04-23] MEDS ORDERED: Heparin (Artline) 500 ML ONE (12:49)
[2019-04-23] MEDS ORDERED: Fentanyl 100 MCG/2 ML VIAL ONE (13:20)
[2019-04-23] MEDS ORDERED: Midazolam HCl 2 mg/2 ml Vial ONE (13:20)
[2019-04-23] MEDS ORDERED: Heparin 10,000 UNITS/1 ML VIAL ONE (14:02)
[2019-04-23] MEDS ORDERED: Promethazine HCl 25 MG in Sodium Chloride 0.9% 50 ML IVPB PRN (14:11)
[2019-04-23] MEDS ORDERED: hydrALAZINE 20 MG/ML VIAL SLOW IVP PRN ×2 (14:56)
--- NOTE | 2019-04-23 15:15 | OP ---
DATE OF PROCEDURE: 04/23/2019 PREOPERATIVE DIAGNOSIS: Peripheral vascular disease with right great toe gangrene. POSTOPERATIVE DIAGNOSIS: Right common iliac artery occlusion. PROCEDURES PERFORMED: 1. Abdominal aortogram. 2. Right external iliac artery angiogram with right leg runoff. 3. Right common iliac artery percutaneous transluminal angioplasty/stenting with an 8 x 37 Express LD stent taken to 10 mmHg pressure. TOTAL CONTRAST: 40 mL. TOTAL FLUORO TIME: 4.0 minutes. DESCRIPTION OF PROCEDURE: After consent was obtained, the patient was brought to recyclable materials collector, placed in supine position on recyclable materials collector table. Appropriate monitoring was placed. The patient was given 1 mg of Versed and 25 mcg of fentanyl for IV sedation. Groins were prepped and draped in usual sterile fashion. Using ultrasound guidance, the left common femoral artery was anesthetized with 1% lidocaine and percutaneously accessed. A 5-Norwegian sheath was placed. A Contra catheter was passed into the abdominal aorta. Abdominal aortogram was performed showing a right common iliac artery occlusion. A Contra catheter was dropped down to the aortic bifurcation and a second shot was taken under magnified views. The right common iliac artery was anesthetized using ultrasound guidance with 1% lidocaine. Access to common femoral artery was obtained with a micropuncture needle and wire. This was upsized to a 6-Norwegian Marker sheath. Using an angled Kennedy catheter and Bentson guidewire, the occluded area was crossed. The occlusion was crossed with the angled Kennedy catheter. The Bentson guidewire was exchanged for a Magic Torque guidewire. A long 6-Norwegian Marker sheath was then passed through the occlusion into the abdominal aorta. Intraluminal location was confirmed with hand-injected injection. 5000 units of heparin was given. An 8 x 37 balloon was selected. The balloon and stent were positioned and the marker sheath withdrawn. Inflation was performed to 10 mmHg. Followup angiogram showed an excellent result with no residual stenosis and good positioning of the stent just distal to the aortic bifurcation. Right leg runoff was then performed through the sheath showing no other areas of significant stenosis. The left access site was closed with a ProGlide with good result. The right access site was then closed with ProGlide with good result. The patient was transferred to the recovery area, to be kept at bed rest for 2 hours and then to the floor. The patient tolerated the procedure well. Job ID: [id number]
--- NOTE | 2019-04-23 18:08 | PDOC.HOSPP ---
- Subjective Encounter Date: 04/23/19 Encounter Time: 16:00 Subjective: Patient seen and examined for Osteomyelitis. s/p Rt Common Illiac artery angio/ stenting. No new complaints. No overnight events - Objective Vital Signs & Weight: Vital Signs (12 hours) Temp Pulse Resp BP Pulse Ox 04/23/19 08:00 98.3 F 88 18 131/82 94 L Weight Admit Weight 166 lb 3.2 oz Weight 166 lb 3.2 oz I&O: 04/22/19 04/23/19 04/24/19 06:59 06:59 06:59 Intake Total 1930 700 Output Total 1500 Balance 430 700 Result Diagrams: 04/22/19 06:17 04/22/19 06:17 Additional Labs: Accuchecks 04/23/19 04/23/19 04/23/19 16:40 11:50 04:58 POC Glucose 139 H 137 H 103 04/22/19 20:04 POC Glucose 108 Hospitalist ROS - Review of Systems Respiratory: denies: cough, dry, shortness of breath, hemoptysis, SOB with excertion, pleuritic pain, sputum, wheezing, other Cardiovascular: denies: chest pain, palpitations, orthopnea, paroxysmal noc. dyspnea, edema, light headedness, other - Medication Medications: Active Medications Generic Name Dose Route Start Last Admin Trade Name Freq PRN Reason Stop Dose Admin Acetaminophen 650 mg 04/18/19 15:40 04/18/19 19:08 Tylenol PO 650 mg Q4H PRN Administration Headache/Fever/Mild Pain (1-3) Hydrocodone Bitart/Acetaminophen 1 tab 04/18/19 15:40 04/23/19 17:10 [place] 5/325 PO 1 tab Q4H PRN Administration Moderate Pain (4-6) Carvedilol 12.5 mg 04/18/19 17:00 04/23/19 17:10 Coreg PO 12.5 mg BID-WM VINCE Administration Diphenhydramine HCl 25 mg 04/23/19 06:00 04/23/19 17:16 Benadryl PO 04/24/19 06:00 25 mg Q6H VINCE Administration Enoxaparin Sodium 40 mg 04/19/19 09:00 04/23/19 10:39 Lovenox SC 40 mg 0900 VINCE Administration Famotidine 20 mg 04/18/19 21:00 04/23/19 08:15 Pepcid PO 20 mg BID VINCE Administration Piperacillin Sod/Tazobactam 100 mls @ 200 mls/hr 04/18/19 18:00 04/23/19 17: 12 Sod 3.375 gm/ Sodium Chloride IVPB 100 mls Q6HR VINCE Administration Insulin Human Regular 0 units 04/18/19 15:34 04/21/19 13:01 Humulin R SC 2 unit .MODERATE SLIDING SC PRN Administration Moderate Correctional Scale Metformin HCl 500 mg 04/21/19 17:00 04/22/19 18:10 Glucophage PO 500 mg BID-WM VINCE Administration Prednisone 10 mg 04/23/19 06:00 04/23/19 05:58 Prednisone PO 10 mg 0600 VINCE Administration Prednisone 10 mg 04/23/19 13:00 04/23/19 12:51 Prednisone PO 10 mg 1300 VINCE Administration Saccharomyces Boulardii 250 mg 04/19/19 09:00 04/23/19 08:15 Florastor PO 250 mg DAILY VINCE Administration - Exam General Appearance: NAD Heart: RRR, no gallops Respiratory: CTAB, no rales Gastrointestinal: non-tender, normal bowel sounds Extremities: no edema Extremities - other findings: Rt foot dressing + Hosp A/P - Plan DVT proph w/lovenox Sepsis secondary to diabetic foot infection with right great toe osteomyelitis. PVD. s/p Rt Common Illiac artery angio/stenting 04/23 Diabetes mellitus type 2 with Diabetic neuropathy. Lactic acidosis secondary to sepsis. Hypertension. Hypomagnesaemia. GERD. Fibromyalgia. History of chronic hepatitis C. Former smoker. Schizophrenia/bipolar disorder. History of transient ischemic attack on aspirin. History of rheumatoid arthritis. PLAN: Cont IV Zosyn Cont wound care Cont 325 ASA/Coreg Await Podiatry input (No one furniture rental consultant) Cont other meds
[2019-04-23] MEDS ORDERED: predniSONE 20 MG TAB PO SCH (19:00)
[2019-04-24] MEDS: Piperacillin/Tazobactam 3.375 GM in Sodium Chloride 0.9% 100 ML IVPB SCH ×4 (00:07→17:13)
[2019-04-24] MEDS: diphenhydrAMINE 25 MG CAP PO SCH ×2 (00:13→05:23)
[2019-04-24] MEDS: predniSONE 5 MG TAB PO SCH ×2 (05:23→12:02)
[2019-04-24] MEDS: HYDROcodone/Acetaminophen 5/325 mg Tablet PO PRN ×3 (10:10→20:55)
[2019-04-24] MEDS: Famotidine 20 MG TAB PO SCH ×2 (10:12→20:56)
[2019-04-24] MEDS: Saccharomyces boulardii 250 MG CAP PO SCH (10:12)
[2019-04-24] MEDS: Aspirin 325 mg Enteric Coated Tablet PO SCH (10:12)
[2019-04-24] MEDS: Enoxaparin Sodium 40 MG/0.4 ML SYRINGE SC SCH (10:12)
[2019-04-24] MEDS: Carvedilol 6.25 MG TAB PO SCH ×2 (10:12→17:13)
[2019-04-24] MEDS: Insulin Regular 300 UNITS/3 ML VIAL SC PRN (12:04)
--- NOTE | 2019-04-24 17:41 | PDOC.HOSPP ---
- Subjective Encounter Date: 04/24/19 Encounter Time: 17:39 Subjective: Ms. Quinteros was seen today in follow-up of diabetic foot infection and PVD. She does not have any complaints, and is asking when she can go home. - Objective Vital Signs & Weight: Vital Signs (12 hours) Temp Pulse Resp BP BP Pulse Ox 04/24/19 17:13 160/90 H 04/24/19 17:11 160/90 H 04/24/19 11:00 98.8 F 74 18 127/76 96 04/24/19 10:12 127/81 04/24/19 09:00 96 04/24/19 08:00 98.5 F 84 18 127/81 96 Weight Admit Weight 166 lb 3.2 oz Weight 166 lb 3.2 oz I&O: 04/23/19 04/24/19 04/25/19 06:59 06:59 06:59 Intake Total 700 1200 1180 Balance 700 1200 1180 Result Diagrams: 04/22/19 06:17 04/22/19 06:17 Additional Labs: Accuchecks 04/24/19 04/24/19 04/24/19 17:03 11:28 05:08 POC Glucose 121 H 241 H 146 H 04/23/19 20:17 POC Glucose 202 H Hospitalist ROS - Medication Medications: Active Medications Generic Name Dose Route Start Last Admin Trade Name Freq PRN Reason Stop Dose Admin Acetaminophen 650 mg 04/18/19 15:40 04/18/19 19:08 Tylenol PO 650 mg Q4H PRN Administration Headache/Fever/Mild Pain (1-3) Hydrocodone Bitart/Acetaminophen 1 tab 04/18/19 15:40 04/24/19 14:13 [place] 5/325 PO 1 tab Q4H PRN Administration Moderate Pain (4-6) Aspirin 325 mg 04/24/19 09:00 04/24/19 10:12 Ecotrin PO 325 mg DAILY VINCE Administration Carvedilol 12.5 mg 04/18/19 17:00 04/24/19 17:13 Coreg PO 12.5 mg BID-WM VINCE Administration Enoxaparin Sodium 40 mg 04/19/19 09:00 04/24/19 10:12 Lovenox SC 40 mg 0900 VINCE Administration Famotidine 20 mg 04/18/19 21:00 04/24/19 10:12 Pepcid PO 20 mg BID VINCE Administration Piperacillin Sod/Tazobactam 100 mls @ 200 mls/hr 04/18/19 18:00 04/24/19 17: 13 Sod 3.375 gm/ Sodium Chloride IVPB 100 mls Q6HR VINCE Administration Insulin Human Regular 0 units 04/18/19 15:34 04/24/19 12:04 Humulin R SC 4 unit .MODERATE SLIDING SC PRN Administration Moderate Correctional Scale Insulin Human Regular 0 units 04/18/19 15:34 04/23/19 20:42 Humulin R SC 3 unit .BEDTIME SLIDING SC PRN Administration Bedtime Correctional Scale Metformin HCl 500 mg 04/21/19 17:00 04/22/19 18:10 Glucophage PO 500 mg BID-WM VINCE Administration Prednisone 10 mg 04/23/19 06:00 04/24/19 05:23 Prednisone PO 10 mg 0600 VINCE Administration Prednisone 10 mg 04/23/19 13:00 04/24/19 12:02 Prednisone PO 10 mg 1300 VINCE Administration Saccharomyces Boulardii 250 mg 04/19/19 09:00 04/24/19 10:12 Florastor PO 250 mg DAILY VINCE Administration - Exam Eye: PERRL, anicteric sclera Heart: RRR, no murmur, no gallops, no rubs, normal peripheral pulses Respiratory: CTAB, no wheezes, no rales, no ronchi, normal chest expansion, no tachypnea, normal percussion Gastrointestinal: soft, non-tender, non-distended, normal bowel sounds, no palpable masses, no hepatomegaly Extremities: no cyanosis, 1+ LE edema (trace pedal edema - right foot is dressed ) Hosp A/P (1) Diabetic ulcer of right foot Code(s): E11.621 - TYPE 2 DIABETES MELLITUS WITH FOOT ULCER; L97.519 - NON-PRS CHRONIC ULCER OTH PRT RIGHT FOOT W UNSP SEVERITY Status: Acute (2) Peripheral vascular disease due to secondary diabetes Code(s): E13.51 - OTH DIABETES W DIABETIC PERIPHERAL ANGIOPATHY W/O GANGRENE Status: Chronic (3) COPD (chronic obstructive pulmonary disease) Status: Chronic Qualifiers: COPD type: unspecified COPD (4) Hyperlipidemia Code(s): E78.5 - HYPERLIPIDEMIA, UNSPECIFIED Status: Chronic Qualifiers: Hyperlipidemia type: unspecified Qualified Code(s): E78.5 - Hyperlipidemia , unspecified (5) Hypertension Code(s): I10 - ESSENTIAL (PRIMARY) HYPERTENSION Status: Chronic Qualifiers: Hypertension type: essential hypertension Qualified Code(s): I10 - Essential (primary) hypertension - Plan * Diabetic foot ulcer- continue Zosyn * The toe will need either debridement or amputation- await Podiatry consult * DM- blood glucose is stable * HTN- blood pressure is a bit labile, but mostly acceptable * PVD- she is s/p angioplasty and STENT to the right common iliac
[2019-04-25] MEDS: Piperacillin/Tazobactam 3.375 GM in Sodium Chloride 0.9% 100 ML IVPB SCH ×4 (00:25→17:28)
[2019-04-25] MEDS: predniSONE 5 MG TAB PO SCH ×2 (05:36→12:14)
[2019-04-25 06:41] LABS: #Basophils 0.1 thou/uL (0.0-0.2); #Eosinphils 0.2 thou/uL (0.0-0.7); #Lymphocytes 2.5 thou/uL (1.20-3.40); #Monocytes 1.3 thou/uL (0.11-0.59); #Neutrophils 4.7 thou/uL (1.40-6.50); %Basophils 0.7 % (0.0-1.0); %Eosinophils 1.8 % (0.0-10.0); %Lymphocytes 28.9 % (21.0-51.0); %Monocytes 14.5 % (0.0-10.0); %Neutrophils 54.1 % (42.0-75.0); Hemoglobin 11.4 g/dL (12.0-16.0); Mean Corpuscular HGB CONC 33.5 g/dL (32.0-36.0); Mean Corpuscular Hemoglobin 31.1 pg (27.0-31.0); Platelet Count 323 thou/uL (130-400); RBC Distribution Width 11.2 % (11.5-14.5); Red Blood Cell (RBC) Count 3.66 mill/uL (4.20-5.40); White Blood Cell (WBC) Count 8.6 thou/uL (4.8-10.8)
[2019-04-25 06:59] LABS: Anion Gap 12 mmol/L (10-20); BUN (Urea Nitrogen) 12 mg/dL (9.8-20.1); Calc. Creatinine Clearance 99 mL/min (70-130); Calcium 8.9 mg/dL (7.8-10.44); Carbon Dioxide 27 mmol/L (22-29); Chloride 106 mmol/L (98-107); Estimated GFR-MDRD Greater than 90; Glucose 112 mg/dL (70-105); Potassium 3.3 mmol/L (3.5-5.1); Sodium 142 mmol/L (136-145)
[2019-04-25] MEDS: Saccharomyces boulardii 250 MG CAP PO SCH (08:26)
[2019-04-25] MEDS: Carvedilol 6.25 MG TAB PO SCH ×2 (08:26→17:29)
[2019-04-25] MEDS: Famotidine 20 MG TAB PO SCH ×2 (08:26→20:04)
[2019-04-25] MEDS: Aspirin 325 mg Enteric Coated Tablet PO SCH (08:26)
[2019-04-25] MEDS: Enoxaparin Sodium 40 MG/0.4 ML SYRINGE SC SCH (08:27)
[2019-04-25] MEDS: HYDROcodone/Acetaminophen 5/325 mg Tablet PO PRN ×2 (10:33→20:04)
[2019-04-25] MEDS: Insulin Regular 300 UNITS/3 ML VIAL SC PRN ×2 (12:15→17:29)
--- NOTE | 2019-04-25 15:59 | PDOC.HOSPP ---
- Subjective Encounter Date: 04/25/19 Encounter Time: 15:58 Subjective: Ms. Quinteros was seen today in follow-up of diabetic foot infection. She notes some stinging in the toe on the right foot. No other new complaints. - Objective Vital Signs & Weight: Vital Signs (12 hours) Temp Pulse Resp BP BP BP Pulse Ox 04/25/19 12:00 98.6 F 65 18 160/91 H 96 04/25/19 08:26 145/84 H 04/25/19 07:48 98.3 F 70 18 145/84 H 97 04/25/19 05:00 99 F 69 16 167/102 H 94 L 04/25/19 04:39 99.0 F 69 16 167/102 H 94 L Weight Admit Weight 166 lb 3.2 oz Weight 166 lb 3.2 oz I&O: 04/24/19 04/25/19 04/26/19 06:59 06:59 06:59 Intake Total 1200 1180 Balance 1200 1180 Result Diagrams: 04/25/19 06:11 04/25/19 06:11 Additional Labs: Accuchecks 04/25/19 04/25/19 04/24/19 11:31 04:45 19:41 POC Glucose 200 H 112 H 200 H 04/24/19 17:03 POC Glucose 121 H Hospitalist ROS - Medication Medications: Active Medications Generic Name Dose Route Start Last Admin Trade Name Freq PRN Reason Stop Dose Admin Acetaminophen 650 mg 04/18/19 15:40 04/18/19 19:08 Tylenol PO 650 mg Q4H PRN Administration Headache/Fever/Mild Pain (1-3) Hydrocodone Bitart/Acetaminophen 1 tab 04/18/19 15:40 04/25/19 10:33 [place] 5/325 PO 1 tab Q4H PRN Administration Moderate Pain (4-6) Aspirin 325 mg 04/24/19 09:00 04/25/19 08:26 Ecotrin PO 325 mg DAILY VINCE Administration Carvedilol 12.5 mg 04/18/19 17:00 04/25/19 08:26 Coreg PO 12.5 mg BID-WM VINCE Administration Enoxaparin Sodium 40 mg 04/19/19 09:00 04/25/19 08:27 Lovenox SC 40 mg 0900 VINCE Administration Famotidine 20 mg 04/18/19 21:00 04/25/19 08:26 Pepcid PO 20 mg BID VINCE Administration Piperacillin Sod/Tazobactam 100 mls @ 200 mls/hr 04/18/19 18:00 04/25/19 12: 14 Sod 3.375 gm/ Sodium Chloride IVPB 100 mls Q6HR VINCE Administration Insulin Human Regular 0 units 04/18/19 15:34 04/25/19 12:15 Humulin R SC 2 unit .MODERATE SLIDING SC PRN Administration Moderate Correctional Scale Insulin Human Regular 0 units 04/18/19 15:34 04/23/19 20:42 Humulin R SC 3 unit .BEDTIME SLIDING SC PRN Administration Bedtime Correctional Scale Metformin HCl 500 mg 04/21/19 17:00 04/22/19 18:10 Glucophage PO 500 mg BID-WM VINCE Administration Prednisone 10 mg 04/23/19 06:00 04/25/19 05:36 Prednisone PO 10 mg 0600 VINCE Administration Prednisone 10 mg 04/23/19 13:00 04/25/19 12:14 Prednisone PO 10 mg 1300 VINCE Administration Saccharomyces Boulardii 250 mg 04/19/19 09:00 04/25/19 08:26 Florastor PO 250 mg DAILY VINCE Administration - Exam Eye: PERRL Heart: RRR, no murmur, no gallops, no rubs, normal peripheral pulses Respiratory: CTAB, no wheezes, no rales, no ronchi, normal chest expansion Gastrointestinal: soft, non-tender, non-distended, normal bowel sounds, no palpable masses, no hepatomegaly Extremities: no cyanosis, 1+ LE edema (dorsalis pedis pulses are palpable bilaterally) Hosp A/P (1) Diabetic ulcer of right foot Code(s): E11.621 - TYPE 2 DIABETES MELLITUS WITH FOOT ULCER; L97.519 - NON-PRS CHRONIC ULCER OTH PRT RIGHT FOOT W UNSP SEVERITY Status: Acute (2) Peripheral vascular disease due to secondary diabetes Code(s): E13.51 - OTH DIABETES W DIABETIC PERIPHERAL ANGIOPATHY W/O GANGRENE Status: Chronic (3) COPD (chronic obstructive pulmonary disease) Status: Chronic Qualifiers: COPD type: unspecified COPD (4) Hyperlipidemia Code(s): E78.5 - HYPERLIPIDEMIA, UNSPECIFIED Status: Chronic Qualifiers: Hyperlipidemia type: unspecified Qualified Code(s): E78.5 - Hyperlipidemia , unspecified (5) Hypertension Code(s): I10 - ESSENTIAL (PRIMARY) HYPERTENSION Status: Chronic Qualifiers: Hypertension type: essential hypertension Qualified Code(s): I10 - Essential (primary) hypertension - Plan * Diabetic foot ulcer- continue Zosyn * Await Podiatry input- if not available by tomorrow, then general surgery consult * DM- blood glucose is stable * HTN- blood pressure is elevated- will add Amlodipine * PVD- she is s/p angioplasty and STENT to the right common iliac
[2019-04-25] MEDS ORDERED: Potassium Chloride 20 MEQ TAB PO SCH (16:15)
[2019-04-25] MEDS ORDERED: Amlodipine 5 MG TAB PO SCH (16:15)
[2019-04-26] MEDS: Piperacillin/Tazobactam 3.375 GM in Sodium Chloride 0.9% 100 ML IVPB SCH ×4 (00:25→23:50)
[2019-04-26] MEDS: predniSONE 5 MG TAB PO SCH ×2 (05:31→13:00)
[2019-04-26] MEDS: Carvedilol 6.25 MG TAB PO SCH ×2 (08:51→17:42)
[2019-04-26] MEDS: Famotidine 20 MG TAB PO SCH ×2 (08:51→21:00)
[2019-04-26] MEDS: Aspirin 325 mg Enteric Coated Tablet PO SCH (08:52)
[2019-04-26] MEDS: Enoxaparin Sodium 40 MG/0.4 ML SYRINGE SC SCH (08:52)
[2019-04-26] MEDS: metFORMIN 500 MG TAB PO SCH ×2 (08:52→17:42)
[2019-04-26] MEDS: Saccharomyces boulardii 250 MG CAP PO SCH (08:52)
[2019-04-26] MEDS: Amlodipine 5 MG TAB PO SCH (08:52)
[2019-04-26] MEDS: HYDROcodone/Acetaminophen 5/325 mg Tablet PO PRN ×2 (09:12→13:50)
[2019-04-26] MEDS ORDERED: PROPOFOL 200 MG/20 ML VIAL ONE (09:36)
[2019-04-26 09:54] LABS: Anion Gap 12 mmol/L (10-20); BUN (Urea Nitrogen) 13 mg/dL (9.8-20.1); Calc. Creatinine Clearance 94 mL/min (70-130); Calcium 9.4 mg/dL (7.8-10.44); Carbon Dioxide 26 mmol/L (22-29); Chloride 106 mmol/L (98-107); Estimated GFR-MDRD Greater than 90; Glucose 150 mg/dL (70-105); Potassium 3.7 mmol/L (3.5-5.1); Sodium 140 mmol/L (136-145)
--- NOTE | 2019-04-26 10:41 | CON ---
DATE OF CONSULTATION: HISTORY OF PRESENT ILLNESS: Jennifer Quinteros is a 58-year-old black female, lives in [place], , has osteomyelitis of her right great toe phalanx and PAD. She has been seen Dr. White and on 04/23 she underwent angiograms with CONTRIBUTION SOLICITOR, stenting of the right common iliac artery. She had good runoff to her foot. The patient does not smoke. She drinks beer occasionally. She is a diabetic. I have seen her in the past, excising the right postauricular cyst in the operating room. ALLERGIES: IODINE. SOCIAL HISTORY: Tobacco, none. Alcohol, socially. Occasional beer. MEDICATIONS: She takes insulin at home as well as aspirin, ferrous sulfate, topiramate, Coreg 25 mg b.i.d., metformin 500 mg b.i.d., amlodipine 5 mg daily, amitriptyline 50 mg at bedtime, lovastatin 20 mg at bedtime, lisinopril 20 mg a day, Protonix 40 mg a day. PAST SURGICAL HISTORY: 1. Left hip replacement. 2. Right total knee arthroplasty. 3. . 4. Hysterectomy. 5. CONTRIBUTION SOLICITOR of right common iliac artery with stenting by Dr. White on 04/23. 6. Complete BSO. 7. Right total hip replacement. 8. Carpal tunnel release, left. 9. Lipoma excision. 10. Right shoulder surgery. 11. Left total knee replacement. 12. Left foot surgery. PAST MEDICAL HISTORY: 1. Diabetes. 2. Hypertension. 3. Bipolar schizoaffective disorder. 4. Fibromyalgia. 5. History of hepatitis C. 6. History of TIA, on aspirin. 7. Rheumatoid arthritis. 8. Mild asthma. REVIEW OF SYSTEMS: Otherwise noncontributory. She has had a colonoscopy in the last few years. PHYSICAL EXAMINATION: VITAL SIGNS: Height 5 feet, weight 166 pounds, 31 BMI. Pulse 72, blood pressure 149/86. HEAD, EARS, EYES, NOSE, AND THROAT: Unremarkable. LUNGS: Clear to auscultation. CARDIAC: Regular rate and rhythm without murmur or gallop. ABDOMEN: Soft, nontender. EXTREMITIES: Palpable femoral, popliteal, pedal pulses of right foot. Abscess with purulent discharge in the sinus tract extending approximately 2 cm to the phalanx. ASSESSMENT AND PLAN: 1. Osteomyelitis, diabetic foot infection, right toe. We will plan amputation of the right great toe . She understands risks, benefits, and consents. 2. Peripheral artery disease, status post CONTRIBUTION SOLICITOR and stenting, right common iliac artery by Dr. Taye White 3 days ago. 3. Other medical problems as listed above. Job ID: [id number]
[2019-04-26] MEDS: Sodium Chloride 0.9% 1,000 ML IV SCH ×2 (10:52→23:51)
--- NOTE | 2019-04-26 17:02 | PDOC.HOSPP ---
- Subjective Encounter Date: 04/26/19 Encounter Time: 17:00 Subjective: Ms. Quinteros was seen today in follow-up of cellulitis and osteomyelitis of the first toe right foot. She does not have any new complaints. - Objective Vital Signs & Weight: Vital Signs (12 hours) Temp Pulse Resp BP BP BP Pulse Ox 04/26/19 15:15 98.3 F 99 16 154/89 H 98 04/26/19 10:57 98.3 F 71 16 143/87 H 97 04/26/19 08:52 72 149/86 H 04/26/19 08:51 149/86 H 04/26/19 07:50 95 04/26/19 07:12 98.3 F 72 18 149/86 H 95 04/26/19 05:00 98.7 F 79 18 97 Weight Admit Weight 166 lb 3.2 oz Weight 166 lb 3.2 oz I&O: 04/25/19 04/26/19 04/27/19 06:59 06:59 06:59 Intake Total 1180 1720 Balance 1180 1720 Result Diagrams: 04/25/19 06:11 04/26/19 08:48 Additional Labs: Accuchecks 04/26/19 04/26/19 04/25/19 11:45 04:05 19:37 POC Glucose 171 H 139 H 155 H Hospitalist ROS - Medication Medications: Active Medications Generic Name Dose Route Start Last Admin Trade Name Freq PRN Reason Stop Dose Admin Acetaminophen 650 mg 04/18/19 15:40 04/18/19 19:08 Tylenol PO 650 mg Q4H PRN Administration Headache/Fever/Mild Pain (1-3) Hydrocodone Bitart/Acetaminophen 1 tab 04/18/19 15:40 04/26/19 13:50 [place] 5/325 PO 1 tab Q4H PRN Administration Moderate Pain (4-6) Amlodipine Besylate 5 mg 04/26/19 09:00 04/26/19 08:52 Norvasc PO 5 mg DAILY VINCE Administration Aspirin 325 mg 04/24/19 09:00 04/26/19 08:52 Ecotrin PO 325 mg DAILY VINCE Administration Carvedilol 12.5 mg 04/18/19 17:00 04/26/19 08:51 Coreg PO 12.5 mg BID-WM VINCE Administration Enoxaparin Sodium 40 mg 04/19/19 09:00 04/26/19 08:52 Lovenox SC 40 mg 0900 VINCE Administration Famotidine 20 mg 04/18/19 21:00 04/26/19 08:51 Pepcid PO 20 mg BID VINCE Administration Piperacillin Sod/Tazobactam 100 mls @ 200 mls/hr 04/18/19 18:00 04/26/19 12: 14 Sod 3.375 gm/ Sodium Chloride IVPB 100 mls Q6HR VINCE Administration Sodium Chloride 1,000 mls @ 100 mls/hr 04/26/19 10:00 04/26/19 10:52 Normal Saline 0.9% IV 1,000 mls .Q10H VINCE Administration Insulin Human Regular 0 units 04/18/19 15:34 04/25/19 17:29 Humulin R SC 4 unit .MODERATE SLIDING SC PRN Administration Moderate Correctional Scale Insulin Human Regular 0 units 04/18/19 15:34 04/23/19 20:42 Humulin R SC 3 unit .BEDTIME SLIDING SC PRN Administration Bedtime Correctional Scale Metformin HCl 500 mg 04/21/19 17:00 04/26/19 08:52 Glucophage PO 500 mg BID-WM VINCE Administration Prednisone 10 mg 04/23/19 06:00 04/26/19 05:31 Prednisone PO 10 mg 0600 VINCE Administration Prednisone 10 mg 04/23/19 13:00 04/26/19 13:00 Prednisone PO Not Given 1300 [facility] Saccharomyces Boulardii 250 mg 04/19/19 09:00 04/26/19 08:52 Florastor PO 250 mg DAILY VINCE Administration - Exam Eye: PERRL Heart: RRR, no murmur, no gallops, no rubs, normal peripheral pulses Respiratory: CTAB, no wheezes, no rales, no ronchi, normal chest expansion, no tachypnea, normal percussion Gastrointestinal: soft, non-tender, non-distended, normal bowel sounds, no palpable masses, no hepatomegaly, no splenomegaly Extremities: no cyanosis, 1+ LE edema Hosp A/P (1) Diabetic ulcer of right foot Code(s): E11.621 - TYPE 2 DIABETES MELLITUS WITH FOOT ULCER; L97.519 - NON-PRS CHRONIC ULCER OTH PRT RIGHT FOOT W UNSP SEVERITY Status: Acute (2) Peripheral vascular disease due to secondary diabetes Code(s): E13.51 - OTH DIABETES W DIABETIC PERIPHERAL ANGIOPATHY W/O GANGRENE Status: Chronic (3) COPD (chronic obstructive pulmonary disease) Status: Chronic Qualifiers: COPD type: unspecified COPD (4) Hyperlipidemia Code(s): E78.5 - HYPERLIPIDEMIA, UNSPECIFIED Status: Chronic Qualifiers: Hyperlipidemia type: unspecified Qualified Code(s): E78.5 - Hyperlipidemia , unspecified (5) Hypertension Code(s): I10 - ESSENTIAL (PRIMARY) HYPERTENSION Status: Chronic Qualifiers: Hypertension type: essential hypertension Qualified Code(s): I10 - Essential (primary) hypertension - Plan * Diabetic foot ulcer- continue Zosyn * General surgery input appreciated- plan is for amputation of the affected toe today * DM- blood glucose is stable * HTN- blood pressure is elevated-but trending down- will continue Amlodipine * PVD- she is s/p angioplasty and STENT to the right common iliac
--- NOTE | 2019-04-26 17:08 | EKG ---
Test Reason : PREOP Blood Pressure : / mmHG Vent. Rate : 069 BPM Atrial Rate : 069 BPM P-R Int : 114 ms QRS Dur : 076 ms QT Int : 400 ms P-R-T Axes : -08 047 054 degrees QTc Int : 428 ms Normal sinus rhythm Normal ECG When compared with ECG of 30-APR-2017 22:13, No significant change was found Confirmed by DR. Gigi MITCHELL ([id number]) on 04/26/2019 5:08:37 PM Referred By: MARLA Confirmed By:DR. Gigi MITCHELL
[2019-04-26] MEDS ORDERED: Lidocaine 1% w/Epinephrine 1:100K 20 ML VIAL ONE (19:28)
[2019-04-26] MEDS ORDERED: Midazolam HCl 2 mg/2 ml Vial ONE (20:01)
[2019-04-26] MEDS ORDERED: Fentanyl 100 MCG/2 ML VIAL ONE ×3 (20:22→22:21)
[2019-04-26] MEDS ORDERED: Bupivacaine PF 0.5% 30 ML VIAL ONE (20:38)
[2019-04-26] MEDS ORDERED: Ondansetron HCl/PF 4 MG/2 ML Vial IVP PRN (22:02)
[2019-04-26] MEDS ORDERED: Promethazine HCl 25 MG/ML VIAL SLOW IVP PRN (22:02)
[2019-04-26] MEDS ORDERED: Promethazine HCl 25 MG/ML VIAL IM PRN (22:02)
[2019-04-26] MEDS ORDERED: Promethazine HCl 25 MG/ML VIAL ONE (22:10)
[2019-04-26] MEDS ORDERED: HYDROcodone/Acetaminophen 5/325 mg Tablet ONE (22:20)
[2019-04-26] MEDS ORDERED: hydrALAZINE 20 MG/ML VIAL ONE (22:34)
[2019-04-26] MEDS ORDERED: diphenhydrAMINE 50 MG/ML VIAL ONE (22:56)
[2019-04-26] MEDS ORDERED: Carvedilol 3.125 MG TAB ONE (23:13)
[2019-04-26] MEDS ORDERED: Carvedilol 6.25 MG TAB PO SCH (23:59)
[2019-04-27] MEDS: Piperacillin/Tazobactam 3.375 GM in Sodium Chloride 0.9% 100 ML IVPB SCH ×5 (00:02→23:19)
--- NOTE | 2019-04-27 02:17 | OP ---
DATE OF PROCEDURE: 04/26/2019 PREOPERATIVE DIAGNOSIS: Osteomyelitis, right great toe with diabetic foot infection. POSTOPERATIVE DIAGNOSIS: Osteomyelitis, right great toe with diabetic foot infection. PROCEDURE PERFORMED: Amputation of right great toe through the proximal phalanx. Wound left open for healing by secondary intention. Wound Care to place wound VAC tomorrow. Good blood supply, pulsatile bleeding. ANESTHESIA: General. DESCRIPTION OF PROCEDURE: Patient was taken to the operating room. Under anesthesia, right lower extremity was prepared with Betadine and draped in routine fashion. Amputation of the right great toe made with a fishmouth incision through the proximal phalanx, carried out skin and subcutaneous tissue, connective tissue debrided sharply. Tendons excised, bone transected with a bone cutter and resected proximally with a rongeur. Wound irrigated. Hemostasis gained with cautery. There was good pulsatile bleeding. Gauze dressing applied. Wound Care to place wound VAC tomorrow. Job ID: [id number]
[2019-04-27] MEDS: predniSONE 5 MG TAB PO SCH ×2 (05:26→12:25)
[2019-04-27] MEDS: Sodium Chloride 0.9% 1,000 ML IV SCH ×3 (05:27→17:18)
[2019-04-27] MEDS: HYDROcodone/Acetaminophen 5/325 mg Tablet PO PRN ×2 (09:17→12:25)
[2019-04-27] MEDS: Saccharomyces boulardii 250 MG CAP PO SCH (09:18)
[2019-04-27] MEDS: metFORMIN 500 MG TAB PO SCH ×2 (09:18→17:17)
[2019-04-27] MEDS: Carvedilol 6.25 MG TAB PO SCH ×2 (09:18→17:17)
[2019-04-27] MEDS: Aspirin 325 mg Enteric Coated Tablet PO SCH (09:18)
[2019-04-27] MEDS: Amlodipine 5 MG TAB PO SCH (09:18)
[2019-04-27] MEDS: Famotidine 20 MG TAB PO SCH ×2 (09:18→21:05)
[2019-04-27] MEDS: Enoxaparin Sodium 40 MG/0.4 ML SYRINGE SC SCH (09:19)
[2019-04-27] MEDS ORDERED: Morphine 2 MG/ML SYRINGE SLOW IVP PRN (13:53)
--- NOTE | 2019-04-27 16:42 | PDOC.HOSPP ---
- Subjective Encounter Date: 04/27/19 Encounter Time: 16:41 Subjective: Ms. Quinteros was seen today in follow-up of osteomyelitis of the toe. She notes some pain whichas not relieved with scheduled medications. - Objective Vital Signs & Weight: Vital Signs (12 hours) Temp Pulse Resp BP BP Pulse Ox 04/27/19 11:47 98.6 F 87 18 128/78 92 L 04/27/19 09:18 77 128/75 04/27/19 08:00 95 04/27/19 07:09 98.7 F 77 18 128/75 95 Weight Admit Weight 166 lb 3.2 oz Weight 166 lb 3.2 oz I&O: 04/26/19 04/27/19 04/28/19 06:59 06:59 06:59 Intake Total 1720 1525 Balance 1720 1525 Result Diagrams: 04/25/19 06:11 04/26/19 08:48 Additional Labs: Accuchecks 04/27/19 04/27/19 04/27/19 11:54 04:27 00:20 POC Glucose 142 H 106 152 H 04/26/19 16:53 POC Glucose 130 H Hospitalist ROS - Medication Medications: Active Medications Generic Name Dose Route Start Last Admin Trade Name Freq PRN Reason Stop Dose Admin Acetaminophen 650 mg 04/18/19 15:40 04/18/19 19:08 Tylenol PO 650 mg Q4H PRN Administration Headache/Fever/Mild Pain (1-3) Hydrocodone Bitart/Acetaminophen 1 tab 04/18/19 15:40 04/27/19 12:25 [place] 5/325 PO 1 tab Q4H PRN Administration Moderate Pain (4-6) Amlodipine Besylate 5 mg 04/26/19 09:00 04/27/19 09:18 Norvasc PO 5 mg DAILY VINCE Administration Aspirin 325 mg 04/24/19 09:00 04/27/19 09:18 Ecotrin PO 325 mg DAILY VINCE Administration Carvedilol 12.5 mg 04/18/19 17:00 04/27/19 09:18 Coreg PO 12.5 mg BID-WM VINCE Administration Enoxaparin Sodium 40 mg 04/19/19 09:00 04/27/19 09:19 Lovenox SC 40 mg 0900 VINCE Administration Famotidine 20 mg 04/18/19 21:00 04/27/19 09:18 Pepcid PO 20 mg BID VINCE Administration Piperacillin Sod/Tazobactam 100 mls @ 200 mls/hr 04/18/19 18:00 04/27/19 12: 25 Sod 3.375 gm/ Sodium Chloride IVPB 100 mls Q6HR VINCE Administration Sodium Chloride 1,000 mls @ 100 mls/hr 04/26/19 10:00 04/27/19 12:25 Normal Saline 0.9% IV 1,000 mls .Q10H VINCE Administration Insulin Human Regular 0 units 04/18/19 15:34 04/25/19 17:29 Humulin R SC 4 unit .MODERATE SLIDING SC PRN Administration Moderate Correctional Scale Insulin Human Regular 0 units 04/18/19 15:34 04/23/19 20:42 Humulin R SC 3 unit .BEDTIME SLIDING SC PRN Administration Bedtime Correctional Scale Metformin HCl 500 mg 04/21/19 17:00 04/27/19 09:18 Glucophage PO 500 mg BID-WM VINCE Administration Prednisone 10 mg 04/23/19 06:00 04/27/19 05:26 Prednisone PO 10 mg 0600 VINCE Administration Prednisone 10 mg 04/23/19 13:00 04/27/19 12:25 Prednisone PO 10 mg 1300 VINCE Administration Saccharomyces Boulardii 250 mg 04/19/19 09:00 04/27/19 09:18 Florastor PO 250 mg DAILY VINCE Administration - Exam Eye: PERRL Heart: RRR, no murmur, no gallops, no rubs, normal peripheral pulses Respiratory: CTAB, no wheezes, no rales, no ronchi, normal chest expansion Gastrointestinal: soft, non-tender, non-distended, normal bowel sounds, no palpable masses, no hepatomegaly Extremities: no cyanosis Hosp A/P (1) Diabetic ulcer of right foot Code(s): E11.621 - TYPE 2 DIABETES MELLITUS WITH FOOT ULCER; L97.519 - NON-PRS CHRONIC ULCER OTH PRT RIGHT FOOT W UNSP SEVERITY Status: Acute (2) Peripheral vascular disease due to secondary diabetes Code(s): E13.51 - OTH DIABETES W DIABETIC PERIPHERAL ANGIOPATHY W/O GANGRENE Status: Chronic (3) COPD (chronic obstructive pulmonary disease) Status: Chronic Qualifiers: COPD type: unspecified COPD (4) Hyperlipidemia Code(s): E78.5 - HYPERLIPIDEMIA, UNSPECIFIED Status: Chronic Qualifiers: Hyperlipidemia type: unspecified Qualified Code(s): E78.5 - Hyperlipidemia , unspecified (5) Hypertension Code(s): I10 - ESSENTIAL (PRIMARY) HYPERTENSION Status: Chronic Qualifiers: Hypertension type: essential hypertension Qualified Code(s): I10 - Essential (primary) hypertension - Plan * Diabetic foot ulcer with osteomyelitis of the toe- she is s/p amputation * Will need to determine on which antibiotic to be discharged * DM- blood glucose is stable * HTN- blood pressure is elevated-but trending down- will continue Amlodipine * PVD- she is s/p angioplasty and STENT to the right common iliac
[2019-04-27] MEDS: HYDROcodone/Acetaminophen 10/325 mg Tablet PO PRN ×2 (17:16→21:12)
[2019-04-27] MEDS: Insulin Regular 300 UNITS/3 ML VIAL SC PRN (17:21)
[2019-04-28] MEDS: HYDROcodone/Acetaminophen 10/325 mg Tablet PO PRN ×4 (01:18→20:04)
[2019-04-28] MEDS: Sodium Chloride 0.9% 1,000 ML IV SCH ×2 (01:18→11:34)
[2019-04-28] MEDS: Piperacillin/Tazobactam 3.375 GM in Sodium Chloride 0.9% 100 ML IVPB SCH ×2 (05:35→11:33)
[2019-04-28] MEDS: predniSONE 5 MG TAB PO SCH ×2 (05:36→11:34)
[2019-04-28] MEDS: Aspirin 325 mg Enteric Coated Tablet PO SCH (08:38)
[2019-04-28] MEDS: Saccharomyces boulardii 250 MG CAP PO SCH (08:38)
[2019-04-28] MEDS: Carvedilol 6.25 MG TAB PO SCH ×2 (08:38→16:58)
[2019-04-28] MEDS: Famotidine 20 MG TAB PO SCH ×2 (08:38→20:05)
[2019-04-28] MEDS: metFORMIN 500 MG TAB PO SCH ×2 (08:38→16:58)
[2019-04-28] MEDS: Amlodipine 5 MG TAB PO SCH (08:39)
[2019-04-28] MEDS: Enoxaparin Sodium 40 MG/0.4 ML SYRINGE SC SCH (08:39)
[2019-04-28] MEDS: Insulin Regular 300 UNITS/3 ML VIAL SC PRN (12:34)
[2019-04-28] MEDS ORDERED: Acetaminophen 500 MG TAB PO PRN (12:58)
--- NOTE | 2019-04-28 13:13 | PRG ---
DATE OF SERVICE: 04/28/2019 SUBJECTIVE: Ms. Quinteros is doing well today. She is seen in followup after amputation of her right great toe to the proximal phalanx with a wound VAC applied. Preoperatively, Dr. Taye White performed iliac artery angioplasty and stenting. She had good runoff to the foot. Blood cultures 1 out of 2, positive coagulase-negative Staph, probably contaminant. She is having a very little pain. PLAN: Plan at this time is to view her wound during the next wound VAC change. She can be discharged to home later this week on oral antibiotics for 10 to 14 days and to follow up in my office in 3 to 4 weeks. Job ID: [id number]
--- NOTE | 2019-04-28 14:27 | PRG ---
DATE OF SERVICE: 04/28/2019 SUBJECTIVE: Ms. Quinteros had resection of the right first toe and has a negative pressure dressing. The operative report was reviewed. Dr. Lorenzo performed the procedure, it was amputation of the right great toe with a fishmouth incision through the proximal phalanx. Tendons excised, bone transected, and wound irrigated. There was good pulsatile bleeding. The patient had before this procedure an intervention by Dr. White, where he did angioplasty with stent of the right common iliac artery. She currently is awake and alert. Denies any headaches. No shortness of breath or abdominal pain. Stools are loose, but not watery. She is voiding without difficulty. OBJECTIVE: VITAL SIGNS: Normal. She is afebrile. LUNGS: Clear. HEART: S1 and S2, regular rate. ABDOMEN: Soft, not distended or tender. No ascites. No bladder distention. SKIN: The wound after the amputation looks with fresh bleeding and clean tissues. No necrosis noted. MICROBIOLOGY: We do not have any microbiology that was submitted, we do not have anything reported yet, it may not have been submitted. White cell count is down from 11.7 to 8.6, hemoglobin 11.4, and creatinine 0.7. ASSESSMENT AND DISCUSSION: Peripheral vascular disease with below trifurcation disease status post angioplasty of proximal artery with improvement in flow, had amputation of the distal phalanx of the right first toe. The postop appearance is good and we do not have culture information, so I would say doxycycline and ciprofloxacin for at least 2 weeks. The end point would be good granulation tissue and discontinuation of negative pressure dressings. Because of peripheral vascular disease, there was a concern with recrudescence of inflammatory process and infection of the more proximal elements that remain in place. Job ID: [id number]
--- NOTE | 2019-04-28 14:27 | PDOC.HOSPP ---
- Subjective Encounter Date: 04/28/19 Encounter Time: 14:25 Subjective: Ms. Quinteros was seen today in follow-up of diaetic foot infection with osteomyelitis of the toe. She does not have any complaints today. She has had better pain control today. - Objective Vital Signs & Weight: Vital Signs (12 hours) Temp Pulse Resp BP BP Pulse Ox 04/28/19 08:39 82 149/80 H 04/28/19 08:38 149/80 H 04/28/19 08:00 95 04/28/19 07:39 98.3 F 82 18 149/80 H 93 L Weight Admit Weight 166 lb 3.2 oz Weight 166 lb 3.2 oz I&O: 04/27/19 04/28/19 04/29/19 06:59 06:59 06:59 Intake Total 1525 3905 Balance 1525 3905 Result Diagrams: 04/25/19 06:11 04/26/19 08:48 Additional Labs: Accuchecks 04/28/19 04/28/19 04/27/19 12:05 05:43 21:07 POC Glucose 232 H 115 H 98 04/27/19 17:02 POC Glucose 227 H Hospitalist ROS - Medication Medications: Active Medications Generic Name Dose Route Start Last Admin Trade Name Freq PRN Reason Stop Dose Admin Hydrocodone Bitart/Acetaminophen 1 tab 04/18/19 15:40 04/27/19 12:25 [place] 5/325 PO 1 tab Q4H PRN Administration Moderate Pain (4-6) Hydrocodone Bitart/Acetaminophen 1 tab 04/27/19 13:52 04/28/19 05:35 [place] 10/325 PO 1 tab Q4H PRN Administration Severe Pain (7-10) Amlodipine Besylate 5 mg 04/26/19 09:00 04/28/19 08:39 Norvasc PO 5 mg DAILY VINCE Administration Aspirin 325 mg 04/24/19 09:00 04/28/19 08:38 Ecotrin PO 325 mg DAILY VINCE Administration Carvedilol 12.5 mg 04/18/19 17:00 04/28/19 08:38 Coreg PO 12.5 mg BID-WM VINCE Administration Enoxaparin Sodium 40 mg 04/19/19 09:00 04/28/19 08:39 Lovenox SC 40 mg 09 VINCE Administration Famotidine 20 mg 04/18/19 21:00 04/28/19 08:38 Pepcid PO 20 mg BID VINCE Administration Sodium Chloride 1,000 mls @ 100 mls/hr 04/26/19 10:00 04/28/19 11:34 Normal Saline 0.9% IV 1,000 mls .Q10H VINCE Administration Insulin Human Regular 0 units 04/18/19 15:34 04/28/19 12:34 Humulin R SC 4 unit .MODERATE SLIDING SC PRN Administration Moderate Correctional Scale Insulin Human Regular 0 units 04/18/19 15:34 04/23/19 20:42 Humulin R SC 3 unit .BEDTIME SLIDING SC PRN Administration Bedtime Correctional Scale Metformin HCl 500 mg 04/21/19 17:00 04/28/19 08:38 Glucophage PO 500 mg BID-WM VINCE Administration Prednisone 10 mg 04/23/19 06:00 04/28/19 05:36 Prednisone PO 10 mg 0600 VINCE Administration Prednisone 10 mg 04/23/19 13:00 04/28/19 11:34 Prednisone PO 10 mg 1300 VINCE Administration Saccharomyces Boulardii 250 mg 04/19/19 09:00 04/28/19 08:38 Florastor PO 250 mg DAILY VINCE Administration - Exam Eye: PERRL Heart: RRR, no murmur, no gallops, no rubs, normal peripheral pulses Respiratory: CTAB, no wheezes, no rales, no ronchi, normal chest expansion, no tachypnea, normal percussion Gastrointestinal: soft, non-tender, non-distended, normal bowel sounds, no palpable masses, no hepatomegaly, no splenomegaly Extremities: no cyanosis, no clubbing, no edema Hosp A/P (1) Diabetic ulcer of right foot Code(s): E11.621 - TYPE 2 DIABETES MELLITUS WITH FOOT ULCER; L97.519 - NON-PRS CHRONIC ULCER OTH PRT RIGHT FOOT W UNSP SEVERITY Status: Acute (2) Peripheral vascular disease due to secondary diabetes Code(s): E13.51 - OTH DIABETES W DIABETIC PERIPHERAL ANGIOPATHY W/O GANGRENE Status: Chronic (3) COPD (chronic obstructive pulmonary disease) Status: Chronic Qualifiers: COPD type: unspecified COPD (4) Hyperlipidemia Code(s): E78.5 - HYPERLIPIDEMIA, UNSPECIFIED Status: Chronic Qualifiers: Hyperlipidemia type: unspecified Qualified Code(s): E78.5 - Hyperlipidemia , unspecified (5) Hypertension Code(s): I10 - ESSENTIAL (PRIMARY) HYPERTENSION Status: Chronic Qualifiers: Hypertension type: essential hypertension Qualified Code(s): I10 - Essential (primary) hypertension - Plan * Diabetic foot ulcer with osteomyelitis of the toe- she is s/p amputation * ID input appreciated- she has been transitioned to Cipro and Doxycycline * Plan is to re-evaluate the wound with the next dressing change * DM- blood glucose is stable * HTN- blood pressure is elevated-but trending down- will continue Amlodipine * PVD- she is s/p angioplasty and STENT to the right common iliac * Hopefully home soon
[2019-04-28] MEDS: Doxycycline 100 MG CAP PO SCH (20:05)
[2019-04-28] MEDS: Ciprofloxacin 500 MG TAB PO SCH (20:05)
[2019-04-29] MEDS: predniSONE 5 MG TAB PO SCH ×2 (06:12→11:59)
[2019-04-29] MEDS: Ciprofloxacin 500 MG TAB PO SCH ×2 (06:12→20:02)
[2019-04-29] MEDS: HYDROcodone/Acetaminophen 10/325 mg Tablet PO PRN ×3 (06:13→20:02)
[2019-04-29] MEDS: Sodium Chloride 0.9% 1,000 ML IV SCH ×2 (06:13→14:58)
[2019-04-29] MEDS: Famotidine 20 MG TAB PO SCH ×2 (09:03→20:02)
[2019-04-29] MEDS: Saccharomyces boulardii 250 MG CAP PO SCH (09:04)
[2019-04-29] MEDS: Carvedilol 6.25 MG TAB PO SCH ×2 (09:04→17:02)
[2019-04-29] MEDS: Amlodipine 5 MG TAB PO SCH (09:05)
[2019-04-29] MEDS: Doxycycline 100 MG CAP PO SCH ×2 (09:05→20:02)
[2019-04-29] MEDS: metFORMIN 500 MG TAB PO SCH ×2 (09:05→17:02)
[2019-04-29] MEDS: Aspirin 325 mg Enteric Coated Tablet PO SCH (09:05)
[2019-04-29] MEDS: Enoxaparin Sodium 40 MG/0.4 ML SYRINGE SC SCH (09:06)
--- NOTE | 2019-04-29 14:49 | PDOC.HOSPP ---
- Subjective Encounter Date: 04/29/19 Encounter Time: 14:46 Subjective: Ms. Quinteros was seen today in follow-up of diabetic foot infection with osteomyelitis. She does not have any new complaints. - Objective Vital Signs & Weight: Vital Signs (12 hours) Temp Pulse Resp BP BP Pulse Ox 04/29/19 09:05 74 144/83 H 04/29/19 09:04 144/83 H 04/29/19 08:00 94 L 04/29/19 07:40 98.5 F 74 18 144/83 H 94 L Weight Admit Weight 166 lb 3.2 oz Weight 166 lb 3.2 oz I&O: 04/28/19 04/29/19 04/30/19 06:59 06:59 06:59 Intake Total 3905 590 Balance 3905 590 Result Diagrams: 04/25/19 06:11 04/26/19 08:48 Additional Labs: Accuchecks 04/29/19 04/29/19 04/28/19 12:50 06:15 20:13 POC Glucose 175 H 109 169 H 04/28/19 16:07 POC Glucose 118 H Hospitalist ROS - Medication Medications: Active Medications Generic Name Dose Route Start Last Admin Trade Name Freq PRN Reason Stop Dose Admin Hydrocodone Bitart/Acetaminophen 1 tab 04/27/19 13:52 04/29/19 10:29 [place] 10/325 PO 1 tab Q4H PRN Administration Severe Pain (7-10) Amlodipine Besylate 5 mg 04/26/19 09:00 04/29/19 09:05 Norvasc PO 5 mg DAILY VINCE Administration Aspirin 325 mg 04/24/19 09:00 04/29/19 09:05 Ecotrin PO 325 mg DAILY VINCE Administration Carvedilol 12.5 mg 04/18/19 17:00 04/29/19 09:04 Coreg PO 12.5 mg BID-WM VINCE Administration Ciprofloxacin 500 mg 04/28/19 20:00 04/29/19 06:12 Cipro PO 500 mg BID@06,1999 VINCE Administration Doxycycline Hyclate 100 mg 04/28/19 21:00 04/29/19 09:05 Vibramycin PO 100 mg BID VINCE Administration Enoxaparin Sodium 40 mg 04/19/19 09:00 04/29/19 09:06 Lovenox SC 40 mg 899 VINCE Administration Famotidine 20 mg 04/18/19 21:00 04/29/19 09:03 Pepcid PO 20 mg BID VINCE Administration Sodium Chloride 1,000 mls @ 100 mls/hr 04/26/19 10:00 04/29/19 06:13 Normal Saline 0.9% IV 1,000 mls .Q10H VINCE Administration Insulin Human Regular 0 units 04/18/19 15:34 04/28/19 12:34 Humulin R SC 4 unit .MODERATE SLIDING SC PRN Administration Moderate Correctional Scale Insulin Human Regular 0 units 04/18/19 15:34 04/23/19 20:42 Humulin R SC 3 unit .BEDTIME SLIDING SC PRN Administration Bedtime Correctional Scale Metformin HCl 500 mg 04/21/19 17:00 04/29/19 09:05 Glucophage PO 500 mg BID-WM VINCE Administration Morphine Sulfate 2 mg 04/27/19 13:53 04/29/19 11:57 Morphine SLOW IVP 2 mg Q4H PRN Administration Moderate to Severe Pain (6-10) Prednisone 10 mg 04/23/19 06:00 04/29/19 06:12 Prednisone PO 10 mg 0600 VINCE Administration Prednisone 10 mg 04/23/19 13:00 04/29/19 11:59 Prednisone PO 10 mg 1300 VINCE Administration Saccharomyces Boulardii 250 mg 04/19/19 09:00 04/29/19 09:04 Florastor PO 250 mg DAILY VINCE Administration - Exam Eye: PERRL Heart: RRR, no murmur, no gallops, no rubs, normal peripheral pulses, irregular , diminshed peripheral pulses Respiratory: CTAB, no wheezes, no rales, no ronchi, normal chest expansion, no tachypnea, normal percussion Gastrointestinal: soft, non-tender, non-distended, normal bowel sounds, no palpable masses, no hepatomegaly Extremities: no cyanosis, 1+ LE edema Hosp A/P (1) Diabetic ulcer of right foot Code(s): E11.621 - TYPE 2 DIABETES MELLITUS WITH FOOT ULCER; L97.519 - NON-PRS CHRONIC ULCER OTH PRT RIGHT FOOT W UNSP SEVERITY Status: Acute (2) Peripheral vascular disease due to secondary diabetes Code(s): E13.51 - OTH DIABETES W DIABETIC PERIPHERAL ANGIOPATHY W/O GANGRENE Status: Chronic (3) COPD (chronic obstructive pulmonary disease) Status: Chronic Qualifiers: COPD type: unspecified COPD (4) Hyperlipidemia Code(s): E78.5 - HYPERLIPIDEMIA, UNSPECIFIED Status: Chronic Qualifiers: Hyperlipidemia type: unspecified Qualified Code(s): E78.5 - Hyperlipidemia , unspecified (5) Hypertension Code(s): I10 - ESSENTIAL (PRIMARY) HYPERTENSION Status: Chronic Qualifiers: Hypertension type: essential hypertension Qualified Code(s): I10 - Essential (primary) hypertension - Plan * Diabetic foot ulcer with osteomyelitis of the toe- she is s/p amputation * Continue local wound care and Cipro, and Doxy * Plan is to re-evaluate the wound with the next dressing change * DM- blood glucose is stable * HTN- blood pressure is stable * PVD- she is s/p angioplasty and STENT to the right common iliac * Hopefully home soon
[2019-04-29] MEDS: Insulin Regular 300 UNITS/3 ML VIAL SC PRN (15:38)
--- NOTE | 2019-04-29 16:56 | PRG ---
DATE OF SERVICE: 04/29/2019 Jennifer Quinteros is doing well today. Her wound looked good with wound VAC change. The patient is safe to be discharged any time on oral antibiotics. She is to be on oral antibiotics for 10 days and follow up in my office in three weeks. At this point, I will see her as needed. Please call if necessary. Job ID: [id number]
[2019-04-30] MEDS: predniSONE 5 MG TAB PO SCH ×2 (05:47→13:22)
[2019-04-30] MEDS: Ciprofloxacin 500 MG TAB PO SCH (05:47)
[2019-04-30] MEDS: Carvedilol 6.25 MG TAB PO SCH ×2 (08:19→16:50)
[2019-04-30] MEDS: Doxycycline 100 MG CAP PO SCH (08:19)
[2019-04-30] MEDS: Amlodipine 5 MG TAB PO SCH (08:22)
[2019-04-30] MEDS: Saccharomyces boulardii 250 MG CAP PO SCH (08:22)
[2019-04-30] MEDS: metFORMIN 500 MG TAB PO SCH ×2 (08:22→16:50)
[2019-04-30] MEDS: Aspirin 325 mg Enteric Coated Tablet PO SCH (08:22)
[2019-04-30] MEDS: HYDROcodone/Acetaminophen 10/325 mg Tablet PO PRN ×2 (08:22→13:31)
[2019-04-30] MEDS: Enoxaparin Sodium 40 MG/0.4 ML SYRINGE SC SCH (08:22)
[2019-04-30] MEDS: Famotidine 20 MG TAB PO SCH (10:00)
[2019-04-30] MEDS: Insulin Regular 300 UNITS/3 ML VIAL SC PRN (13:22)
--- NOTE | 2019-04-30 14:58 | PDOC.HOSPP ---
- Subjective Encounter Date: 04/30/19 Encounter Time: 14:55 Subjective: Ms. Quinteros was seen today in follow-up of diabetic foot infection with osteomyelitis. She does not have any new complaints. - Objective Vital Signs & Weight: Vital Signs (12 hours) Temp Pulse Resp BP Pulse Ox 04/30/19 11:07 98.5 F 83 16 143/84 H 94 L 04/30/19 08:20 94 L 04/30/19 07:32 98.6 F 93 18 141/77 H 94 L Weight Admit Weight 166 lb 3.2 oz Weight 166 lb 3.2 oz I&O: 04/29/19 04/30/19 05/01/19 06:59 06:59 06:59 Intake Total 590 240 Output Total 0 Balance 590 240 0 Result Diagrams: 04/25/19 06:11 04/26/19 08:48 Additional Labs: Accuchecks 04/30/19 04/29/19 04/29/19 04:50 22:57 20:22 POC Glucose 105 138 H 127 H 04/29/19 15:38 POC Glucose 208 H Hospitalist ROS - Medication Medications: Active Medications Generic Name Dose Route Start Last Admin Trade Name Freq PRN Reason Stop Dose Admin Hydrocodone Bitart/Acetaminophen 1 tab 04/27/19 13:52 04/30/19 13:31 [place] 10/325 PO 1 tab Q4H PRN Administration Severe Pain (7-10) Amlodipine Besylate 5 mg 04/26/19 09:00 04/30/19 08:22 Norvasc PO 5 mg DAILY VINCE Administration Aspirin 325 mg 04/24/19 09:00 04/30/19 08:22 Ecotrin PO 325 mg DAILY VINCE Administration Carvedilol 12.5 mg 04/18/19 17:00 04/30/19 08:19 Coreg PO 12.5 mg BID-WM VINCE Administration Ciprofloxacin 500 mg 04/28/19 20:00 04/30/19 05:47 Cipro PO 500 mg BID@599,1999 VINCE Administration Doxycycline Hyclate 100 mg 04/28/19 21:00 04/30/19 08:19 Vibramycin PO 100 mg BID VINCE Administration Enoxaparin Sodium 40 mg 04/19/19 09:00 04/30/19 08:22 Lovenox SC 40 mg 09 VINCE Administration Famotidine 20 mg 04/18/19 21:00 04/30/19 10:00 Pepcid PO 20 mg BID VINCE Administration Insulin Human Regular 0 units 04/18/19 15:34 04/30/19 13:22 Humulin R SC 2 unit .MODERATE SLIDING SC PRN Administration Moderate Correctional Scale Insulin Human Regular 0 units 04/18/19 15:34 04/23/19 20:42 Humulin R SC 3 unit .BEDTIME SLIDING SC PRN Administration Bedtime Correctional Scale Metformin HCl 500 mg 04/21/19 17:00 04/30/19 08:22 Glucophage PO 500 mg BID-WM VINCE Administration Morphine Sulfate 2 mg 04/27/19 13:53 04/29/19 11:57 Morphine SLOW IVP 2 mg Q4H PRN Administration Moderate to Severe Pain (6-10) Prednisone 10 mg 04/23/19 06:00 04/30/19 05:47 Prednisone PO 10 mg 0600 VINCE Administration Prednisone 10 mg 04/23/19 13:00 04/30/19 13:22 Prednisone PO 10 mg 1300 VINCE Administration Saccharomyces Boulardii 250 mg 04/19/19 09:00 04/30/19 08:22 Florastor PO 250 mg DAILY VINCE Administration - Exam Eye: PERRL Heart: RRR, no murmur, no gallops, no rubs, normal peripheral pulses Respiratory: CTAB, no wheezes, no rales, no ronchi, normal chest expansion, no tachypnea Gastrointestinal: soft, non-tender, non-distended, normal bowel sounds, no palpable masses, no hepatomegaly Extremities: no cyanosis, no edema Hosp A/P (1) Diabetic ulcer of right foot Code(s): E11.621 - TYPE 2 DIABETES MELLITUS WITH FOOT ULCER; L97.519 - NON-PRS CHRONIC ULCER OTH PRT RIGHT FOOT W UNSP SEVERITY Status: Acute (2) Peripheral vascular disease due to secondary diabetes Code(s): E13.51 - OTH DIABETES W DIABETIC PERIPHERAL ANGIOPATHY W/O GANGRENE Status: Chronic (3) COPD (chronic obstructive pulmonary disease) Status: Chronic Qualifiers: COPD type: unspecified COPD (4) Hyperlipidemia Code(s): E78.5 - HYPERLIPIDEMIA, UNSPECIFIED Status: Chronic Qualifiers: Hyperlipidemia type: unspecified Qualified Code(s): E78.5 - Hyperlipidemia , unspecified (5) Hypertension Code(s): I10 - ESSENTIAL (PRIMARY) HYPERTENSION Status: Chronic Qualifiers: Hypertension type: essential hypertension Qualified Code(s): I10 - Essential (primary) hypertension - Plan * Diabetic foot ulcer with osteomyelitis of the toe- she is s/p amputation * DM- blood glucose is stable * HTN- blood pressure is stable * PVD- she is s/p angioplasty and STENT to the right common iliac * Awaiting approval for home wound vac
--- NOTE | 2019-04-30 17:55 | DIS ---
DATE OF ADMISSION: 04/18/2019 DATE OF DISCHARGE: 04/30/2019 PRIMARY CARE PHYSICIAN: Efrem Dyer. DISCHARGE DISPOSITION: Home. DISCHARGE DIAGNOSES: 1. Diabetic foot infection with osteomyelitis of the first toe on the right foot. 2. Diabetes mellitus type 2. 3. Hypertension. 4. Peripheral vascular disease. 5. Bipolar disorder. 6. Schizophrenia. 7. Chronic obstructive pulmonary disease. 8. Fibromyalgia. 9. History of hepatitis C. 10. Rheumatoid arthritis. DISCHARGE MEDICATIONS: Include; 1. Doxycycline 100 mg p.o. twice a day for 2 weeks. 2. Ciprofloxacin 500 mg p.o. twice a day for 2 weeks. 3. Carvedilol 12.5 mg p.o. twice a day. 4. Tylenol No. 4 one tablet q.4 hours as needed for pain. 5. Topiramate 50 mg at bedtime. 6. Pantoprazole 40 mg daily. 7. Metformin 500 mg twice a day. 8. Lovastatin 20 mg at bedtime. 9. Lisinopril 20 mg daily. 10. Neurontin 600 mg t.i.d. 11. Iron sulfate 325 mg daily. 12. Aspirin 325 mg p.o. daily. 13. Norvasc 5 mg daily. 14. Amitriptyline 50 mg at bedtime. PROCEDURES DONE DURING THIS ADMISSION: The patient had an angiogram of the lower extremities as well as angiogram with balloon angioplasty to the right common iliac. The patient had amputation of the first toe on the right foot. CODE STATUS: Full code. ALLERGIES: IODINATED CONTRAST MEDIA. HOSPITAL COURSE: Ms. Quinteros is a pleasant 58-year-old female, who noted an infection on the first toe on the right foot. This had failed outpatient treatment. There was some history of noncompliance. She was admitted and started on IV antibiotics and a vascular exam was undertaken. She was found to have significant peripheral vascular disease and Vascular Surgery was consulted. She underwent arteriogram with angioplasty to the right common iliac. Following this, she had good reconstitution of flow. After the amputation of the toe, she underwent local wound care and a wound VAC application. After it was determined she was stable with the wound VAC treatment, outpatient arrangements were made for wound care as well as the wound VAC and she was subsequently discharged home and instructed to have close outpatient followup. Job ID: [id number]
[2019-04-30 18:54] VITALS: BP 158/88; TEMP 98.6
--- NOTE | 2019-05-02 20:17 | PQF ---
SHIVAM HARRINGTON TONI MD [id number] CLINICAL DOCUMENTATION CLARIFICATION FORM: POST DISCHARGE Addendum to original discharge summary date: ____ Late entry note date: __ DATE: 05/02/19 ATTN: Abdirizak Akhtar Please exercise your independent, professional judgment in responding to the clarification form. Clinical indicators are provided on the bottom of this form for your review Please check appropriate box(s) to clarify if the following diagnosis has been ruled in or ruled out: Sepsis [X ] Ruled in diagnosis [ ] Continue to treat [ ] Resolved [ ] Ruled out diagnosis [ ] Cannot rule out diagnosis [ ] Other diagnosis [ ] Unable to determine In addition, please specify: Present on Admission (POA): [ X] Yes [ ] No [ ] Unable to determine For continuity of documentation, please document condition throughout progress notes and discharge summary. Thank You. CLINICAL INDICATORS - SIGNS / SYMPTOMS / LABS H&P p1 04/18 Dr Prescott Complaint of drainage from the foot ulcer H&P p1 04/18 Dr Prescott Over the past 1-2 weeks, the pt noticed increased purulent discharge along with pain, swelling, and redness of the right foot around the great toe. Consult p2 04/18 Dr Ramsay Peripheral vascular disease associated with type 2 diabetes and chronic ulcer in the medial aspect of the right hallux associated with osteomyelitis Path report p1 04/26 Ischemic Ulceration (gangrene) RISK FACTORS H&P p1 04/18 has DM type 2 with chronic diabetic foot ulcer H&P p3 04/18 Sepsis secondary to diabetic foot infection with right great toe osteomyelitis H&P p3 04/18 DM neuropathy Operative report 04/23 PVD with right great toe gangrene TREATMENTS MAR 04/18 IV Zosyn JUL 07 IV Vancomycin JUL 07 Aspirin ID consult 04/18 Gonzalez Seth Operative report 04/23 Angioplasty of Left common iliac artery Operative report 04/26 Great toe amputation (This form is maintained as a part of the permanent medical record) 2014 [employer]. All Rights Reserved [email or web address] [not provided] MTDD
--- NOTE | 2019-05-02 20:20 | PQF ---
SHIVAM HARRINGTON TONI MD [id number] CLINICAL DOCUMENTATION CLARIFICATION FORM: POST DISCHARGE Addendum to original discharge summary date: ____ Late entry note date: __ DATE:05/02/19 ATTN: Abdirizak Akhtar Please exercise your independent, professional judgment in responding to the clarification form. Clinical indicators are provided on the bottom of this form for your review In your clinical opinion based on clinical findings below, can you please specify type gangrene if: Please check appropriate box(s): [ ] Gas Gangrene [ ] Dry Gangrene [ ] Gangrene NOS [X ] Other diagnosis ____Osteomyelitis, and cellulitis of the toe [ ] Unable to determine In addition, please specify: Present on Admission (POA): [ X ] Yes [ ] No [ ] Unable to determine For continuity of documentation, please document condition throughout progress notes and discharge summary. Thank You. CLINICAL INDICATORS - SIGNS / SYMPTOMS / LABS H&P p1 04/18 Dr Prescott Complaint of drainage from the foot ulcer H&P p1 04/18 Dr Prescott Over the past 1-2 weeks, the pt noticed increased purulent discharge along with pain, swelling, and redness of the right foot around the great toe. Consult p2 04/18 Dr Ramsay Peripheral vascular disease associated with type 2 diabetes and chronic ulcer in the medial aspect of the right hallux associated with osteomyelitis Path report p1 04/26 Ischemic Ulceration (gangrene) RISK FACTORS H&P p1 04/18 has DM type 2 with chronic diabetic foot ulcer H&P p3 04/18 Sepsis secondary to diabetic foot infection with right great toe osteomyelitis H&P p3 04/18 DM neuropathy Operative report 04/23 PVD with right great toe gangrene TREATMENTS: JUL 07 IV Zosyn JUL 07 IV Vancomycin JUL 07 Aspirin ID consult 04/18 Gonzalez Seth Operative report 04/23 Angioplasty of Left common iliac artery Operative report 04/26 Great toe amputation (This form is maintained as a part of the permanent medical record) 2014 [employer]. All Rights Reserved [email or web address] [not provided] MTDD
== END 2019-04-30 18:56 | disposition home or self-care (01) | DRG 253 ==
LOC: ERS 11:35 → T4-A 15:54
PROVIDERS: ADMIT Internal Medicine; ATTEND Internal Medicine
PROC: 047C3DZ Dilation of Right Common Iliac Artery with Intraluminal Device, Percutaneous Approach (ICD-10-PCS; 2019-04-23)
PROC: B410ZZZ Fluoroscopy of Abdominal Aorta (ICD-10-PCS; 2019-04-23)
PROC: B41FZZZ Fluoroscopy of Right Lower Extremity Arteries (ICD-10-PCS; 2019-04-23)
PROC: 0Y6P0Z1 Detachment at Right 1st Toe, High, Open Approach (ICD-10-PCS; principal; 2019-04-26)
DX: E11.52 Type 2 diabetes mellitus with diabetic peripheral angiopathy with gangrene (principal); M86.8X7 Other osteomyelitis, ankle and foot; E87.2 Acidosis; I96 Gangrene, not elsewhere classified; Z86.73 Personal history of transient ischemic attack (TIA), and cerebral infarction without residual deficits; E11.69 Type 2 diabetes mellitus with other specified complication; E11.40 Type 2 diabetes mellitus with diabetic neuropathy, unspecified; F20.9 Schizophrenia, unspecified; F31.9 Bipolar disorder, unspecified; E11.621 Type 2 diabetes mellitus with foot ulcer; L97.519 Non-pressure chronic ulcer of other part of right foot with unspecified severity; M06.9 Rheumatoid arthritis, unspecified; J44.9 Chronic obstructive pulmonary disease, unspecified; J45.20 Mild intermittent asthma, uncomplicated; B19.20 Unspecified viral hepatitis C without hepatic coma; E78.5 Hyperlipidemia, unspecified; I10 Essential (primary) hypertension; E83.42 Hypomagnesemia; K21.9 Gastro-esophageal reflux disease without esophagitis; M79.7 Fibromyalgia; Z79.82 Long term (current) use of aspirin; Z79.899 Other long term (current) drug therapy; Z79.4 Long term (current) use of insulin; Z91.041 Radiographic dye allergy status; Z87.891 Personal history of nicotine dependence
CPT/HCPCS: 36415; 36416; 37221; 76942; 80048; 80053; 81003; 83036; 83605; 83735; 85025; 85347; 86140; 87040; 87149; 88305; 88311; 93005; 93010; 93923; 96365; 96366; 96368; 99152; 99153; C1725; C1760; C1769; C1874; J0360; J1200; J1644; J1650; J1815; J2185; J2250; J2270; J2543; J2550; J2704; J3010; J3370; J3475; J3490; J7512; Q0163; Q9967; S0020

== ENCOUNTER 2019-11-04 01:05 | Emergency (ER) | payer OTHER, SELFPAY ==
[2019-11-04] MEDS ORDERED: Dexamethasone 4 MG TAB ONE (01:25)
== END 2019-11-04 01:47 | disposition home or self-care (01) ==
LOC: ERS 01:05
DX: T63.461A Toxic effect of venom of wasps, accidental (unintentional), initial encounter (principal); E11.9 Type 2 diabetes mellitus without complications; E78.5 Hyperlipidemia, unspecified; E78.00 Pure hypercholesterolemia, unspecified; I10 Essential (primary) hypertension; J43.9 Emphysema, unspecified; B19.20 Unspecified viral hepatitis C without hepatic coma; F31.9 Bipolar disorder, unspecified; F25.9 Schizoaffective disorder, unspecified; M06.9 Rheumatoid arthritis, unspecified; F17.210 Nicotine dependence, cigarettes, uncomplicated; Z86.73 Personal history of transient ischemic attack (TIA), and cerebral infarction without residual deficits; Z79.84 Long term (current) use of oral hypoglycemic drugs; Z79.899 Other long term (current) drug therapy
CPT/HCPCS: 99283; J8540

== ENCOUNTER 2020-03-12 19:14 | Emergency (ER) | payer SELFPAY ==
[2020-03-12 21:14] LABS: Bilirubin Negative (Negative); Blood, Urine Negative (Negative); Clarity Clear (Clear); Glucose, Urine (Dipstick) Normal (Negative); Ketone, Urine Negative (Negative); Leukocyte Negative Leu/uL (Negative); Nitrite Negative (Negative); Protein, Urine (Dipstick) Negative (Neg-Trace); Specific Gravity, Urine 1.003 (1.002-1.036); Urobilinogen Normal mg/dL (Less than 2); pH, Urine 5.5 (5.0-9.0)
== END 2020-03-12 21:38 | disposition home or self-care (01) ==
LOC: ERS 19:14
DX: L20.9 Atopic dermatitis, unspecified (principal); R10.9 Unspecified abdominal pain; E11.9 Type 2 diabetes mellitus without complications; E78.5 Hyperlipidemia, unspecified; E78.00 Pure hypercholesterolemia, unspecified; I10 Essential (primary) hypertension; M06.9 Rheumatoid arthritis, unspecified; J44.9 Chronic obstructive pulmonary disease, unspecified; F31.9 Bipolar disorder, unspecified; F25.9 Schizoaffective disorder, unspecified; Z87.891 Personal history of nicotine dependence
CPT/HCPCS: 81003; 87086; 99284

== ENCOUNTER 2020-07-21 19:41 | Emergency (ER) | payer SELFPAY ==
[2020-07-21] MEDS ORDERED: Morphine 4 MG/ML VIAL ONE (21:21)
[2020-07-21 21:22] LABS: Bacteria/HPF None Seen HPF (None Seen); Bilirubin Negative (Negative); Blood, Urine Negative (Negative); Clarity Clear (Clear); Glucose, Urine (Dipstick) Normal (Negative); Ketone, Urine Trace mg/dL (Negative); Leukocyte 75 Leu/uL (Negative); Nitrite Negative (Negative); Protein, Urine (Dipstick) Negative (Neg-Trace); RBC/HPF 0-3 HPF (0-3); Specific Gravity, Urine 1.017 (1.002-1.036); Squamous Epithelial 0-3 HPF (0-3); Urobilinogen Normal mg/dL (Less than 2); WBC/HPF 0-3 HPF (0-3)
== END 2020-07-21 21:51 | disposition home or self-care (01) ==
LOC: ERS 19:41
DX: S39.012A Strain of muscle, fascia and tendon of lower back, initial encounter (principal); E11.9 Type 2 diabetes mellitus without complications; E78.5 Hyperlipidemia, unspecified; E78.00 Pure hypercholesterolemia, unspecified; I10 Essential (primary) hypertension; M06.9 Rheumatoid arthritis, unspecified; J43.9 Emphysema, unspecified; B19.20 Unspecified viral hepatitis C without hepatic coma; J45.909 Unspecified asthma, uncomplicated; Z87.891 Personal history of nicotine dependence; X58.XXXA Exposure to other specified factors, initial encounter
CPT/HCPCS: 81003; 81015; 96372; 99283; J2270

== ENCOUNTER 2020-08-02 06:33 | Inpatient (IN) | payer SELFPAY ==
[2020-08-02] MEDS ORDERED: Metoclopramide HCl 10 MG TAB ONE (07:09)
[2020-08-02] MEDS ORDERED: Acetaminophen 500 MG TAB ONE (07:09)
[2020-08-02] MEDS ORDERED: diphenhydrAMINE 50 MG/ML VIAL ONE (07:09)
[2020-08-02] MEDS ORDERED: Metoclopramide 10 MG/10 ML UDCUP ONE (07:09)
[2020-08-02] MEDS ORDERED: Metoclopramide HCl 10 MG/2 ML VIAL ONE (07:10)
[2020-08-02 07:37] LABS: Hemoglobin 12.6 g/dL (12.0-16.0); Mean Corpuscular HGB CONC 34.4 g/dL (32.0-36.0); Mean Corpuscular Hemoglobin 32.1 pg (27.0-31.0); Mean Corpuscular Volume 93.4 fL (78.0-98.0); Mean Platelet Volume 6.9 fL (7.4-10.4); Platelet Count 231 thou/uL (130-400); RBC Distribution Width 11.6 % (11.5-14.5); Red Blood Cell (RBC) Count 3.93 mill/uL (4.20-5.40)
[2020-08-02 07:40] LABS: ALT (SGPT) 22 U/L (8-55); AST (SGOT) 22 U/L (5-34); Alkaline Phosphatase 52 U/L (40-110); Anion Gap 16 mmol/L (10-20); BUN (Urea Nitrogen) 8 mg/dL (9.8-20.1); Bilirubin, Total 0.5 mg/dL (0.2-1.2); Calc. Creatinine Clearance 0 mL/min (70-130); Calcium 9.6 mg/dL (7.8-10.44); Carbon Dioxide 22 mmol/L (23-31); Chloride 89 mmol/L (98-107); Globulin 3.6 g/dL (2.4-3.5); Glucose 112 mg/dL (80-115); Potassium 4.2 mmol/L (3.5-5.1); Protein, Total 7.6 g/dL (5.8-8.1); Sodium 123 mmol/L (136-145)
[2020-08-02 07:46] LABS: Eosinophils 2 % (0-10); Lymphocytes 36 % (21-51); MDiff Complete? YES; Monocytes 14 % (0-10); Neutrophil 43 % (42-75); Platelet Morphology Comment Appears Adequate; Reactive Lymphocytes 5 % (0-10)
[2020-08-02] MEDS ORDERED: HumaLOG 300 UNITS/3 ML VIAL SC PRN ×2 (09:25)
[2020-08-02] MEDS ORDERED: Acetaminophen 325 MG TAB PO PRN (09:25)
[2020-08-02] MEDS ORDERED: Senokot S 8.6-50 MG TAB PO PRN (09:25)
[2020-08-02] MEDS ORDERED: Ondansetron ODT 4 MG TAB PO PRN (09:25)
[2020-08-02] MEDS ORDERED: Loperamide HCl 2 MG CAP PO PRN (09:25)
[2020-08-02] MEDS ORDERED: Ondansetron PF 4 MG/2 ML Vial IVP PRN (09:25)
[2020-08-02] MEDS ORDERED: Zolpidem Tartrate 5 MG TAB PO PRN (09:25)
[2020-08-02] MEDS ORDERED: Bisacodyl 10 MG SUPP PR PRN (09:25)
[2020-08-02] MEDS ORDERED: Dextrose 5% in Water 1,000 ML IV PRN (09:25)
[2020-08-02] MEDS ORDERED: Dextrose 50% Abboject 50 ML SYRINGE SLOW IVP PRN (09:25)
[2020-08-02] MEDS ORDERED: Calcium Carbonate 500 MG ChewTAB PO PRN (09:25)
[2020-08-02] MEDS ORDERED: Lorazepam 0.5 MG TAB PO PRN (10:45)
[2020-08-02] MEDS: Sodium Chloride 0.9% 1,000 ML IV SCH ×2 (11:15→20:23)
[2020-08-02 12:41] VITALS: BMI 31.2
[2020-08-02 13:01] LABS: SARS-CoV-2 PCR by NAA Not Detected (NotDetected)
[2020-08-02] MEDS: HYDROcodone/Acetaminophen 5/325 mg Tablet PO PRN ×2 (15:37→20:26)
[2020-08-02] MEDS: Famotidine 20 MG TAB PO SCH (20:23)
[2020-08-02 22:22] LABS: Bacteria/HPF None Seen HPF (None Seen); Bilirubin Negative (Negative); Blood, Urine Negative (Negative); Clarity Clear (Clear); Glucose, Urine (Dipstick) Normal (Negative); Ketone, Urine Negative (Negative); Leukocyte Negative Leu/uL (Negative); Nitrite Negative (Negative); Protein, Urine (Dipstick) Negative (Neg-Trace); RBC/HPF None Seen HPF (0-3); Specific Gravity, Urine 1.004 (1.002-1.036); Squamous Epithelial None Seen HPF (0-3); Urobilinogen Normal mg/dL (Less than 2); WBC/HPF 0-3 HPF (0-3)
[2020-08-03] MEDS: HYDROcodone/Acetaminophen 5/325 mg Tablet PO PRN ×2 (05:03→17:51)
[2020-08-03 06:40] LABS: #Eosinphils 0.2 thou/uL (0.0-0.7); #Lymphocytes 1.3 thou/uL (1.20-3.40); #Monocytes 0.6 thou/uL (0.11-0.59); #Neutrophils 1.9 thou/uL (1.40-6.50); %Basophils 0.4 % (0.0-1.0); %Eosinophils 4.1 % (0.0-10.0); %Lymphocytes 32.7 % (21.0-51.0); %Monocytes 13.9 % (0.0-10.0); %Neutrophils 48.8 % (42.0-75.0); Hemoglobin 11.9 g/dL (12.0-16.0); Mean Corpuscular HGB CONC 34.1 g/dL (32.0-36.0); Mean Corpuscular Hemoglobin 32.3 pg (27.0-31.0); Mean Corpuscular Volume 94.9 fL (78.0-98.0); Mean Platelet Volume 6.6 fL (7.4-10.4); Platelet Count 214 thou/uL (130-400); RBC Distribution Width 11.6 % (11.5-14.5); Red Blood Cell (RBC) Count 3.69 mill/uL (4.20-5.40); White Blood Cell (WBC) Count 3.9 thou/uL (4.8-10.8)
[2020-08-03 07:03] LABS: ALT (SGPT) 15 U/L (8-55); AST (SGOT) 16 U/L (5-34); Albumin 3.2 g/dL (3.4-4.8); Alkaline Phosphatase 43 U/L (40-110); Anion Gap 13 mmol/L (10-20); BUN (Urea Nitrogen) 6 mg/dL (9.8-20.1); Bilirubin, Total 0.4 mg/dL (0.2-1.2); Calc. Creatinine Clearance 99 mL/min (70-130); Calcium 8.4 mg/dL (7.8-10.44); Carbon Dioxide 22 mmol/L (23-31); Chloride 99 mmol/L (98-107); Glucose 95 mg/dL (80-115); Potassium 3.8 mmol/L (3.5-5.1); Protein, Total 6.2 g/dL (5.8-8.1); Sodium 130 mmol/L (136-145)
[2020-08-03] MEDS: Cyanocobalamin (Vitamin B-12) 1,000 MCG TAB PO SCH (08:48)
[2020-08-03] MEDS: Multivitamin W/ Minerals 1 TAB PO SCH (08:49)
[2020-08-03] MEDS: Folic Acid 1 MG TAB PO SCH (08:49)
[2020-08-03] MEDS: Thiamine 100 MG TAB PO SCH (08:49)
[2020-08-03] MEDS: Famotidine 20 MG TAB PO SCH ×2 (08:49→19:59)
[2020-08-03] MEDS: Enoxaparin Sodium 40 MG/0.4 ML SYRINGE SC SCH (08:50)
[2020-08-03 09:23] LABS: Creatinine, Urine 24.3 mg/dL (47-110)
[2020-08-03] MEDS: diphenhydrAMINE 25 MG CAP PO PRN ×2 (12:08→23:57)
[2020-08-03] MEDS: Sodium Chloride 0.9% 1,000 ML IV SCH (13:13)
[2020-08-03] MEDS ORDERED: Gabapentin 300 MG CAP PO SCH (15:15)
[2020-08-03] MEDS: Gabapentin 300 MG CAP PO SCH (19:59)
[2020-08-04] MEDS: Sodium Chloride 0.9% 1,000 ML IV SCH (01:15)
[2020-08-04 06:44] LABS: Anion Gap 11 mmol/L (10-20); BUN (Urea Nitrogen) 4 mg/dL (9.8-20.1); Calc. Creatinine Clearance 100 mL/min (70-130); Calcium 8.6 mg/dL (7.8-10.44); Carbon Dioxide 26 mmol/L (23-31); Chloride 100 mmol/L (98-107); Glucose 129 mg/dL (80-115); Potassium 3.7 mmol/L (3.5-5.1); Sodium 133 mmol/L (136-145)
[2020-08-04] MEDS: Famotidine 20 MG TAB PO SCH (07:47)
[2020-08-04] MEDS: Folic Acid 1 MG TAB PO SCH (07:47)
[2020-08-04] MEDS: Thiamine 100 MG TAB PO SCH (07:47)
[2020-08-04] MEDS: Enoxaparin Sodium 40 MG/0.4 ML SYRINGE SC SCH (07:47)
[2020-08-04] MEDS: Cyanocobalamin (Vitamin B-12) 1,000 MCG TAB PO SCH (07:47)
[2020-08-04] MEDS: Multivitamin W/ Minerals 1 TAB PO SCH (07:47)
[2020-08-04] MEDS: Gabapentin 300 MG CAP PO SCH (07:48)
[2020-08-04 11:40] VITALS: BP 138/80; TEMP 98.7
== END 2020-08-04 13:59 | disposition home or self-care (01) | DRG 103 ==
LOC: ERS 06:33 → ERHOLD 08:55 → T4-A 12:45
PROVIDERS: ADMIT Internal Medicine; ATTEND Internal Medicine
DX: G44.40 Drug-induced headache, not elsewhere classified, not intractable (principal); E87.1 Hypo-osmolality and hyponatremia; E11.51 Type 2 diabetes mellitus with diabetic peripheral angiopathy without gangrene; Z20.822 Contact with and (suspected) exposure to COVID-19; E78.5 Hyperlipidemia, unspecified; E78.00 Pure hypercholesterolemia, unspecified; I10 Essential (primary) hypertension; M06.9 Rheumatoid arthritis, unspecified; J43.9 Emphysema, unspecified; F25.0 Schizoaffective disorder, bipolar type; F41.9 Anxiety disorder, unspecified; D53.9 Nutritional anemia, unspecified; T50.B95A Adverse effect of other viral vaccines, initial encounter; Z86.73 Personal history of transient ischemic attack (TIA), and cerebral infarction without residual deficits; Z86.19 Personal history of other infectious and parasitic diseases; Z90.710 Acquired absence of both cervix and uterus; Z87.891 Personal history of nicotine dependence; Z91.041 Radiographic dye allergy status; Z79.82 Long term (current) use of aspirin; Z79.4 Long term (current) use of insulin; Z79.899 Other long term (current) drug therapy
CPT/HCPCS: 36415; 36416; 70450; 80048; 80053; 81001; 82533; 82570; 83930; 83935; 84300; 84443; 84550; 85025; 87635; 96365; 96375; J1200; J1650; J2765; Q0163; U0003; U0005

== ENCOUNTER 2020-09-20 14:01 | Outpatient (CLI) | payer OTHER | END 2020-09-20 14:02 | disposition home or self-care (01) | LOC: BICRAD 14:01 | DX: S69.91XA Unspecified injury of right wrist, hand and finger(s), initial encounter (principal) ==

== ENCOUNTER 2020-09-22 04:12 | Emergency (ER) | payer SELFPAY ==
[2020-09-22 04:50] LABS: Hemoglobin 11.7 g/dL (12.0-16.0); Mean Corpuscular HGB CONC 35.6 g/dL (32.0-36.0); Mean Corpuscular Hemoglobin 34.8 pg (27.0-31.0); Mean Corpuscular Volume 97.8 fL (78.0-98.0); Mean Platelet Volume 6.7 fL (7.4-10.4); Platelet Count 188 thou/uL (130-400); RBC Distribution Width 12.9 % (11.5-14.5); Red Blood Cell (RBC) Count 3.36 mill/uL (4.20-5.40); White Blood Cell (WBC) Count 5.5 thou/uL (4.8-10.8)
[2020-09-22 05:14] LABS: Eosinophils 6 % (0-10); Lymphocytes 38 % (21-51); MDiff Complete? YES; Monocytes 10 % (0-10); Neutrophil 46 % (42-75); Platelet Morphology Comment Appears Adequate
[2020-09-22 05:15] LABS: Anion Gap 13 mmol/L (10-20); BUN (Urea Nitrogen) 7 mg/dL (9.8-20.1); CK (CPK) 80 U/L (29-168); Calc. Creatinine Clearance 0 mL/min (70-130); Calcium 9.4 mg/dL (7.8-10.44); Carbon Dioxide 20 mmol/L (23-31); Chloride 100 mmol/L (98-107); Glucose 120 mg/dL (80-115); Potassium 3.9 mmol/L (3.5-5.1); Sodium 129 mmol/L (136-145)
[2020-09-22] MEDS ORDERED: chlordiazePOXIDE HCl 25 MG CAP ONE (05:23)
== END 2020-09-22 05:52 | disposition home or self-care (01) ==
LOC: ERS 04:12
DX: R25.2 Cramp and spasm (principal); E11.9 Type 2 diabetes mellitus without complications; E78.5 Hyperlipidemia, unspecified; I10 Essential (primary) hypertension; J43.9 Emphysema, unspecified; Z87.891 Personal history of nicotine dependence; Z79.899 Other long term (current) drug therapy
CPT/HCPCS: 80048; 82550; 85025; 99283

== ENCOUNTER 2020-09-22 22:50 | Emergency (ER) | payer SELFPAY ==
[2020-09-22 23:22] LABS: #Basophils 0.1 thou/uL (0.0-0.2); #Eosinphils 0.2 thou/uL (0.0-0.7); #Monocytes 0.8 thou/uL (0.11-0.59); #Neutrophils 2.8 thou/uL (1.40-6.50); %Basophils 1.3 % (0.0-1.0); %Eosinophils 3.5 % (0.0-10.0); %Lymphocytes 33.9 % (21.0-51.0); %Monocytes 13.8 % (0.0-10.0); %Neutrophils 47.5 % (42.0-75.0); Hemoglobin 11.6 g/dL (12.0-16.0); Mean Corpuscular HGB CONC 34.9 g/dL (32.0-36.0); Mean Corpuscular Hemoglobin 34.3 pg (27.0-31.0); Mean Corpuscular Volume 98.4 fL (78.0-98.0); Mean Platelet Volume 6.4 fL (7.4-10.4); Platelet Count 186 thou/uL (130-400); RBC Distribution Width 12.8 % (11.5-14.5); Red Blood Cell (RBC) Count 3.38 mill/uL (4.20-5.40); White Blood Cell (WBC) Count 5.9 thou/uL (4.8-10.8)
[2020-09-22 23:45] LABS: Bacteria/HPF None Seen HPF (None Seen); Bilirubin Negative (Negative); Blood, Urine Negative (Negative); Clarity Clear (Clear); Glucose, Urine (Dipstick) Normal (Negative); Ketone, Urine Negative (Negative); Leukocyte 75 Leu/uL (Negative); Nitrite Negative (Negative); Protein, Urine (Dipstick) Negative (Neg-Trace); RBC/HPF 0-3 HPF (0-3); Specific Gravity, Urine 1.008 (1.002-1.036); Squamous Epithelial 0-3 HPF (0-3); Urobilinogen Normal mg/dL (Less than 2); WBC/HPF 0-3 HPF (0-3)
[2020-09-22 23:46] LABS: Alcohol 38 mg/dL (Less than 10); Salicylate Less than 8.0 mg/dL (15.0-30.0)
[2020-09-22 23:47] LABS: ALT (SGPT) 21 U/L (8-55); AST (SGOT) 22 U/L (5-34); Albumin 3.6 g/dL (3.4-4.8); Alkaline Phosphatase 52 U/L (40-110); Anion Gap 14 mmol/L (10-20); BUN (Urea Nitrogen) 8 mg/dL (9.8-20.1); Bilirubin, Total 0.3 mg/dL (0.2-1.2); Calc. Creatinine Clearance 0 mL/min (70-130); Calcium 9.1 mg/dL (7.8-10.44); Carbon Dioxide 20 mmol/L (23-31); Chloride 100 mmol/L (98-107); Globulin 3.3 g/dL (2.4-3.5); Glucose 96 mg/dL (80-115); Potassium 3.8 mmol/L (3.5-5.1); Protein, Total 6.9 g/dL (5.8-8.1); Sodium 130 mmol/L (136-145)
[2020-09-22 23:54] LABS: Medtox Reader # READER 4
[2020-09-22 23:55] LABS: Amphetamine Not Detected (NotDetected); Barbiturates Screen Not Detected (NotDetected); Benzodiazepine Screen Detected (NotDetected); Cocaine Metabolite Screen Not Detected (NotDetected); Medtox Control Line Valid? VALID (VALID); Methadone Not Detected (NotDetected); Methamphetamine Not Detected (NotDetected); Opiate Screen Detected (NotDetected); Oxycodone Screen Not Detected (NotDetected); Phencyclidine (PCP) Not Detected (NotDetected); THC/Cannabinoid Screen Not Detected (NotDetected); Tricyclic Screen Detected (NotDetected)
[2020-09-23 03:31] LABS: Alcohol Less than 10 mg/dL (Less than 10); Salicylate Less than 8.0 mg/dL (15.0-30.0)
== END 2020-09-23 11:28 | disposition home or self-care (01) ==
LOC: ERS 22:50
DX: T51.91XA Toxic effect of unspecified alcohol, accidental (unintentional), initial encounter (principal); T50.901A Poisoning by unspecified drugs, medicaments and biological substances, accidental (unintentional), initial encounter; F31.9 Bipolar disorder, unspecified; F20.9 Schizophrenia, unspecified; E11.9 Type 2 diabetes mellitus without complications; E78.5 Hyperlipidemia, unspecified; I10 Essential (primary) hypertension; Z79.899 Other long term (current) drug therapy; Z79.82 Long term (current) use of aspirin
CPT/HCPCS: 36415; 70450; 71045; 80306; 80307; 81003; 81015; 83605; 93005; 94760

== ENCOUNTER → 2021-08-20 | Emergency (ER) | payer SELFPAY ==
[2021-08-20 12:56] LABS: Hemoglobin 15.8 g/dL (12.0-16.0); Mean Corpuscular HGB CONC 34.9 g/dL (32.0-36.0); Mean Corpuscular Hemoglobin 35.7 pg (27.0-31.0); Mean Platelet Volume 7.6 fL (7.4-10.4); Platelet Count 179 thou/uL (130-400); RBC Distribution Width 11.6 % (11.5-14.5); Red Blood Cell (RBC) Count 4.43 mill/uL (4.20-5.40); White Blood Cell (WBC) Count 7.4 thou/uL (4.8-10.8)
[2021-08-20 13:14] LABS: MDiff Complete? YES
[2021-08-20 13:15] LABS: Eosinophils 5 % (0-10); Lymphocytes 17 % (21-51); Macrocytosis SLIGHT = 6-15 cells (100X) (0-5/hpf); Monocytes 9 % (0-10); Neutrophil 61 % (42-75); Platelet Morphology Comment Appears Adequate; Polychromasia SLIGHT = 2-3 cells (100X) (0-2/hpf); Reactive Lymphocytes 7 % (0-10)
[2021-08-20 13:24] LABS: ALT (SGPT) 17 U/L (8-55); AST (SGOT) 22 U/L (5-34); Albumin 4.3 g/dL (3.4-4.8); Alkaline Phosphatase 62 U/L (40-110); Anion Gap 16 mmol/L (10-20); BUN (Urea Nitrogen) 7 mg/dL (9.8-20.1); Bilirubin, Total 0.3 mg/dL (0.2-1.2); Calc. Creatinine Clearance 0 mL/min (70-130); Calcium 9.7 mg/dL (7.8-10.44); Carbon Dioxide 22 mmol/L (23-31); Chloride 100 mmol/L (98-107); Globulin 3.6 g/dL (2.4-3.5); Glucose 92 mg/dL (80-115); Lipase 26 U/L (8-78); Potassium 4.8 mmol/L (3.5-5.1); Protein, Total 7.9 g/dL (5.8-8.1); Sodium 133 mmol/L (136-145)
[2021-08-20 14:29] LABS: Bilirubin Negative (Negative); Blood, Urine Negative (Negative); Clarity Clear (Clear); Glucose, Urine (Dipstick) Normal (Negative); Ketone, Urine Negative (Negative); Leukocyte Negative Leu/uL (Negative); Nitrite Negative (Negative); Protein, Urine (Dipstick) Negative (Neg-Trace); Specific Gravity, Urine 1.007 (1.002-1.036); Urobilinogen Normal mg/dL (Less than 2); pH, Urine 5.5 (5.0-9.0)
== END | disposition home or self-care (01) ==
LOC: ERS 10:28
DX: R20.2 Paresthesia of skin (principal); R51.9 Headache, unspecified; M25.511 Pain in right shoulder; I10 Essential (primary) hypertension; E11.9 Type 2 diabetes mellitus without complications; E78.5 Hyperlipidemia, unspecified; E78.00 Pure hypercholesterolemia, unspecified; J43.9 Emphysema, unspecified; F17.210 Nicotine dependence, cigarettes, uncomplicated; Z79.51 Long term (current) use of inhaled steroids; Z79.899 Other long term (current) drug therapy
CPT/HCPCS: 36415; 36416; 71045; 80053; 81003; 83690; 83880; 84484; 85025; 93005

== ENCOUNTER 2021-10-10 02:52 | Emergency (ER) | payer SELFPAY ==
[2021-10-10 03:32] LABS: Bilirubin Negative (Negative); Blood, Urine Negative (Negative); Clarity Clear (Clear); Glucose, Urine (Dipstick) Normal (Negative); Ketone, Urine Negative (Negative); Leukocyte Negative Leu/uL (Negative); Nitrite Negative (Negative); Protein, Urine (Dipstick) Negative (Neg-Trace); Specific Gravity, Urine 1.005 (1.002-1.036); Urobilinogen Normal mg/dL (Less than 2)
[2021-10-10 03:41] LABS: Amphetamine Not Detected (NotDetected); Barbiturates Screen Not Detected (NotDetected); Benzodiazepine Screen Not Detected (NotDetected); Cocaine Metabolite Screen Not Detected (NotDetected); Methadone Not Detected (NotDetected); Methamphetamine Not Detected (NotDetected); Opiate Screen Detected (NotDetected); Oxycodone Screen Not Detected (NotDetected); Phencyclidine (PCP) Not Detected (NotDetected); THC/Cannabinoid Screen Not Detected (NotDetected); Tricyclic Screen Not Detected (NotDetected)
[2021-10-10 04:24] LABS: #Basophils 0.1 thou/uL (0.0-0.2); #Eosinphils 0.2 thou/uL (0.0-0.7); #Lymphocytes 1.8 thou/uL (1.20-3.40); #Monocytes 0.6 thou/uL (0.11-0.59); #Neutrophils 3.1 thou/uL (1.40-6.50); %Basophils 1.1 % (0.0-1.0); %Eosinophils 3.2 % (0.0-10.0); %Lymphocytes 30.8 % (21.0-51.0); %Monocytes 10.4 % (0.0-10.0); %Neutrophils 54.5 % (42.0-75.0); Hemoglobin 13.4 g/dL (12.0-16.0); Mean Corpuscular HGB CONC 33.8 g/dL (32.0-36.0); Mean Corpuscular Hemoglobin 34.8 pg (27.0-31.0); Mean Platelet Volume 6.8 fL (7.4-10.4); Platelet Count 168 thou/uL (130-400); RBC Distribution Width 11.6 % (11.5-14.5); Red Blood Cell (RBC) Count 3.86 mill/uL (4.20-5.40); White Blood Cell (WBC) Count 5.7 thou/uL (4.8-10.8)
[2021-10-10 04:46] LABS: ALT (SGPT) 18 U/L (8-55); AST (SGOT) 20 U/L (5-34); Acetaminophen Less than 10.0 mcg/mL (10.0-30.0); Albumin 3.6 g/dL (3.4-4.8); Alcohol 95 mg/dL (Less than 10); Alkaline Phosphatase 54 U/L (40-110); Anion Gap 14 mmol/L (10-20); BUN (Urea Nitrogen) 9 mg/dL (9.8-20.1); Bilirubin, Total 0.3 mg/dL (0.2-1.2); Calc. Creatinine Clearance 0 mL/min (70-130); Calcium 9.1 mg/dL (7.8-10.44); Carbon Dioxide 20 mmol/L (23-31); Chloride 107 mmol/L (98-107); Globulin 3.2 g/dL (2.4-3.5); Glucose 94 mg/dL (80-115); Potassium 3.9 mmol/L (3.5-5.1); Protein, Total 6.8 g/dL (5.8-8.1); Salicylate Less than 8.0 mg/dL (15.0-30.0); Sodium 137 mmol/L (136-145)
== END 2021-10-10 13:30 | disposition home or self-care (01) ==
LOC: ERS 02:52
DX: F13.10 Sedative, hypnotic or anxiolytic abuse, uncomplicated (principal); F10.129 Alcohol abuse with intoxication, unspecified; Y90.4 Blood alcohol level of 80-99 mg/100 ml; E11.9 Type 2 diabetes mellitus without complications; E78.5 Hyperlipidemia, unspecified; E78.00 Pure hypercholesterolemia, unspecified; I10 Essential (primary) hypertension; M06.9 Rheumatoid arthritis, unspecified; J43.9 Emphysema, unspecified; F17.210 Nicotine dependence, cigarettes, uncomplicated; Z79.899 Other long term (current) drug therapy; Z86.73 Personal history of transient ischemic attack (TIA), and cerebral infarction without residual deficits
CPT/HCPCS: 36415; 51701; 80053; 80306; 80307; 81003; 85025; 93005

== ENCOUNTER 2021-10-13 21:46 | Inpatient (IN) | payer SELFPAY ==
[2021-10-13] MEDS ORDERED: Propofol 1,000 MG/100 ML VIAL IV ONE (21:48)
[2021-10-13] MEDS ORDERED: EPINEPHrine 1 MG/10 ML Abboject SYRINGE ONE (22:02)
[2021-10-13 22:03] LABS: #Basophils 0.1 thou/uL (0.0-0.2); #Eosinphils 0.2 thou/uL (0.0-0.7); #Lymphocytes 4.4 thou/uL (1.20-3.40); #Monocytes 0.4 thou/uL (0.11-0.59); #Neutrophils 6.2 thou/uL (1.40-6.50); %Eosinophils 1.5 % (0.0-10.0); %Monocytes 3.2 % (0.0-10.0); %Neutrophils 55.2 % (42.0-75.0); Hemoglobin 16.2 g/dL (12.0-16.0); Mean Corpuscular HGB CONC 33.1 g/dL (32.0-36.0); Mean Corpuscular Hemoglobin 35.2 pg (27.0-31.0); Mean Platelet Volume 7.5 fL (7.4-10.4); Platelet Count 186 thou/uL (130-400); RBC Distribution Width 11.5 % (11.5-14.5); Red Blood Cell (RBC) Count 4.61 mill/uL (4.20-5.40); White Blood Cell (WBC) Count 11.2 thou/uL (4.8-10.8)
[2021-10-13 22:10] LABS: Actual Bicarbonate (HCO3a) 12.6 mEq/L (22-28); Analyzer IN Cardio ER; Base Excess (BEa) -16.5 mEq/L (-2.0 to +3.0); CO2 Tension 41.6 mmHg (35.0-45.0); Calcium, Ionized (arterial) 1.07 mmol/L (1.12-1.30); Carboxyhemoglobin (COHb) 3.2 gm% (0.0-3.0); Hemoglobin (Hb) 14.1 g/dL (12.0-16.0); O2 Tension (PaO2), arterial 104.3 mmHg (> 80.0); Potassium - ABG Lab 3.22 mmol/L (3.70-5.30)
[2021-10-13 22:12] LABS: Puncture Site LRA
[2021-10-13 22:20] LABS: ALT (SGPT) 16 U/L (8-55); AST (SGOT) 20 U/L (5-34); Albumin 3.2 g/dL (3.4-4.8); Alkaline Phosphatase 64 U/L (40-110); Anion Gap 15 mmol/L (10-20); BUN (Urea Nitrogen) 13 mg/dL (9.8-20.1); Bilirubin, Total 0.3 mg/dL (0.2-1.2); CK (CPK) 71 U/L (29-168); Calc. Creatinine Clearance 0 mL/min (70-130); Carbon Dioxide 16 mmol/L (23-31); Chloride 110 mmol/L (98-107); Globulin 2.9 g/dL (2.4-3.5); Glucose 159 mg/dL (80-115); Magnesium 1.7 mg/dL (1.6-2.6); Potassium 3.7 mmol/L (3.5-5.1); Protein, Total 6.1 g/dL (5.8-8.1); Sodium 137 mmol/L (136-145)
[2021-10-13] MEDS ORDERED: Sodium Bicarb 50 MEQ/50 ML Abboject 8.4% SYRINGE ONE (22:23)
[2021-10-13] MEDS ORDERED: Norepinephrine 8 MG/0.9% NS 250 ML IVPB PRN (23:23)
[2021-10-13] MEDS ORDERED: Ondansetron ODT 4 MG TAB PO PRN (23:23)
[2021-10-13] MEDS ORDERED: Ondansetron PF 4 MG/2 ML Vial IVP PRN (23:23)
[2021-10-13] MEDS ORDERED: Ventilator Sedation Protocol 1 EACH FS SCH (23:30)
[2021-10-13] MEDS ORDERED: DISCONTINUE PREVIOUS NARCOTIC PAIN MEDICATIONS AND BENZODIAZEPINES FS SCH (23:30)
[2021-10-13] MEDS ORDERED: Morphine 4 MG/ML VIAL SLOW IVP PRN (23:30)
[2021-10-13] MEDS ORDERED: Fentanyl BOLUS 250 ML IVPB PRN (23:30)
[2021-10-13] MEDS ORDERED: Propofol 1,000 MG/100 ML VIAL IV PRN (23:30)
[2021-10-13] MEDS ORDERED: Propofol BOLUS 1,000 MG/100 ML VIAL IV PRN (23:30)
[2021-10-13] MEDS ORDERED: HumaLOG 300 UNITS/3 ML VIAL SC PRN ×2 (23:35)
[2021-10-13] MEDS ORDERED: Dextrose 50% Abboject 50 ML SYRINGE SLOW IVP PRN (23:35)
[2021-10-13] MEDS ORDERED: Dextrose 5% in Water 1,000 ML IV PRN (23:35)
[2021-10-14 00:07] LABS: SARS-CoV-2 NAA Rapid Test Not Detected (NotDetected)
[2021-10-14 00:54] LABS: Bilirubin Negative (Negative); Blood, Urine 2+ (Negative); Clarity Turbid (Clear); Glucose, Urine (Dipstick) 50 mg/dL (Negative); Ketone, Urine Negative (Negative); Leukocyte Negative Leu/uL (Negative); Nitrite Negative (Negative); Protein, Urine (Dipstick) 100 mg/dL (Neg-Trace); Specific Gravity, Urine 1.012 (1.002-1.036); Urobilinogen Normal mg/dL (Less than 2); WBC/HPF 0-3 HPF (0-3); pH, Urine 5.5 (5.0-9.0)
[2021-10-14 00:55] LABS: Bacteria/HPF Rare-Few HPF (None Seen)
[2021-10-14 01:58] LABS: Troponin I 0.016 ng/mL (< 0.028)
[2021-10-14] MEDS: Sodium Chloride 0.9% 1,000 ML IV SCH ×2 (02:09→11:43)
[2021-10-14] MEDS: Lorazepam 2 MG/ML VIAL SLOW IVP PRN ×5 (02:39→22:29)
[2021-10-14 03:57] LABS: #Lymphocytes 0.5 thou/uL (1.20-3.40); #Monocytes 0.6 thou/uL (0.11-0.59); #Neutrophils 12.9 thou/uL (1.40-6.50); %Basophils 0.1 % (0.0-1.0); %Eosinophils 0.1 % (0.0-10.0); %Lymphocytes 3.7 % (21.0-51.0); %Neutrophils 92.1 % (42.0-75.0); Hemoglobin 14.5 g/dL (12.0-16.0); Mean Corpuscular HGB CONC 33.7 g/dL (32.0-36.0); Mean Corpuscular Hemoglobin 34.2 pg (27.0-31.0); Mean Platelet Volume 7.5 fL (7.4-10.4); Platelet Count 162 thou/uL (130-400); RBC Distribution Width 11.6 % (11.5-14.5); Red Blood Cell (RBC) Count 4.25 mill/uL (4.20-5.40); White Blood Cell (WBC) Count 14.1 thou/uL (4.8-10.8)
[2021-10-14 04:19] LABS: Anion Gap 12 mmol/L (10-20); BUN (Urea Nitrogen) 14 mg/dL (9.8-20.1); Calc. Creatinine Clearance 75 mL/min (70-130); Calcium 7.8 mg/dL (7.8-10.44); Carbon Dioxide 19 mmol/L (23-31); Chloride 110 mmol/L (98-107); Glucose 153 mg/dL (80-115); Potassium 3.3 mmol/L (3.5-5.1); Sodium 138 mmol/L (136-145)
[2021-10-14 04:20] LABS: Troponin I 0.018 ng/mL (< 0.028)
[2021-10-14] MEDS ORDERED: Electrolyte Replacement Protocol 1 EACH FS SCH (04:45)
[2021-10-14] MEDS: Potassium Chloride 20 MEQ in Premix Bag 1 BAG IVPB SCH ×2 (05:50→08:49)
[2021-10-14 05:54] LABS: Magnesium 1.5 mg/dL (1.6-2.6)
[2021-10-14] MEDS ORDERED: Magnesium 2 GM/50 ML(in water) 2 GM in Premix Bag 1 BAG IVPB SCH ×2 (06:00→09:00)
[2021-10-14 07:28] LABS: Actual Bicarbonate (HCO3a) 17.6 mEq/L (22-28); Base Excess (BEa) -3.1 mEq/L (-2.0 to +3.0); Calcium, Ionized (arterial) 1.11 mmol/L (1.12-1.30); Carboxyhemoglobin (COHb) 0.4 gm% (0.0-3.0); Hemoglobin (Hb) 14.3 g/dL (12.0-16.0); O2 Tension (PaO2), arterial 245.2 mmHg (> 80.0); Potassium - ABG Lab 3.83 mmol/L (3.70-5.30); pH, Arterial 7.52 (7.35-7.45)
[2021-10-14 07:30] LABS: Puncture Site RRA
[2021-10-14] MEDS: Enoxaparin Sodium 40 MG/0.4 ML SYRINGE SC SCH (08:51)
[2021-10-14] MEDS ORDERED: Lorazepam 2 MG/ML VIAL SLOW IVP PRN (08:57)
[2021-10-14] MEDS: fentaNYL Citrate-0.9 % NaCl/PF 100 ML IV SCH (09:11)
[2021-10-14] MEDS: Thiamine HCl 200 MG/2 ML VIAL SLOW IVP SCH (16:52)
[2021-10-14] MEDS: methylPREDNISolone Sod Succ/PF 125 MG/2 ML VIAL IVP SCH ×2 (16:54→23:33)
[2021-10-14 16:59] LABS: Anion Gap 12 mmol/L (10-20); BUN (Urea Nitrogen) 13 mg/dL (9.8-20.1); Calc. Creatinine Clearance 83 mL/min (70-130); Calcium 7.9 mg/dL (7.8-10.44); Carbon Dioxide 17 mmol/L (23-31); Chloride 112 mmol/L (98-107); Glucose 109 mg/dL (80-115); Magnesium 2.1 mg/dL (1.6-2.6); Sodium 137 mmol/L (136-145)
[2021-10-14] MEDS: Potassium Chloride 20 MEQ in Lactated Ringer's 1,000 ML IV SCH (17:07)
[2021-10-14] MEDS: diphenhydrAMINE 50 MG in Sodium Chloride 0.9% 50 ML IVPB SCH ×2 (17:07→23:32)
[2021-10-14] MEDS: Famotidine/PF 20 mg/2ml Vial SLOW IVP SCH (20:25)
[2021-10-15] MEDS: Lorazepam 2 MG/ML VIAL SLOW IVP PRN ×4 (02:20→15:16)
[2021-10-15] MEDS: fentaNYL Citrate-0.9 % NaCl/PF 100 ML IV SCH ×2 (03:12→21:03)
[2021-10-15] MEDS: Potassium Chloride 20 MEQ in Lactated Ringer's 1,000 ML IV SCH ×3 (03:34→23:21)
[2021-10-15 04:29] LABS: #Lymphocytes 0.6 thou/uL (1.20-3.40); #Monocytes 0.4 thou/uL (0.11-0.59); #Neutrophils 9.7 thou/uL (1.40-6.50); %Basophils 0.2 % (0.0-1.0); %Eosinophils 0.1 % (0.0-10.0); %Lymphocytes 5.9 % (21.0-51.0); %Monocytes 3.6 % (0.0-10.0); %Neutrophils 90.2 % (42.0-75.0); Mean Corpuscular HGB CONC 33.4 g/dL (32.0-36.0); Mean Corpuscular Hemoglobin 34.2 pg (27.0-31.0); Platelet Count 154 thou/uL (130-400); RBC Distribution Width 11.6 % (11.5-14.5); Red Blood Cell (RBC) Count 3.81 mill/uL (4.20-5.40); White Blood Cell (WBC) Count 10.7 thou/uL (4.8-10.8)
[2021-10-15 04:53] LABS: Anion Gap 12 mmol/L (10-20); BUN (Urea Nitrogen) 11 mg/dL (9.8-20.1); Calc. Creatinine Clearance 82 mL/min (70-130); Calcium 8.2 mg/dL (7.8-10.44); Carbon Dioxide 19 mmol/L (23-31); Chloride 107 mmol/L (98-107); Glucose 162 mg/dL (80-115); Potassium 3.8 mmol/L (3.5-5.1); Sodium 134 mmol/L (136-145)
[2021-10-15] MEDS: methylPREDNISolone Sod Succ/PF 125 MG/2 ML VIAL IVP SCH ×4 (06:13→23:23)
[2021-10-15] MEDS: diphenhydrAMINE 50 MG in Sodium Chloride 0.9% 50 ML IVPB SCH ×3 (06:46→17:11)
[2021-10-15 07:53] LABS: Actual Bicarbonate (HCO3a) 21.2 mEq/L (22-28); Base Excess (BEa) -0.7 mEq/L (-2.0 to +3.0); CO2 Tension 28.1 mmHg (35.0-45.0); Calcium, Ionized (arterial) 1.13 mmol/L (1.12-1.30); Carboxyhemoglobin (COHb) 0.5 gm% (0.0-3.0); Hemoglobin (Hb) 13.9 g/dL (12.0-16.0); O2 Tension (PaO2), arterial 135.7 mmHg (> 80.0); Potassium - ABG Lab 3.82 mmol/L (3.70-5.30)
[2021-10-15 07:54] LABS: ALV-art Gradient 114.375 mmHg (0-20); Puncture Site RRA
[2021-10-15] MEDS: Enoxaparin Sodium 40 MG/0.4 ML SYRINGE SC SCH (09:12)
[2021-10-15] MEDS: Famotidine/PF 20 mg/2ml Vial SLOW IVP SCH ×2 (09:12→21:03)
[2021-10-15] MEDS ORDERED: Lisinopril 20 MG TAB PO SCH (10:15)
[2021-10-15] MEDS: Thiamine HCl 200 MG/2 ML VIAL SLOW IVP SCH (17:12)
[2021-10-16] MEDS: diphenhydrAMINE 50 MG in Sodium Chloride 0.9% 50 ML IVPB SCH ×4 (00:07→17:46)
[2021-10-16] MEDS: Lorazepam 2 MG/ML VIAL SLOW IVP PRN ×2 (01:27→09:30)
[2021-10-16] MEDS: methylPREDNISolone Sod Succ/PF 125 MG/2 ML VIAL IVP SCH ×3 (05:20→17:45)
[2021-10-16 07:29] LABS: Actual Bicarbonate (HCO3a) 22.8 mEq/L (22-28); Base Excess (BEa) -1.8 mEq/L (-2.0 to +3.0); CO2 Tension 38.3 mmHg (35.0-45.0); Carboxyhemoglobin (COHb) 0.6 gm% (0.0-3.0); O2 Tension (PaO2), arterial 130.6 mmHg (> 80.0); Potassium - ABG Lab 4.08 mmol/L (3.70-5.30); pH, Arterial 7.39 (7.35-7.45)
[2021-10-16 07:38] LABS: ALV-art Gradient 106.725 mmHg (0-20); Puncture Site RRA
[2021-10-16 08:16] LABS: Anion Gap 13 mmol/L (10-20); BUN (Urea Nitrogen) 10 mg/dL (9.8-20.1); Calc. Creatinine Clearance 81 mL/min (70-130); Calcium 8.7 mg/dL (7.8-10.44); Carbon Dioxide 19 mmol/L (23-31); Chloride 104 mmol/L (98-107); Glucose 137 mg/dL (80-115); Potassium 4.4 mmol/L (3.5-5.1); Sodium 132 mmol/L (136-145)
[2021-10-16] MEDS: Aspirin Chewable 81 MG TAB PO SCH (09:30)
[2021-10-16] MEDS: Famotidine/PF 20 mg/2ml Vial SLOW IVP SCH ×2 (09:30→19:57)
[2021-10-16] MEDS: Enoxaparin Sodium 40 MG/0.4 ML SYRINGE SC SCH (09:30)
[2021-10-16] MEDS: Lisinopril 20 MG TAB PO SCH (09:30)
[2021-10-16 09:59] LABS: Hemoglobin 14.5 g/dL (12.0-16.0); Mean Corpuscular Hemoglobin 33.9 pg (27.0-31.0); Mean Platelet Volume 8.9 fL (7.4-10.4); Platelet Count 98 thou/uL (130-400); RBC Distribution Width 11.7 % (11.5-14.5); Red Blood Cell (RBC) Count 4.26 mill/uL (4.20-5.40); White Blood Cell (WBC) Count 16.3 thou/uL (4.8-10.8)
[2021-10-16 10:01] LABS: #Eosinphils 0.1 thou/uL (0.0-0.7); #Lymphocytes 0.8 thou/uL (1.20-3.40); #Monocytes 1.2 thou/uL (0.11-0.59); #Neutrophils 14.2 thou/uL (1.40-6.50); %Eosinophils 0.4 % (0.0-10.0); %Lymphocytes 5.2 % (21.0-51.0); %Monocytes 7.6 % (0.0-10.0); %Neutrophils 86.9 % (42.0-75.0)
[2021-10-16 10:02] LABS: Band 1 % (5-11); Lymphocytes 9 % (21-51); MDiff Complete? YES; Monocytes 2 % (0-10); Neutrophil 88 % (42-75); Platelet Clumps MODERATE; RBC Morphology Normal
[2021-10-16] MEDS: fentaNYL Citrate-0.9 % NaCl/PF 100 ML IV SCH (10:54)
[2021-10-16] MEDS: Potassium Chloride 20 MEQ in Lactated Ringer's 1,000 ML IV SCH ×2 (12:11→19:57)
[2021-10-16] MEDS: Thiamine HCl 200 MG/2 ML VIAL SLOW IVP SCH (16:05)
[2021-10-16] MEDS ORDERED: hydrALAZINE 20 MG/ML VIAL SLOW IVP PRN (16:07)
[2021-10-17 04:35] LABS: #Lymphocytes 0.9 thou/uL (1.20-3.40); #Monocytes 1.4 thou/uL (0.11-0.59); #Neutrophils 11.1 thou/uL (1.40-6.50); %Basophils 0.1 % (0.0-1.0); %Eosinophils 0.1 % (0.0-10.0); %Lymphocytes 6.5 % (21.0-51.0); %Monocytes 10.2 % (0.0-10.0); Hemoglobin 13.3 g/dL (12.0-16.0); Mean Corpuscular HGB CONC 33.7 g/dL (32.0-36.0); Mean Corpuscular Hemoglobin 34.8 pg (27.0-31.0); Platelet Count 142 thou/uL (130-400); RBC Distribution Width 11.5 % (11.5-14.5); Red Blood Cell (RBC) Count 3.83 mill/uL (4.20-5.40); White Blood Cell (WBC) Count 13.4 thou/uL (4.8-10.8)
[2021-10-17 05:01] LABS: Anion Gap 11 mmol/L (10-20); BUN (Urea Nitrogen) 11 mg/dL (9.8-20.1); Calc. Creatinine Clearance 79 mL/min (70-130); Calcium 9.2 mg/dL (7.8-10.44); Carbon Dioxide 27 mmol/L (23-31); Chloride 101 mmol/L (98-107); Glucose 122 mg/dL (80-115); Potassium 4.1 mmol/L (3.5-5.1); Sodium 135 mmol/L (136-145)
[2021-10-17] MEDS: diphenhydrAMINE 50 MG in Sodium Chloride 0.9% 50 ML IVPB SCH ×4 (05:45→17:35)
[2021-10-17] MEDS: methylPREDNISolone Sod Succ/PF 125 MG/2 ML VIAL IVP SCH ×4 (05:45→17:35)
[2021-10-17] MEDS: Potassium Chloride 20 MEQ in Lactated Ringer's 1,000 ML IV SCH (07:25)
[2021-10-17] MEDS: Famotidine/PF 20 mg/2ml Vial SLOW IVP SCH ×2 (07:34→20:45)
[2021-10-17] MEDS: Lisinopril 20 MG TAB PO SCH ×2 (07:35→20:45)
[2021-10-17] MEDS: Aspirin Chewable 81 MG TAB PO SCH (07:35)
[2021-10-17] MEDS: Enoxaparin Sodium 40 MG/0.4 ML SYRINGE SC SCH (07:35)
[2021-10-17 10:52] VITALS: BMI 27.3
[2021-10-17] MEDS ORDERED: Cepastat Lozenges 1 LOZ PO PRN (15:57)
[2021-10-17] MEDS: Thiamine HCl 200 MG/2 ML VIAL SLOW IVP SCH (17:35)
[2021-10-18] MEDS: diphenhydrAMINE 50 MG in Sodium Chloride 0.9% 50 ML IVPB SCH ×3 (00:30→12:13)
[2021-10-18] MEDS: methylPREDNISolone Sod Succ/PF 125 MG/2 ML VIAL IVP SCH ×3 (00:30→12:12)
[2021-10-18 05:39] VITALS: TEMP 97.9
[2021-10-18] MEDS ORDERED: Amlodipine 5 MG TAB PO SCH (09:00)
[2021-10-18] MEDS: Aspirin Chewable 81 MG TAB PO SCH (09:12)
[2021-10-18] MEDS: Famotidine/PF 20 mg/2ml Vial SLOW IVP SCH (09:13)
[2021-10-18] MEDS: Lisinopril 20 MG TAB PO SCH (09:13)
[2021-10-18] MEDS: Enoxaparin Sodium 40 MG/0.4 ML SYRINGE SC SCH (09:13)
[2021-10-18 12:12] VITALS: BP 143/84
== END 2021-10-18 16:52 | disposition home or self-care (01) | DRG 915 ==
LOC: ERS 21:46 → CCU 23:02 → T4-B 10-17 11:09
PROVIDERS: ADMIT Internal Medicine; ATTEND Internal Medicine
PROC: 5A1945Z Respiratory Ventilation, 24-96 Consecutive Hours (ICD-10-PCS; principal; 2021-10-13)
PROC: 0D9670Z Drainage of Stomach with Drainage Device, Via Natural or Artificial Opening (ICD-10-PCS; 2021-10-13)
PROC: 0BH17EZ Insertion of Endotracheal Airway into Trachea, Via Natural or Artificial Opening (ICD-10-PCS; 2021-10-13)
PROC: 3E033XZ Introduction of Vasopressor into Peripheral Vein, Percutaneous Approach (ICD-10-PCS; 2021-10-13)
DX: T78.2XXA Anaphylactic shock, unspecified, initial encounter (principal); J96.01 Acute respiratory failure with hypoxia; N17.9 Acute kidney failure, unspecified; E87.2 Acidosis; E87.3 Alkalosis; Z20.822 Contact with and (suspected) exposure to COVID-19; T63.441A Toxic effect of venom of bees, accidental (unintentional), initial encounter; E11.51 Type 2 diabetes mellitus with diabetic peripheral angiopathy without gangrene; F17.210 Nicotine dependence, cigarettes, uncomplicated; E78.5 Hyperlipidemia, unspecified; E78.00 Pure hypercholesterolemia, unspecified; M06.9 Rheumatoid arthritis, unspecified; J43.9 Emphysema, unspecified; F31.9 Bipolar disorder, unspecified; F25.9 Schizoaffective disorder, unspecified; E11.22 Type 2 diabetes mellitus with diabetic chronic kidney disease; N18.9 Chronic kidney disease, unspecified; F10.20 Alcohol dependence, uncomplicated; I12.9 Hypertensive chronic kidney disease with stage 1 through stage 4 chronic kidney disease, or unspecified chronic kidney disease; E83.42 Hypomagnesemia; Z90.710 Acquired absence of both cervix and uterus; Z78.1 Physical restraint status; Z88.5 Allergy status to narcotic agent; Z98.890 Other specified postprocedural states; Z88.8 Allergy status to other drugs, medicaments and biological substances; Z91.041 Radiographic dye allergy status; Z79.899 Other long term (current) drug therapy; Z79.84 Long term (current) use of oral hypoglycemic drugs; Z79.82 Long term (current) use of aspirin; Z86.19 Personal history of other infectious and parasitic diseases
CPT/HCPCS: 36415; 36416; 36600; 51702; 71045; 80048; 80053; 81003; 81015; 82550; 82805; 83605; 83735; 84484; 85025; 93005; 94002; 94003; 94640; 96374; 96375; J0171; J0360; J1200; J1650; J1815; J2060; J2270; J2405; J2704; J2930; J3411; J3475; J3480; J7050; J7120; J7620; S0028; U0002

== ENCOUNTER 2021-10-24 11:55 | Emergency (ER) | payer SELFPAY | END 2021-10-24 13:38 | disposition left against medical advice (07) | LOC: ERS 11:55 | DX: Z53.21 Procedure and treatment not carried out due to patient leaving prior to being seen by health care provider (principal) ==

== ENCOUNTER 2022-04-17 13:35 | Outpatient (CLI) | payer OTHER | END 2022-04-17 13:36 | disposition home or self-care (01) | LOC: BICMAMMO 13:35 | PROVIDERS: ATTEND Family Medicine Sports Medicine | DX: Z12.31 Encounter for screening mammogram for malignant neoplasm of breast (principal); Z80.3 Family history of malignant neoplasm of breast | CPT/HCPCS: 77063; 77067 ==